=== PATIENT | female | born 1945 | race Caucasian/White ===

== ENCOUNTER 2017-06-04 16:24 | Inpatient (IN) | payer OTHER, MEDICARE ==
[2017-06-02 22:36] VITALS: PULSE 87
[~2017-06-04] VITALS: Ht 162.6 cm; Wt 60.0 kg
[~2017-06-04 16:24] MED LIST: ALBU1AER INH; TRAM50 PO; XANA1TAB6 PO
[2017-06-04 16:27] VITALS: BP 131/89; PULSE 111; RESP 16; TEMP 98; O2SAT 95
[2017-06-04 16:47] VITALS: BP 120/73; PULSE 102; RESP 24; O2SAT 97
[2017-06-04] MEDS ORDERED: PERC10TA27 PO ×2 (16:52)
[2017-06-04] MEDS ORDERED: SODIUM CHLORIDE 0.9% FLUSH 10 ML FLUSH IVF PRN ×2 (17:15)
--- NOTE | 2017-06-04 17:27 | RADRPT ---
EXAM DATE/TIME: 06/04/2017 17:13 [facility] COMPARISON: CHEST SINGLE AP, March 14, 2016, 16:09. INDICATIONS : Short of breath. MEDICAL HISTORY : None. SURGICAL HISTORY : None. ENCOUNTER: Initial ACUITY: 1 day PAIN SCORE: 08/16 LOCATION: Bilateral chest FINDINGS: The right costophrenic angle is not included in the [id number]-[id number] the exam. There is a small triangu lar shape infiltrate in the left lower lung measuring up to 1.5 cm without loss of delineation of the left hemidiaphragm. The remainder of the lungs are clear. The heart is normal size. No evidence o f pneumothorax. CONCLUSION: Small infiltrate at the left lung base. Tenzin Guerrero MD on June 04, 2017 at 17:25 Board Certified Radiologist. This report was verified electronically.
--- NOTE | 2017-06-04 17:27 | RADRPT ---
EXAM DATE/TIME: 06/04/2017 17:13 [facility] COMPARISON: CHEST SINGLE AP, March 14, 2016, 16:09. INDICATIONS : Short of breath. MEDICAL HISTORY : None. SURGICAL HISTORY : None. ENCOUNTER: Initial ACUITY: 1 day PAIN SCORE: 08/16 LOCATION: Bilateral chest FINDINGS: The right costophrenic angle is not included in the [id number] the exam. There is a small triangu lar shape infiltrate in the left lower lung measuring up to 1.5 cm without loss of delineation of the left hemidiaphragm. The remainder of the lungs are clear. The heart is normal size. No evidence o f pneumothorax. CONCLUSION: Small infiltrate at the left lung base. Tenzin Guerrero MD on June 04, 2017 at 17:25 Board Certified Radiologist. This report was verified electronically.
--- NOTE | 2017-06-04 17:27 | RADRPT ---
EXAM DATE/TIME: 06/04/2017 17:13 [facility] COMPARISON: CHEST SINGLE AP, March 14, 2016, 16:09. INDICATIONS : Short of breath. MEDICAL HISTORY : None. SURGICAL HISTORY : None. ENCOUNTER: Initial ACUITY: 1 day PAIN SCORE: 08/16 LOCATION: Bilateral chest FINDINGS: The right costophrenic angle is not included in the [id number] the exam. There is a small triangu lar shape infiltrate in the left lower lung measuring up to 1.5 cm without loss of delineation of the left hemidiaphragm. The remainder of the lungs are clear. The heart is normal size. No evidence o f pneumothorax. CONCLUSION: Small infiltrate at the left lung base. Tenzin Guerrero MD on June 04, 2017 at 17:25 Board Certified Radiologist. This report was verified electronically.
--- NOTE | 2017-06-04 17:59 | PD ---
HPI . Myalgias Chief Complaint: Medical Clearance Time Seen by Provider: 16:51 Travel History International Travel<30 days: No Contact w/Intl Traveler<30days: No Traveled to known affect area: No History of Present Illness HPI This patient presents here with the chief complaint of myalgias and fatigue. She states that her symptoms all started over a month ago when her bones started aching. She states that they've been started burning. She then developed right sided body pain and low back pain. She was seen at [facility] warm and close to the onset of symptoms and was given a prescription for prednisone and Bactrim. She states that she has no idea what the Bactrim was for. She states that she was told that she did not have any evidence of urinary tract infection or pneumonia or any other bacterial infection. Nonetheless, she subsequently followed up with her primary care physician who prescribed Levaquin for 10 days. She does not know why she was given an antibiotic. She states that she did not feel any better with the Levaquin. She states that she was subsequently went back to [facility] and was admitted to the hospital multiple tests done. She states that the etiology of her myalgias and fatigue was not determined and she was eventually discharged home. She states she went home about 4 or 5 days. Since that time, she has been basically bedbound. She reports great difficulty even walking to the bathroom because of weakness, fatigue and myalgias. She thus presents to us today for a third opinion. She reports no exacerbating or relieving factors. Associated symptoms include insomnia, headache and poor appetite. Symptoms are reportedly severe. The patient reports that she is concerned that she has been poisoned. The patient reports no known history of lung disease and states that she smokes 1 cigarette per day. On review of her records, she has been treated here before for COPD exacerbation. She was an admitted smoker at that time. I was about a year ago. [facility] Past Medical History Arthritis: Yes Anxiety: Yes (PANIC ATTACKS) Cancer: Yes (SKIN (NOSE); MELANOMA IN 2007) Cardiovascular Problems: No COPD: Yes Diabetes: No Diminished Hearing: No Endocrine: No Gastrointestinal Disorders: No Glaucoma: No Genitourinary: No Hepatitis: No Hiatal Hernia: No Hypertension: No Implanted Vascular Access Dvce: Yes Psychiatric: Yes (PANIC ATTACKS-NONE SINCE 08/13) Reproductive: No Respiratory: Yes Immunizations Current: No Thyroid Disease: No Influenza Vaccination: Yes PNEUMOCCOCAL Vaccine (Year): 2 ?: Not Menopausal: Yes Past Surgical History Abdominal Surgery: No Appendectomy: Yes Cardiac Surgery: No Ear Surgery: No Eye Surgery: Yes (LENS IMPLANT/LEFT 1988) Genitourinary Surgery: No Gynecologic Surgery: Yes (1988 HYSTERECTOMY) Hysterectomy: Yes Neurologic Surgery: No Oral Surgery: No Pacemaker: No Thoracic Surgery: No Other Surgery: Yes (RIGHT FOOT SURG) Social History Alcohol Use: No Tobacco Use: Yes (1 CIGARETTE/DAY) Substance Use: No Allergies-Medications (Allergen,Severity, Reaction): Coded Allergies: codeine (Unverified Allergy, Severe, HIVES, 06/04/17) Reported Meds & Prescriptions Reported Meds & Active Scripts Active Reported Percocet (Oxycodone-Acetaminophen) 10-325 mg Tab 1 Tab PO Q6H PRN Review of Systems General / Constitutional: No: Fever, Chills Cardiovascular: Positive: Chest Pain or Discomfort Respiratory: Positive: Shortness of Breath Gastrointestinal: Positive: Loss of Appetite Musculoskeletal: Positive: Myalgias Neurologic: Positive: Weakness Physical Exam Narrative Vital Signs Date Time Temp Pulse Resp B/P (MAP) Pulse Ox O2 Delivery O2 Flow Rate FiO2 06/04/17 16:47 102 24 120/73 (89) 97 Room Air 06/04/17 16:27 98.0 111 16 131/89 (103) 95 GENERAL: The patient is awake and alert and does not appear to be in any acute distress. SKIN: warm/dry. HEAD: Normocephalic. Atraumatic. EYES: Pupils equal and round. No scleral icterus. No injection or drainage. ENT: No nasal bleeding or discharge. Mucous membranes pink and moist. NECK: Trachea midline. Full range of motion without pain.. CARDIOVASCULAR: Regular rate and rhythm. Heart sounds are normal. RESPIRATORY: No accessory muscle use. Good air movement. Diffuse, coarse expiratory wheezing. GASTROINTESTINAL: Abdomen soft. Nontender. Bowel sounds present. Nondistended. MUSCULOSKELETAL: No obvious deformities. NEUROLOGICAL: Awake and alert. No obvious cranial nerve deficits. Motor grossly within normal limits. Normal speech. Eowlig-abfj-zdjojd exam is intact. PSYCHIATRIC: Appropriate mood and affect; insight and judgment normal. Data Data Last Documented VS Vital Signs Date Time Temp Pulse Resp B/P (MAP) Pulse Ox O2 Delivery O2 Flow Rate FiO2 10/29/17 18:49 92 16 118/88 (98) 98 Room Air 06/04/17 16:27 98.0 Orders Orders Electrocardiogram (06/04/17 17:08) B-Type Natriuretic Peptide (06/04/17 17:08) Ckmb (Isoenzyme) Profile (06/04/17 17:08) Complete Blood Count With Diff (06/04/17 17:08) Comprehensive Metabolic Panel (06/04/17 17:08) D-Dimer (06/04/17 17:08) Magnesium (Mg) (06/04/17 17:08) Prothrombin Time / Inr (Pt) (06/04/17 17:08) Act Partial Throm Time (Ptt) (06/04/17 17:08) Troponin I (06/04/17 17:08) Chest, Single Ap (06/04/17 17:08) Ecg Monitoring (06/04/17 17:08) Iv Access Insert/Monitor (06/04/17 17:08) Oximetry (06/04/17 17:08) Sodium Chloride 0.9% Flush (Ns Flush) (06/04/17 17:15) Lactic Acid Sepsis Protocol (06/04/17 18:06) Blood Culture (06/04/17 18:06) Piperacil-Tazo 4.5 Gm Premix (Zosyn 4.5 (06/04/17 18:15) Azithromycin Inj (Zithromax Inj) (06/04/17 18:15) Albuterol-Ipratropium Neb (Duoneb Neb) (06/04/17 18:15) Labs Laboratory Tests Test 06/04/17 17:15 06/04/17 18:20 White Blood Count 15.6 TH/MM3 Red Blood Count 4.96 MIL/MM3 Hemoglobin 15.3 GM/DL Hematocrit 44.4 % Mean Corpuscular Volume 89.6 FL Mean Corpuscular Hemoglobin 30.8 PG Mean Corpuscular Hemoglobin Concent 34.4 % Red Cell Distribution Width 15.1 % Platelet Count 290 TH/MM3 Mean Platelet Volume 8.1 FL Neutrophils (%) (Auto) 52.7 % Lymphocytes (%) (Auto) 34.1 % Monocytes (%) (Auto) 11.3 % Eosinophils (%) (Auto) 0.9 % Basophils (%) (Auto) 1.0 % Neutrophils # (Auto) 8.2 TH/MM3 Lymphocytes # (Auto) 5.3 TH/MM3 Monocytes # (Auto) 1.8 TH/MM3 Eosinophils # (Auto) 0.1 TH/MM3 Basophils # (Auto) 0.1 TH/MM3 CBC Comment AUTO DIFF Differential Total Cells Counted 100 Neutrophils % (Manual) 47 % Band Neutrophils % 5 % Lymphocytes % 34 % Monocytes % 14 % Neutrophils # (Manual) 8.1 TH/MM3 Differential Comment FINAL DIFF MANUAL Atypical Lymphocytes % Platelet Estimate NORMAL Platelet Morphology Comment NORMAL Basophilic Stippling FAINT Blood Urea Nitrogen 18 MG/DL Creatinine 0.74 MG/DL Random Glucose 103 MG/DL Total Protein 7.4 GM/DL Albumin 3.2 GM/DL Calcium Level 9.3 MG/DL Magnesium Level 2.6 MG/DL Alkaline Phosphatase 78 U/L Aspartate Amino Transf (AST/SGOT) 31 U/L Alanine Aminotransferase (ALT/SGPT) 111 U/L Total Bilirubin 0.6 MG/DL Sodium Level 136 MEQ/L Potassium Level 4.2 MEQ/L Chloride Level 103 MEQ/L Carbon Dioxide Level 22.9 MEQ/L Anion Gap 10 MEQ/L Estimat Glomerular Filtration Rate 78 ML/MIN Total Creatine Kinase 27 U/L Troponin I LESS THAN 0.02 NG/ML B-Type Natriuretic Peptide 12 PG/ML MDM Medical Decision Making Medical Screen Exam Complete: Yes Emergency Medical Condition: Yes Interpretation(s) EKG shows a normal sinus rhythm with a rate of 93. She has right bundle-branch block. No acute ischemic changes. Differential Diagnosis Differential diagnosis of weakness includes but is not limited to infection, CVA , electrolyte disturbance, renal failure, hypoglycemia, UTI, ACS, acute blood loss Narrative Course This patient presents with weakness, fatigue, myalgias, chest pain and shortness of breath. She has been admitted to [facility] for same in the recent past. We will attempt to obtain his records. Last Impressions Chest X-Ray 06/04/17 7420 Signed Impressions: Service Date/Time: Sunday, June 04, 2017 17:13 - CONCLUSION: Small infiltrate at the left lung base. Tenzin Guerrero MD Blood cultures, a lactic acid level and appropriate antibiotics were subsequently ordered. CBC & BMP Diagram 06/04/17 17:15 Total Protein 7.4, Albumin 3.2 L, Calcium Level 9.3, Magnesium Level 2.6 H, Alkaline Phosphatase 78, Aspartate Amino Transf (AST/SGOT) 31, Alanine Aminotransferase (ALT/SGPT) 111 H, Total Bilirubin 0.6 trop < 0.02 BNP 12 Care is being turned over to Dr. Baker at this time pending records from [facility], d-dimer and lactic acid level. Diagnosis Primary Impression: Myalgia Additional Impressions: Fatigue Qualified Codes: R53.83 - Other fatigue Chest pain Qualified Codes: R07.9 - Chest pain, unspecified Shortness of breath Left lower lobe pneumonia Qualified Codes: J18.1 - Lobar pneumonia, unspecified organism Condition: Stable Korina Warren MD Jun 04, 2017 17:59
[2017-06-04 18:03] LABS: AUTOMATED NEUTROPHIL # 8.2 TH/MM3 (1.8-7.7); BASOPHIL # 0.1 TH/MM3 (0-0.2); EOSINOPHIL # 0.1 TH/MM3 (0-0.4); EOSINOPHIL % 0.9 % (0.0-4.0); HEMATOCRIT 44.4 % (35.0-46.0); HEMOGLOBIN 15.3 GM/DL (11.6-15.3); LYMPH % 34.1 % (9.0-44.0); LYMPHOCYTE # 5.3 TH/MM3 (1.0-4.8); MEAN CELL VOLUME 89.6 FL (80.0-100.0); MEAN CORPUSCULAR HEMOGLOBIN 30.8 PG (27.0-34.0); MEAN CORPUSCULAR HGB CONC 34.4 % (32.0-36.0); MEAN PLATELET VOLUME 8.1 FL (7.0-11.0); MONO % 11.3 % (0.0-8.0); MONOCYTE # 1.8 TH/MM3 (0-0.9); NEUT % 52.7 % (16.0-70.0); PLATELET COUNT 290 TH/MM3 (150-450); RED BLOOD COUNT 4.96 MIL/MM3 (4.00-5.30); RED CELL DISTRIBUTION WIDTH 15.1 % (11.6-17.2); WHITE BLOOD COUNT 15.6 TH/MM3 (4.0-11.0)
[2017-06-04 18:04] LABS: ALBUMIN 3.2 GM/DL (3.4-5.0); AST (GOT) 31 U/L (15-37); BICARBONATE 22.9 MEQ/L (21.0-32.0); BLOOD UREA NITROGEN 18 MG/DL (7-18); CALCIUM 9.3 MG/DL (8.5-10.1); CHLORIDE 103 MEQ/L (98-107); CREATININE 0.74 MG/DL (0.50-1.00); GLOMERULAR FILTRATION RATE 78 ML/MIN (>89); GLUCOSE,RANDOM 103 MG/DL (74-106); MAGNESIUM 2.6 MG/DL (1.5-2.5); SODIUM (NA) 136 MEQ/L (136-145)
[2017-06-04 18:05] LABS: ALT (GPT) 111 U/L (10-53)
[2017-06-04 18:09] LABS: ALKALINE PHOSPHATASE 78 U/L (45-117); TOTAL BILIRUBIN ADULT 0.6 MG/DL (0.2-1.0); TOTAL PROTEIN 7.4 GM/DL (6.4-8.2); TROPONIN I LESS THAN 0.02 NG/ML (0.02-0.05)
[2017-06-04] MEDS ORDERED: PIPERACIL-TAZO 4.5 GM PREMIX 100 ML IV ONE ×2 (18:15)
[2017-06-04] MEDS ORDERED: AZITHROMYCIN INJ 500 MG in SODIUM CHLOR 0.9% 250 ML INJ 250 ML IV ONE ×4 (18:15)
[2017-06-04 18:46] LABS: BANDS 5 % (0-6); LYMPHOCYTES 34 % (9-44); MONOCYTES 14 % (0-8); NEUTROPHIL # MANUAL DIFF 8.1 TH/MM3 (1.8-7.7); POLYS (SEG NEUTROPHILS) 47 % (16-70)
[2017-06-04 18:49] VITALS: BP 118/88; PULSE 92; RESP 16; O2SAT 98
--- NOTE | 2017-06-04 19:09 | PD ---
Physical Exam Narrative General: The patient is a well-developed well-nourished female in no acute distress. Head and Neck exam: Head is normocephalic atraumatic. Eyes: EOMI, pupils are equal round and reactive to light. Nose: Midline septum with pink mucous membranes Mouth: Dentition unremarkable. Moist mucus membranes. Posterior oropharynx is not erythematous. No tonsillar hypertrophy. Uvula midline. Airway patent. Neck: No palpable lymphadenopathy. No nuchal rigidity. No thyromegaly. Cardiovascular: Regular rate and rhythm without murmurs, gallops, or rubs. Lungs: Clear to auscultation bilaterally. No wheezes, rhonchi, or rales. Abdomen: Soft, without tenderness to palpation in all 4 quadrants of the abdomen. No guarding, rebound, or rigidity. Normal bowel sounds are audible. No tenderness on palpation of McBurney's point. Extremities: No clubbing, cyanosis, or edema. 2+ pulses in all 4 extremities. No calf tenderness on palpation. Back: No costovertebral angle tenderness to palpation. Neurologic Exam: Grossly nonfocal. Skin Exam: No rash noted. Intact skin that is warm and dry. Data Data Last Documented VS Vital Signs Date Time Temp Pulse Resp B/P (MAP) Pulse Ox O2 Delivery O2 Flow Rate FiO2 06/04/17 18:49 92 16 118/88 (98) 98 Room Air 06/04/17 16:27 98.0 Orders Orders Electrocardiogram (06/04/17 17:08) B-Type Natriuretic Peptide (06/04/17 17:08) Ckmb (Isoenzyme) Profile (06/04/17 17:08) Complete Blood Count With Diff (06/04/17 17:08) Comprehensive Metabolic Panel (06/04/17 17:08) Magnesium (Mg) (06/04/17 17:08) Prothrombin Time / Inr (Pt) (06/04/17 17:08) Act Partial Throm Time (Ptt) (06/04/17 17:08) Troponin I (06/04/17 17:08) Chest, Single Ap (06/04/17 17:08) Ecg Monitoring (06/04/17 17:08) Iv Access Insert/Monitor (06/04/17 17:08) Oximetry (06/04/17 17:08) Sodium Chloride 0.9% Flush (Ns Flush) (06/04/17 17:15) Lactic Acid Sepsis Protocol (06/04/17 18:06) Blood Culture (06/04/17 18:06) Piperacil-Tazo 4.5 Gm Premix (Zosyn 4.5 (06/04/17 18:15) Azithromycin Inj (Zithromax Inj) (06/04/17 18:15) Albuterol-Ipratropium Neb (Duoneb Neb) (06/04/17 18:15) D-Dimer (06/04/17 19:10) Acetaminophen (Tylenol) (06/04/17 19:30) Sodium Chlorid 0.9% 500 Ml Inj (Ns 500 M (06/04/17 20:00) Sodium Chlor 0.9% 1000 Ml Inj (Ns 1000 M (06/04/17 20:00) Admit Order (Ed Use Only) (06/04/17 21:07) Construction Manager / Telemetry [id number] (06/04/17 21:11) Vital Signs (Adult) Q4H (06/04/17 21:11) Diet Heart Healthy (06/05/17 Breakfast) Activity Bed Rest (06/04/17 21:11) Notify Dr: Other (06/04/17 21:11) Oxycodone-Acetamin 5-325 Mg (Percocet (06/04/17 21:15) Labs Laboratory Tests Test 06/04/17 17:15 06/04/17 18:20 06/04/17 20:05 White Blood Count 15.6 TH/MM3 Red Blood Count 4.96 MIL/MM3 Hemoglobin 15.3 GM/DL Hematocrit 44.4 % Mean Corpuscular Volume 89.6 FL Mean Corpuscular Hemoglobin 30.8 PG Mean Corpuscular Hemoglobin Concent 34.4 % Red Cell Distribution Width 15.1 % Platelet Count 290 TH/MM3 Mean Platelet Volume 8.1 FL Neutrophils (%) (Auto) 52.7 % Lymphocytes (%) (Auto) 34.1 % Monocytes (%) (Auto) 11.3 % Eosinophils (%) (Auto) 0.9 % Basophils (%) (Auto) 1.0 % Neutrophils # (Auto) 8.2 TH/MM3 Lymphocytes # (Auto) 5.3 TH/MM3 Monocytes # (Auto) 1.8 TH/MM3 Eosinophils # (Auto) 0.1 TH/MM3 Basophils # (Auto) 0.1 TH/MM3 CBC Comment AUTO DIFF Differential Total Cells Counted 100 Neutrophils % (Manual) 47 % Band Neutrophils % 5 % Lymphocytes % 34 % Monocytes % 14 % Neutrophils # (Manual) 8.1 TH/MM3 Differential Comment FINAL DIFF MANUAL Atypical Lymphocytes % Platelet Estimate NORMAL Platelet Morphology Comment NORMAL Basophilic Stippling FAINT Prothrombin Time 10.4 SEC Prothromb Time International Ratio 0.9 RATIO Activated Partial Thromboplast Time 25.4 SEC Blood Urea Nitrogen 18 MG/DL Creatinine 0.74 MG/DL Random Glucose 103 MG/DL Total Protein 7.4 GM/DL Albumin 3.2 GM/DL Calcium Level 9.3 MG/DL Magnesium Level 2.6 MG/DL Alkaline Phosphatase 78 U/L Aspartate Amino Transf (AST/SGOT) 31 U/L Alanine Aminotransferase (ALT/SGPT) 111 U/L Total Bilirubin 0.6 MG/DL Sodium Level 136 MEQ/L Potassium Level 4.2 MEQ/L Chloride Level 103 MEQ/L Carbon Dioxide Level 22.9 MEQ/L Anion Gap 10 MEQ/L Estimat Glomerular Filtration Rate 78 ML/MIN Total Creatine Kinase 27 U/L Troponin I LESS THAN 0.02 NG/ML B-Type Natriuretic Peptide 12 PG/ML Lactic Acid Level 0.8 mmol/L D-Dimer Quantitative (PE/DVT) 0.32 MG/L [facility] Medical Record Reviewed: Yes Supervised Visit with COBY: No Interpretation(s) Last Impressions Chest X-Ray 06/04/17 1704 Signed Impressions: Service Date/Time: Sunday, June 04, 2017 17:13 - CONCLUSION: Small infiltrate at the left lung base. Tenzin Guerrero MD Narrative Course During the course of the patients emergency department visit, the patients history, examination, and differential diagnosis were reviewed with the patient. The patient was placed on a registered nurse cardiac with oximetry and frequent blood pressure monitoring. The patient had IV access obtained and blood work sent for analysis. The patient was initially seen by Dr. Warren. Please see her complete history and physical. The patient's case was checked out to me at the conclusion of her shift. The patient reports a one-month history of illness with recent admission to [facility]. The patient reports that she's been on multiple courses of antibiotic and steroids. The patient cannot recall what antibiotic she is on currently. The patient was initially provided Zosyn and 8 azithromycin. The patient was given a DuoNeb. The patients laboratory studies were reviewed and remarkable for a white count of 15.6, hemoglobin 15.3, platelets 290 with 14 monocytes, CMP is remarkable for a GFR 78, magnesium 2.6, ALT 111, initial set of cardiac enzymes are within normal limits, BNP 12, albumin 3.2, lactic acid 0.8, PT PTT within normal limits. D-dimer is 0.3 to decrease the likelihood of pulmonary embolism in this patient with no other significant risk factors. Radiology studies were reviewed and remarkable for a chest x-ray that shows a small infiltrate at the left lung base. The patients results were discussed with the patient, including the plan of care. I explained that further testing and/ or monitoring is indicated based on the patients history, examination, and/ or laboratory findings. Therefore, I recommended admission for additional evaluation. The patient expressed understanding and was agreeable with this plan. The patient was admitted to the hospital in stable condition and sent to a bed under the care of the [facility] service. Sepsis Criteria SIRS Criteria (2 or more): Heart rate over 90, WBC > 48956, < 4000 or > 10% bands Physician Communication Physician Communication The patient's case including history, pertinent physical examination findings, and laboratory studies were discussed with Dr. Saunders. It was agreed that the patient would be admitted to the [facility] service. Diagnosis Primary Impression: Myalgia Additional Impressions: Fatigue Qualified Codes: R53.83 - Other fatigue Shortness of breath Left lower lobe pneumonia Qualified Codes: J18.1 - Lobar pneumonia, unspecified organism Chest pain Qualified Codes: R07.9 - Chest pain, unspecified Admitting Information Admitting Physician Requests: Admit Condition: Stable Mallory Baker MD Jun 04, 2017 19:09
[2017-06-04 19:11] LABS: INTERNATIONAL NORMALIZED RATIO 0.9 RATIO; PROTHROMBIN TIME - PATIENT 10.4 SEC (9.8-11.6)
[2017-06-04] MEDS: RESP: ALBUTEROL 2.5 MG/IPRATROPIUM 0.5 MG NEB (SCH) INH ×4 (19:22→19:23)
[2017-06-04] MEDS ORDERED: ACETAMINOPHEN 325 MG TAB PO ONE ×2 (19:30)
[2017-06-04] MEDS ORDERED: SODIUM CHLOR 0.9% 1000 ML INJ 1,000 ML IV SCH ×2 (20:00)
[2017-06-04] MEDS ORDERED: SODIUM CHLORID 0.9% 500 ML INJ 500 ML IV ONE ×2 (20:00)
[2017-06-04] MEDS ORDERED: NALOXONE HCL 0.4 MG/ML AMP IV PUSH PRN ×2 (21:15)
[2017-06-04] MEDS ORDERED: oxyCODONE/ACETAMINOPHEN 5 MG/325 MG TAB PO ONE ×2 (21:15)
[2017-06-04] MEDS ORDERED: LACTULOSE SYRUP 20 GM/30 ML CUP PO PRN ×2 (21:15)
[2017-06-04] MEDS ORDERED: SODIUM CHLORIDE 0.9% FLUSH 10 ML FLUSH IV FLUSH PRN ×2 (21:15)
[2017-06-04] MEDS ORDERED: SENNOSIDES 8.6 MG TAB PO PRN ×2 (21:15)
[2017-06-04] MEDS ORDERED: MAGNESIUM HYDROXIDE SUSP 30 ML CUP PO PRN ×2 (21:15)
[2017-06-04] MEDS ORDERED: BISACODYL 10 MG SUPP RECTAL PRN ×2 (21:15)
[2017-06-04 21:23] VITALS: O2SAT 97
[2017-06-04] MEDS: SODIUM CHLOR 0.9% 1000 ML INJ 1,000 ML IV SCH ×2 (21:23)
[2017-06-04] MEDS: RESP: ALBUTEROL 2.5 MG/IPRATROPIUM 0.5 MG NEB (SCH) NEB ×2 (21:24)
--- NOTE | 2017-06-04 21:28 | HHI.HP ---
HPI Service [facility] Primary Care Physician Padmaja Garcia MD Admission Diagnosis Pneumonia Diagnoses: Chief Complaint: scotty velasquez Travel History International Travel<30 Days: No Contact w/Intl Traveler <30 Da: No Traveled to Known Affected Are: No History of Present Illness Written by CARLOS Ying acting as scribe for Dr. Christie] on 06/04/17 at 21:25. 71 y/o female with a history of osteoporosis and tobacco use presented to the ED with complaints of shortness of breath, cough, bone pain and fatigue. Patient states she has been having these symptoms constant for the last month. She has been treated with Levaquin 10 days ago by her PCP, and 7 days ago she was seen at her PCP office where she felt light headed and had a syncopal episode. She was admitted to [facility] but nothing was discovered and she states she was still sick when discharged. She is complaining of right lower dull pain to her lateral chest with radiation to her back, with associated fever (unknown temp at home) chills, and non productive cough. She states she has had a loss of appetite with right upper quadrant tenderness and a 7-8 LB weight loss in the last month. Review of Systems Except as stated in HPI: all other systems reviewed are Neg Past Family Social History Past Medical History Osteoporosis Past Surgical History Eye Surgery Appendectomy right ankle repair Reported Medications Reported Meds & Active Scripts Active Reported Percocet (Oxycodone-Acetaminophen) 10-325 mg Tab 1 Tab PO Q6H PRN Allergies: Coded Allergies: codeine (Unverified Allergy, Severe, HIVES, 06/04/17) Active Ordered Medications Current Medications Medications (Trade) Dose Ordered Sig/Christopher Route Start Time Stop Time Status Last Admin Sodium Chloride 1,000 ml @ 75 mls/hr [id number] IV 06/04/17 21:14 06/05/17 08:00 06/04/17 21:23 (NS Flush) 2 ml UNSCH PRN IV FLUSH 06/04/17 21:15 (NS Flush) 2 ml BID IV FLUSH 06/05/17 09:00 (Zofran Inj) 4 mg Q6H PRN IVP 06/04/17 21:15 (Heparin Inj) 5,000 units Q12H SQ 06/04/17 21:15 (Narcan Inj) 0.4 mg UNSCH PRN IV PUSH 06/04/17 21:15 (Milk Of Magnesia Liq) 30 ml Q12H PRN PO 06/04/17 21:15 (Senokot) 17.2 mg Q12H PRN PO 06/04/17 21:15 (Dulcolax Supp) 10 mg DAILY PRN RECTAL 06/04/17 21:15 (Lactulose Liq) 30 ml DAILY PRN PO 06/04/17 21:15 Piperacillin Sod/ Tazobactam Sod 50 ml @ 100 mls/hr Q6H IV 06/05/17 02:00 Vancomycin HCl 1000 mg/Sodium Chloride 250 ml @ 250 mls/hr Q12H IV 06/04/17 22:00 (Duoneb Neb) 1 ampule Q6HR NEB NEB 06/04/17 22:00 Family History Denies any family history Social History Tobacco use: 1/2 PPD from age 34 to 40s, now a few cigarettes a day Alcohol use: Denies Illicit drug use: Denies Physical Exam Vital Signs Vital Signs Date Time Temp Pulse Resp B/P (MAP) Pulse Ox O2 Delivery O2 Flow Rate FiO2 06/04/17 21:23 97 06/04/17 18:49 92 16 118/88 (98) 98 Room Air 06/04/17 16:47 102 24 120/73 (89) 97 Room Air 06/04/17 16:27 98.0 111 16 131/89 (103) 95 Physical Exam GENERAL: This is a well-nourished, well-developed patient, in no apparent distress. SKIN: No rashes, ecchymoses or lesions. Cool and dry. HEAD: Atraumatic. Normocephalic. No temporal or scalp tenderness. EYES: Pupils equal round and reactive. Extraocular motions intact. No scleral icterus. No injection or drainage. ENT: Nose without bleeding, purulent drainage or septal hematoma. Airway patent. NECK: Trachea midline. No JVD or lymphadenopathy. Supple, nontender, no meningeal signs. CARDIOVASCULAR: Regular rate and rhythm without murmurs, gallops, or rubs. RESPIRATORY: Bilateral wheezes, no rales, or rhonchi. GASTROINTESTINAL: Abdomen soft, RUQ tenderness, nondistended. MUSCULOSKELETAL: Extremities without clubbing, cyanosis, or edema. No joint tenderness, effusion, or edema noted. No calf tenderness. NEUROLOGICAL: Awake and alert. Motor and sensory grossly within normal limits. Normal speech. Laboratory Laboratory Tests Test 06/04/17 17:15 06/04/17 18:20 06/04/17 20:05 White Blood Count 15.6 Red Blood Count 4.96 Hemoglobin 15.3 Hematocrit 44.4 Mean Corpuscular Volume 89.6 Mean Corpuscular Hemoglobin 30.8 Mean Corpuscular Hemoglobin Concent 34.4 Red Cell Distribution Width 15.1 Platelet Count 290 Mean Platelet Volume 8.1 Neutrophils (%) (Auto) 52.7 Lymphocytes (%) (Auto) 34.1 Monocytes (%) (Auto) 11.3 Eosinophils (%) (Auto) 0.9 Basophils (%) (Auto) 1.0 Neutrophils # (Auto) 8.2 Lymphocytes # (Auto) 5.3 Monocytes # (Auto) 1.8 Eosinophils # (Auto) 0.1 Basophils # (Auto) 0.1 CBC Comment AUTO DIFF Differential Total Cells Counted 100 Neutrophils % (Manual) 47 Band Neutrophils % 5 Lymphocytes % 34 Monocytes % 14 Neutrophils # (Manual) 8.1 Differential Comment FINAL DIFF MANUAL Atypical Lymphocytes Platelet Estimate NORMAL Platelet Morphology Comment NORMAL Basophilic Stippling FAINT Prothrombin Time 10.4 Prothromb Time International Ratio 0.9 Activated Partial Thromboplast Time 25.4 Blood Urea Nitrogen 18 Creatinine 0.74 Random Glucose 103 Total Protein 7.4 Albumin 3.2 Calcium Level 9.3 Magnesium Level 2.6 Alkaline Phosphatase 78 Aspartate Amino Transf (AST/SGOT) 31 Alanine Aminotransferase (ALT/SGPT) 111 Total Bilirubin 0.6 Sodium Level 136 Potassium Level 4.2 Chloride Level 103 Carbon Dioxide Level 22.9 Anion Gap 10 Estimat Glomerular Filtration Rate 78 Total Creatine Kinase 27 Troponin I LESS THAN 0.02 B-Type Natriuretic Peptide 12 Lactic Acid Level 0.8 D-Dimer Quantitative (PE/DVT) 0.32 Date/Time Source Procedure Growth Status 06/04/17 18:20 Blood Peripheral Aerobic Blood Culture Pending Received 06/04/17 18:20 Blood Peripheral Anaerobic Blood Culture Pending Received Result Diagram: 06/04/175 06/04/171714 Imaging Last Impressions Chest X-Ray 06/04/17 1708 Signed Impressions: Service Date/Time: Sunday, June 04, 2017 17:13 - CONCLUSION: Small infiltrate at the left lung base. MD Gabbie Lezama VTE Risk Assessment Caprini VTE Risk Assessment: Mod/High Risk (score >= 2) Caprini Risk Assessment Model Point Value = 1 Point Value = 2 Point Value = 3 Point Value = 5 Age 41-60 Minor surgery BMI > 25 kg/m2 Swollen legs Varicose veins or History of unexplained or recurrent spontaneous Oral contraceptives or hormone replacement Sepsis (< 1 month) Serious lung disease, including pneumonia (< 1 month) Abnormal pulmonary function Acute myocardial infarction Congestive heart failure (< 1 month) History of inflammatory bowel disease Medical patient at bed rest Age 61-74 Arthroscopic surgery Major open surgery (> 45 min) Laparoscopic surgery (> 45 min) Malignancy Confined to bed (> 72 hours) Immobilizing plaster cast Central venous access Age >= 75 History of VTE Family history of VTE Factor V Leiden Prothrombin [id number] Lupus anticoagulant Anticardiolipin antibodies Elevated serum homocysteine Heparin-induced thrombocytopenia Other congenital or acquired thrombophilia Stroke (< 1 month) Elective arthroplasty Hip, pelvis, or leg fracture Acute spinal cord injury (< 1 month) Prophylaxis Regimen Total Risk Factor Score Risk Level Prophylaxis Regimen 0-1 Low Early ambulation 2 Moderate Order ONE of the following: *Sequential Compression Device (SCD) *Heparin 5000 units SQ BID 3-4 Higher Order ONE of the following medications: *Heparin 5000 units SQ TID *Enoxaparin/Lovenox 40 mg SQ daily (WT < 150 kg, CrCl > 30 mL/min) *Enoxaparin/Lovenox 30 mg SQ daily (WT < 150 kg, CrCl > 10-29 mL/min) *Enoxaparin/Lovenox 30 mg SQ BID (WT < 150 kg, CrCl > 30 mL/min) AND/OR *Sequential Compression Device (SCD) 5 or more Highest Order ONE of the following medications: *Heparin 5000 units SQ TID (Preferred with Epidurals) *Enoxaparin/Lovenox 40 mg SQ daily (WT < 150 kg, CrCl > 30 mL/min) *Enoxaparin/Lovenox 30 mg SQ daily (WT < 150 kg, CrCl > 10-29 mL/min) *Enoxaparin/Lovenox 30 mg SQ BID (WT < 150 kg, CrCl > 30 mL/min) AND *Sequential Compression Device (SCD) Assessment and Plan Problem List: (1) Left lower lobe pneumonia ICD Code: J18.1 - Lobar pneumonia, unspecified organism Status: Acute (2) Transaminitis ICD Code: R74.0 - Nonspecific elevation of levels of transaminase and lactic acid dehydrogenase [LDH] Assessment and Plan 71 y/o female with a history of osteoporosis and tobacco use presented to the ED with complaints of shortness of breath, cough, bone pain and fatigue. Patient states she has been having these symptoms constant for the last month. Sepsis, source Pneumonia, left lower lobe, failed outpatient Levaquin WBC 15.6, HR 111 Chest x ray reviewed and shows a small infiltrate at the left lung base -IV antibiotics Zosyn and Vancomycin -CT thorax/ Chest ordered -Consult pulmonology for recommendations -Duoneb scheduled and PRN Transaminitis, ALT 111, Patient with RUQ tenderness -Liver US ordered -Hepatitis profile ordered Tobacco use, chronic -Encouraged to quit DVT prophylaxis: Heparin Discussed Condition With Patient and ED physician Physician Certification 2 Midnight Certification Type: Admission for Inpatient Services Order for Inpatient Services The services are ordered in accordance with Medicare regulations or non- Medicare payer requirements, as applicable. In the case of services not specified as inpatient-only, they are appropriately provided as inpatient services in accordance with the 2-midnight benchmark. Estimated LOS (days): 3 days is the estimated time the patient will need to remain in the hospital, assuming treatment plan goals are met and no additional complications. Post-Hospital Plan: Not yet determined Notes: This note was transcribed by bryan Chawla. I, Dr. Felipe Saunders personally performed the history, physical exam, and medical decision making; and confirmed the accuracy of the information in the transcribed note. Authenticated by Dr. Felipe Saunders on 06/05/17 at 01:15. Problem Qualifiers (1) Left lower lobe pneumonia: Qualified Codes: J18.1 - Lobar pneumonia, unspecified organism Kaylah Chawla Jun 04, 2017 21:28 Felipe Saunders MD Jun 05, 2017 01:15
[2017-06-04] MEDS: HEPARIN SODIUM - SQ 10,000 UNITS/ML VIAL SQ SCH ×2 (22:01)
--- NOTE | 2017-06-04 22:03 | RADRPT ---
EXAM DATE/TIME: 06/04/2017 21:44 [facility] COMPARISON: CHEST SINGLE AP, June 04, 2017, 17:13. INDICATIONS : Shortness of breath possible pneumonia. RADIATION DOSE: 3.72 CTDIvol (mGy) MEDICAL HISTORY : Chronic obstructive pulmonary disease. Melanoma. SURGICAL HISTORY : Appendectomy. Hysterectomy. ENCOUNTER: Initial ACUITY: 1 day PAIN SCALE: 9/10 LOCATION: chest TECHNIQUE: Volumetric scanning of the chest was performed. Using automated exposure control and adjustment of t he mA and/or kV according to patient size, radiation dose was kept as low as reasonably achievable to obtain optimal diagnostic quality images. DICOM format image data is available electronically for r eview and comparison. Follow-up recommendations for detected pulmonary nodules are based at a minimum on nodule size and pa tient risk factors according to Fleischner Society Guidelines. FINDINGS: LUNGS: There is a small triangular-shaped opacity in the anterior lateral left lower lung adjacent to the ep icardial fat. This is seen on both the axial and coronal reconstruction images. The appearance is c haracteristic of either a focal area of scarring or subsegmental infiltrate. This correlates with th e opacity seen on chest x-ray. The remainder of the lungs are clear. PLEURAE: There is no pleural thickening or pleural effusion. MEDIASTINUM: The heart and great vessels demonstrate no acute abnormality. There is no mediastinal or hilar lymph adenopathy. AXILLAE: Within normal limits. No lymphadenopathy. MUSCULOSKELETAL: Within normal limits for patient age. MISCELLANEOUS: The visualized upper abdominal organs demonstrate no acute abnormality. CONCLUSION: Small opacity anterolateral left lower lung; infiltrate versus scarring.. Tenzin Guerrero MD on June 04, 2017 at 21:54 Board Certified Radiologist. This report was verified electronically.
[2017-06-04] MEDS: VANCOMYCIN INJ 1,000 MG in SODIUM CHLOR 0.9% 250 ML INJ 250 ML IV SCH ×4 (22:18)
[2017-06-04 23:40] VITALS: PULSE 87
[2017-06-04 23:42] VITALS: BP 98/60; PULSE 82; RESP 17; TEMP 96.4; O2SAT 96
--- NOTE | 2017-06-04 23:49 | RADRPT ---
EXAM DATE/TIME: 06/04/2017 22:21 [facility] COMPARISON: No previous studies available for comparison. INDICATIONS : Increased labs. MEDICAL HISTORY : Arthritis. COPD. Melenoma. SURGICAL HISTORY : Appendectomy. Hysterectomy. Lens implant left eye. ENCOUNTER: Initial ACUITY: 1 day PAIN SCORE: 6/10 LOCATION: Bilateral upper quadrant MEASUREMENTS: LIVER: 15.4 cm length COMMON DUCT: 2 mm RIGHT KIDNEY: 10.9 x 4.3 x 4.2 cm SPLEEN: 8.8 cm length FINDINGS: LIVER: Normal echotexture without focal lesion or ductal dilatation. COMMON DUCT: No intraluminal mass or stone visualized. GALLBLADDER: Contains no stones, demonstrates no wall thickening or pericholecystic fluid. PANCREAS: The visualized portions are within normal limits. RIGHT KIDNEY: No hydronephrosis, stone or mass. SPLEEN: No focal lesion. CONCLUSION: Normal examination. Wade Samaniego MD on June 04, 2017 at 23:46 Board Certified Radiologist. This report was verified electronically.
[2017-06-05] MEDS: PIPERACIL-TAZO 3.375 GM PREMIX 50 ML IV SCH ×8 (02:10→20:26)
[2017-06-05] MEDS: oxyCODONE/ACETAMINOPHEN 5 MG/325 MG TAB PO PRN ×10 (03:04→20:25)
[2017-06-05] MEDS: RESP: ALBUTEROL 2.5 MG/IPRATROPIUM 0.5 MG NEB (SCH) NEB ×8 (03:49→21:38)
[2017-06-05 04:51] VITALS: BP 107/67; PULSE 72; RESP 16; TEMP 97.9; O2SAT 97
[2017-06-05 06:54] LABS: AUTOMATED NEUTROPHIL # 5.9 TH/MM3 (1.8-7.7); BASOPHIL % 0.3 % (0.0-2.0); EOSINOPHIL # 0.2 TH/MM3 (0-0.4); EOSINOPHIL % 1.9 % (0.0-4.0); HEMATOCRIT 39.7 % (35.0-46.0); HEMOGLOBIN 13.3 GM/DL (11.6-15.3); LYMPH % 36.7 % (9.0-44.0); LYMPHOCYTE # 4.2 TH/MM3 (1.0-4.8); MEAN CORPUSCULAR HEMOGLOBIN 30.2 PG (27.0-34.0); MEAN CORPUSCULAR HGB CONC 33.5 % (32.0-36.0); MEAN PLATELET VOLUME 7.4 FL (7.0-11.0); MONO % 9.6 % (0.0-8.0); MONOCYTE # 1.1 TH/MM3 (0-0.9); NEUT % 51.5 % (16.0-70.0); PLATELET COUNT 259 TH/MM3 (150-450); RED CELL DISTRIBUTION WIDTH 15.3 % (11.6-17.2); WHITE BLOOD COUNT 11.5 TH/MM3 (4.0-11.0)
[2017-06-05 07:17] LABS: ALBUMIN 2.9 GM/DL (3.4-5.0); ALT (GPT) 89 U/L (10-53); AST (GOT) 27 U/L (15-37); BICARBONATE 24.4 MEQ/L (21.0-32.0); BLOOD UREA NITROGEN 14 MG/DL (7-18); CALCIUM 8.6 MG/DL (8.5-10.1); CHLORIDE 108 MEQ/L (98-107); GLOMERULAR FILTRATION RATE 99 ML/MIN (>89); GLUCOSE,RANDOM 95 MG/DL (74-106); SODIUM (NA) 140 MEQ/L (136-145)
[2017-06-05 07:20] LABS: ALKALINE PHOSPHATASE 65 U/L (45-117); TOTAL BILIRUBIN ADULT 0.7 MG/DL (0.2-1.0); TOTAL PROTEIN 6.5 GM/DL (6.4-8.2)
[2017-06-05 08:00] VITALS: BP 111/67; PULSE 96; RESP 18; TEMP 96.2; O2SAT 97
[2017-06-05] MEDS: VANCOMYCIN INJ 1,000 MG in SODIUM CHLOR 0.9% 250 ML INJ 250 ML IV SCH ×8 (09:44→22:57)
[2017-06-05] MEDS: HEPARIN SODIUM - SQ 10,000 UNITS/ML VIAL SQ SCH ×4 (09:45→20:29)
[2017-06-05] MEDS: SODIUM CHLORIDE 0.9% FLUSH 10 ML FLUSH IV FLUSH SCH ×4 (09:46→20:29)
[2017-06-05 11:49] VITALS: BP 130/69; PULSE 101; RESP 19; TEMP 98.6; O2SAT 95
[2017-06-05 12:00] VITALS: BP 130/69; PULSE 101; RESP 19; TEMP 98.6; O2SAT 95
[2017-06-05 12:08] LABS: HEPATITIS A AB IGM NEGATIVE (NEGATIVE); HEPATITIS B SURFACE ANTIGEN NEGATIVE (NEGATIVE); HEPATITIS C AB IgG REACTIVE (NEGATIVE)
--- NOTE | 2017-06-05 12:20 | EKG ---
Date Performed: 06/04/2017 Time Performed: 17:28:22 PTAGE: 71 years EKG: Sinus rhythm INDETERMINATE AXIS INCOMPLETE RIGHT BUNDLE BRANCH BLOCK ABNORMAL ECG PREVIOUS TRACING : 09/21/2012 18.01 Compared to prior tracing no significant change DOCTOR: Aidan Shipley Interpretating Date/Time 06/05/2017 12:15:57
[2017-06-05] MEDS: SODIUM CHLOR 0.9% 1000 ML INJ 1,000 ML IV SCH ×2 (15:57)
[2017-06-05 16:00] VITALS: BP 128/77; PULSE 98; RESP 19; TEMP 99.7; O2SAT 98
--- NOTE | 2017-06-05 16:51 | HHI.PR ---
Subjective Remarks Patient reported positive cough and phlegm, Afebrile overnight Objective Vitals Vital Signs Date Time Temp Pulse Resp B/P (MAP) Pulse Ox O2 Delivery O2 Flow Rate FiO2 06/05/17 16:00 99.7 98 19 128/77 (94) 98 06/05/17 12:00 98.6 101 19 130/69 (89) 95 06/05/17 11:49 98.6 101 19 130/69 (89) 95 06/05/17 08:00 96.2 96 18 111/67 (82) 97 06/05/17 04:51 97.9 72 16 107/67 (80) 97 06/05/17 04:04 18 06/04/17 23:42 96.4 82 17 98/60 (73) 96 06/04/17 23:40 87 06/04/17 22:20 18 06/04/17 21:23 97 06/04/17 18:49 92 16 118/88 (98) 98 Room Air I/O 06/04/17 06/04/17 06/04/17 06/05/17 06/05/17 06/05/17 07:00 15:00 23:00 07:00 15:00 23:00 Intake Total 880 ml 1420 ml Balance 880 ml 1420 ml Intake Oral 580 ml 120 ml IV Total 300 ml 1300 ml # Voids 3 Result Diagram: 06/05/1762106/05/17621 Objective Remarks GENERAL: This is a well-nourished, well-developed patient, in no apparent distress. SKIN: No rashes, warm and dry HEAD: Atraumatic. Normocephalic. EYES: Pupils equal round and reactive. . No scleral icterus. ENT: Nose without bleeding, or drainage, Airway patent. NECK: Trachea midline. Supple CARDIOVASCULAR: Regular rate and rhythm without murmurs, gallops, or rubs. RESPIRATORY: Bilateral crackles bibasilar with significant wheezing bilaterally GASTROINTESTINAL: Abdomen soft, non-tender, nondistended. Positive bowel sounds MUSCULOSKELETAL: Extremities without clubbing, cyanosis, or edema. Pedal pulses appreciated NEUROLOGICAL: Awake and alert. Moves all extremity. Normal speech.no focal neurological deficit A/P Problem List: (1) Left lower lobe pneumonia ICD Code: J18.1 - Lobar pneumonia, unspecified organism Status: Acute (2) Transaminitis ICD Code: R74.0 - Nonspecific elevation of levels of transaminase and lactic acid dehydrogenase [LDH] Assessment and Plan 71 y/o female with a history of osteoporosis and tobacco use presented to the ED with complaints of shortness of breath, cough, bone pain and fatigue. Patient states she has been having these symptoms constant for the last month. 06/05: WBC dropped to 11.5, ultrasound of the liver within normal limit, decrease ALT, follow LFT in a.m. Sepsis, source Pneumonia, left lower lobe, failed outpatient Levaquin WBC 15.6, HR 111 Chest x ray reviewed and shows a small infiltrate at the left lung base -IV antibiotics Zosyn and Vancomycin -CT thorax/ Chest ordered -Appreciate pulmonary consult -Duoneb scheduled and PRN Transaminitis, ALT 111, Patient with RUQ tenderness -Liver US unremarkable -Hepatitis profile pending Tobacco use, chronic -Encouraged to quit DVT prophylaxis: Heparin Problem Qualifiers (1) Left lower lobe pneumonia: Qualified Codes: J18.1 - Lobar pneumonia, unspecified organism Ivory Finley MD Jun 05, 2017 16:51
[2017-06-05 20:00] VITALS: BP 136/74; PULSE 104; PULSE 105; RESP 18; TEMP 97.8; O2SAT 96
[2017-06-06] VITALS (8 sets, daily range): BP systolic 101–146; BP diastolic 57–79; PULSE 90–102; RESP 16–20; TEMP 97.6–98.4; O2SAT 92–98
[2017-06-06] MEDS: PIPERACIL-TAZO 3.375 GM PREMIX 50 ML IV SCH ×8 (01:29→20:00)
[2017-06-06] MEDS: oxyCODONE/ACETAMINOPHEN 5 MG/325 MG TAB PO PRN ×12 (01:29→22:45)
[2017-06-06] MEDS: RESP: ALBUTEROL 2.5 MG/IPRATROPIUM 0.5 MG NEB (SCH) NEB ×8 (03:32→20:47)
[2017-06-06] MEDS: SODIUM CHLORIDE 0.9% FLUSH 10 ML FLUSH IV FLUSH SCH ×4 (08:14→20:07)
[2017-06-06] MEDS: HEPARIN SODIUM - SQ 10,000 UNITS/ML VIAL SQ SCH ×4 (08:14→20:04)
--- NOTE | 2017-06-06 08:15 | MB ---
cc: JAZMINE WOODARD DATE OF CONSULTATION 06/05/[address] Felipe Saunders REASON FOR CONSULTATION Evaluation for pneumonia. HISTORY OF PRESENT ILLNESS Ms. Bah is a 71-year-old female with a history of nicotine use. She has cough with a small amount of sputum production and has no fever or chills. No night. Complains of fatigue. She was recently discharged from [facility] two days ago and she was discharged on antibiotics. She says that she did not get better and was getting worse as such she decided to come to [facility]. She had a workup done. She had a CT scan of the chest done which shows small anterolateral lower lobe breast infiltrate versus scarring. Her CBC showed a WBC count of 11.5, hemoglobin 13.3, hematocrit 39.7, MCV 90, platelet count 259. Sodium 140, potassium 4.05, chloride 108, CO2 24, BUN 14, creatinine 0.60. Her blood cultures so far are negative. PAST MEDICAL HISTORY Significant for a history of: 1. COPD 2. Eye surgery 3. Appendectomy 4. Osteoporosis MEDICATIONS She is currently takin. Oxycodone for pain. 5. Zosyn IV 6. Vancomycin IV 7. Albuterol nebulizer treatment. ALLERGIES She is allergic to CODEINE. SOCIAL HISTORY She has a history of smoking. No alcohol abuse. FAMILY HISTORY Noncontributory REVIEW OF SYSTEMS She has no weight loss, no hemoptysis. No DVT or pulmonary embolism. PHYSICAL EXAM This is a moderate well-nourished female not in acute distress. VITAL SIGNS: Blood pressure 128/77, heart rate 98, respirations 19, temperature 99.7, saturation 98% on room air. HEENT: Examination unremarkable. NECK: Supple. JVP not raised. CHEST: Equal bilaterally. No rhonchi. CARDIOVASCULAR: S1 and S2 normal. ABDOMEN: Benign. EXTREMITIES: No edema. IMPRESSION 1. COPD 2. Left lower lobe infiltrate likely resolving pneumonia. 3. Anxiety disorder 4. Nicotine use PLAN We will continue with antibiotics, check her cultures. She is stable on room air. Give her aerosol treatment. Advised strongly to quit smoking. Further treatment will depend on the course in the hospital. Thank you, Dr. Felipe Saunders, for this consultation. MD LEVAR Abreu/ANJEL /9:22 PM /8:05 AM
[2017-06-06] MEDS: ONDANSETRON HCL 4 MG/2 ML VIAL IVP PRN ×2 (10:17)
[2017-06-06] MEDS: VANCOMYCIN INJ 1,000 MG in SODIUM CHLOR 0.9% 250 ML INJ 250 ML IV SCH ×8 (10:21→22:39)
[2017-06-06] MEDS: REMOVE OLD PATCH T-DERMAL SCH ×2 (15:12)
[2017-06-06] MEDS: NICOTINE 14 MG/24 HR PATCH TOPICAL SCH ×2 (15:18)
--- NOTE | 2017-06-06 20:04 | HHI.PR ---
Subjective Remarks 62 YOWF with COPD PN, Anxiety Had Nausea, doea't sleep well No fever Objective Vital Signs Vital Signs Date Time Temp Pulse Resp B/P (MAP) Pulse Ox O2 Delivery O2 Flow Rate FiO2 06/06/17 16:00 98.4 102 20 146/75 (98) 96 06/06/17 08:00 97.6 95 20 123/72 (89) 95 06/06/17 04:21 98.1 102 18 103/57 (72) 95 06/06/17 00:00 98.2 96 18 141/79 (99) 92 I/O 06/05/17 06/05/17 06/05/17 06/06/17 06/06/17 06/06/17 07:00 15:00 23:00 07:00 15:00 23:00 Intake Total 880 ml 1420 ml 2010 ml 300 ml 370 ml 1000 ml Output Total 1000 ml 1200 ml Balance 880 ml 1420 ml 1010 ml 300 ml 370 ml -200 ml Intake Oral 580 ml 120 ml 960 ml 120 ml 1000 ml IV Total 300 ml 1300 ml 1050 ml 300 ml 250 ml Output Urine Total 1000 ml 1200 ml # Voids 3 2 # Bowel Movements 0 1 Result Diagram: 06/05/1762106/05/17621 Objective Remarks GENERAL: MBMN WF,NAD SKIN: Warm and dry. HEAD: Normocephalic. EYES: No scleral icterus. No injection or drainage. NECK: Supple, trachea midline. No JVD or lymphadenopathy. CARDIOVASCULAR: Regular rate and rhythm without murmurs, gallops, or rubs. RESPIRATORY: Breath sounds equal bilaterally. No accessory muscle use. GASTROINTESTINAL: Abdomen soft, non-tender, nondistended. MUSCULOSKELETAL: No cyanosis, or edema. BACK: Nontender without obvious deformity. No CVA tenderness. A/P Assessment and Plan LLL infilt COPD Anxiety Insomnia Nicotine use PLAN Cont Abx Check cultures Aerosol nebs Smoking cessation Jonah Wolff MD Jun 06, 2017 20:04
--- NOTE | 2017-06-06 22:46 | HHI.PR ---
Subjective Remarks "I'm doing the best I can " Patient still have severe wheezing Objective Vitals Vital Signs Date Time Temp Pulse Resp B/P (MAP) Pulse Ox O2 Delivery O2 Flow Rate FiO2 06/06/17 20:49 97 06/06/17 20:08 97.6 92 16 101/57 (72) 98 06/06/17 16:00 98.4 102 20 146/75 (98) 96 06/06/17 08:00 97.6 95 20 123/72 (89) 95 06/06/17 04:21 98.1 102 18 103/57 (72) 95 06/06/17 00:00 98.2 96 18 141/79 (99) 92 I/O 06/05/17 06/05/17 06/05/17 06/06/17 06/06/17 06/06/17 07:00 15:00 23:00 07:00 15:00 23:00 Intake Total 880 ml 1420 ml 2010 ml 300 ml 370 ml 1000 ml Output Total 1000 ml 1200 ml Balance 880 ml 1420 ml 1010 ml 300 ml 370 ml -200 ml Intake Oral 580 ml 120 ml 960 ml 120 ml 1000 ml IV Total 300 ml 1300 ml 1050 ml 300 ml 250 ml Output Urine Total 1000 ml 1200 ml # Voids 3 2 # Bowel Movements 0 1 Result Diagram: 06/05/1762106/05/17621 Objective Remarks GENERAL: This is a well-nourished, well-developed patient, in no apparent distress. SKIN: No rashes, warm and dry HEAD: Atraumatic. Normocephalic. EYES: Pupils equal round and reactive. . No scleral icterus. ENT: Nose without bleeding, or drainage, Airway patent. NECK: Trachea midline. Supple CARDIOVASCULAR: Regular rate and rhythm without murmurs, gallops, or rubs. RESPIRATORY: Bilateral crackles bibasilar with significant wheezing bilaterally GASTROINTESTINAL: Abdomen soft, non-tender, nondistended. Positive bowel sounds MUSCULOSKELETAL: Extremities without clubbing, cyanosis, or edema. Pedal pulses appreciated NEUROLOGICAL: Awake and alert. Moves all extremity. Normal speech.no focal neurological deficit A/P Problem List: (1) Left lower lobe pneumonia ICD Code: J18.1 - Lobar pneumonia, unspecified organism Status: Acute (2) Transaminitis ICD Code: R74.0 - Nonspecific elevation of levels of transaminase and lactic acid dehydrogenase [LDH] Assessment and Plan 71 y/o female with a history of osteoporosis and tobacco use presented to the ED with complaints of shortness of breath, cough, bone pain and fatigue. Patient states she has been having these symptoms constant for the last month. 06/05: WBC dropped to 11.5, ultrasound of the liver within normal limit, decrease ALT, follow LFT in a.m. 06/06 WBC dropped to 11.5, continue iv antibiotic, add Solu-Medrol 40 mg every 12 hours, continue current management monitor clinical improvement Sepsis, source Pneumonia, left lower lobe, failed outpatient Levaquin WBC 15.6, HR 111 Chest x ray reviewed and shows a small infiltrate at the left lung base -IV antibiotics Zosyn and Vancomycin -CT thorax/ Chest ordered -Appreciate pulmonary consult -Duoneb scheduled and PRN Transaminitis, ALT 111, Patient with RUQ tenderness -Liver US unremarkable -Hepatitis profile pending Tobacco use, chronic -Encouraged to quit DVT prophylaxis: Heparin Problem Qualifiers (1) Left lower lobe pneumonia: Qualified Codes: J18.1 - Lobar pneumonia, unspecified organism Ivory Finley MD Jun 06, 2017 22:46
[2017-06-06] MEDS: methylPREDNISolone SOD SUCC 40 MG/1 ML VIAL IV PUSH SCH ×2 (23:19)
[2017-06-07] MEDS: PIPERACIL-TAZO 3.375 GM PREMIX 50 ML IV SCH ×8 (02:39→20:18)
[2017-06-07] MEDS: RESP: ALBUTEROL 2.5 MG/IPRATROPIUM 0.5 MG NEB (SCH) NEB ×8 (03:45→20:50)
[2017-06-07] MEDS: oxyCODONE/ACETAMINOPHEN 5 MG/325 MG TAB PO PRN ×10 (03:48→23:50)
[2017-06-07 04:32] VITALS: BP 110/62; PULSE 99; RESP 16; TEMP 97.8; O2SAT 94
[2017-06-07 08:00] VITALS: BP 111/68; PULSE 94; RESP 19; TEMP 96.9; O2SAT 95
[2017-06-07] MEDS: HEPARIN SODIUM - SQ 10,000 UNITS/ML VIAL SQ SCH ×4 (08:35→20:20)
[2017-06-07] MEDS: methylPREDNISolone SOD SUCC 40 MG/1 ML VIAL IV PUSH SCH ×4 (08:36→20:19)
[2017-06-07] MEDS: NICOTINE 14 MG/24 HR PATCH TOPICAL SCH ×2 (08:37)
[2017-06-07] MEDS: SODIUM CHLORIDE 0.9% FLUSH 10 ML FLUSH IV FLUSH SCH ×4 (08:46→20:19)
[2017-06-07] MEDS: ONDANSETRON HCL 4 MG/2 ML VIAL IVP PRN ×2 (08:48)
[2017-06-07] MEDS: REMOVE OLD PATCH T-DERMAL SCH ×2 (09:00)
[2017-06-07] MEDS: VANCOMYCIN INJ 1,000 MG in SODIUM CHLOR 0.9% 250 ML INJ 250 ML IV SCH ×8 (11:34→23:51)
[2017-06-07 12:00] VITALS: BP_SYST 59; PULSE 102; RESP 19; TEMP 97.6; O2SAT 95
[2017-06-07 16:00] VITALS: BP 125/68; PULSE 105; RESP 20; TEMP 98.2; O2SAT 95
--- NOTE | 2017-06-07 17:55 | HHI.PR ---
Subjective Remarks Patient states breathing is much improved as per daughter patient could not sleep last night patient is also anxious Objective Vitals Vital Signs Date Time Temp Pulse Resp B/P (MAP) Pulse Ox O2 Delivery O2 Flow Rate FiO2 06/07/17 16:00 98.2 105 20 125/68 (87) 95 06/07/17 12:00 97.6 102 19 59/ 95 06/07/17 08:00 96.9 94 19 111/68 (82) 95 06/07/17 04:32 97.8 99 16 110/62 (78) 94 06/06/17 23:58 97.8 90 16 116/75 (89) 96 06/06/17 20:49 97 06/06/17 20:08 97.6 92 16 101/57 (72) 98 06/06/17 20:00 101 I/O 06/06/17 06/06/17 06/06/17 06/07/17 06/07/17 06/07/17 07:00 15:00 23:00 07:00 15:00 23:00 Intake Total 300 ml 370 ml 1050 ml 1080 ml 240 ml Output Total 1200 ml Balance 300 ml 370 ml -150 ml 1080 ml 240 ml Intake Oral 120 ml 1000 ml 780 ml 240 ml IV Total 300 ml 250 ml 50 ml 300 ml Output Urine Total 1200 ml # Voids 2 6 # Bowel Movements 1 Result Diagram: 06/05/1762106/05/17621 Imaging Last Impressions Chest X-Ray 06/04/17 1708 Signed Impressions: Service Date/Time: Sunday, June 04, 2017 17:13 - CONCLUSION: Small infiltrate at the left lung base. Tenzin Guerrero MD Liver Ultrasound 06/04/17 0000 Signed Impressions: Service Date/Time: Sunday, June 04, 2017 22:21 - CONCLUSION: Normal examination. Wade Samaniego MD Chest CT 06/04/17 0000 Signed Impressions: Service Date/Time: Sunday, June 04, 2017 21:44 - CONCLUSION: Small opacity anterolateral left lower lung; infiltrate versus scarring.. Tenzin Guerrero MD Objective Remarks AAOx3 nad Diffuse BL expiratory wheezing Medications and IVs Current Medications Medications (Trade) Dose Ordered Sig/Christopher Route Start Time Stop Time Status Last Admin (NS Flush) 2 ml UNSCH PRN IV FLUSH 06/04/17 21:15 (NS Flush) 2 ml BID IV FLUSH 06/05/17 09:00 06/07/17 20:19 (Zofran Inj) 4 mg Q6H PRN IVP 06/04/17 21:15 06/07/17 08:48 (Heparin Inj) 5,000 units Q12H SQ 06/04/17 21:15 06/07/17 20:20 (Narcan Inj) 0.4 mg UNSCH PRN IV PUSH 06/04/17 21:15 (Milk Of Magnesia Liq) 30 ml Q12H PRN PO 06/04/17 21:15 (Senokot) 17.2 mg Q12H PRN PO 06/04/17 21:15 (Dulcolax Supp) 10 mg DAILY PRN RECTAL 06/04/17 21:15 (Lactulose Liq) 30 ml DAILY PRN PO 06/04/17 21:15 Piperacillin Sod/ Tazobactam Sod 50 ml @ 100 mls/hr Q6H IV 06/05/17 02:00 06/07/17 20:18 Vancomycin HCl 1000 mg/Sodium Chloride 250 ml @ 250 mls/hr Q12H IV 06/04/17 22:00 06/07/17 11:34 (Duoneb Neb) 1 ampule Q6HR NEB NEB 06/04/17 22:00 06/07/17 20:50 (Percocet 5-325 Mg) 1 tab Q4H PRN PO 06/05/17 03:00 06/07/17 18:03 (Habitrol 14 Mg Patch.24 Hr) 1 patch DAILY TOPICAL 06/06/17 15:12 06/07/17 08:37 Miscellaneous Information 1 DAILY T-DERMAL 06/06/17 15:12 06/07/17 09:00 (SoluMEDROL INJ) 40 mg Q12HR IV PUSH 06/06/17 23:00 06/07/17 20:19 A/P Problem List: (1) Left lower lobe pneumonia ICD Code: J18.1 - Lobar pneumonia, unspecified organism Status: Acute (2) Transaminitis ICD Code: R74.0 - Nonspecific elevation of levels of transaminase and lactic acid dehydrogenase [LDH] Assessment and Plan 71 y/o female with a history of osteoporosis and tobacco use presented to the ED with complaints of shortness of breath, cough, bone pain and fatigue. Patient states she has been having these symptoms constant for the last month. 06/05: WBC dropped to 11.5, ultrasound of the liver within normal limit, decrease ALT, follow LFT in a.m. 06/06 WBC dropped to 11.5, continue iv antibiotic, add Solu-Medrol 40 mg every 12 hours, continue current management monitor clinical improvement Sepsis, source Pneumonia/copd exacerbation, left lower lobe, failed outpatient Levaquin WBC 15.6, HR 111 Chest x ray reviewed and shows a small infiltrate at the left lung base -IV antibiotics Zosyn and Vancomycin -CT thorax/ Chest ordered -Appreciate pulmonary consult -Duoneb scheduled and PRN 06/07 Continue IV Solumedrol, duonebs and pulmonary recommendations. Transaminitis, ALT 111, Patient with RUQ tenderness -Liver US unremarkable -Hepatitis C positive Tobacco use, chronic -Encouraged to quit DVT prophylaxis: Heparin Problem Qualifiers (1) Left lower lobe pneumonia: Qualified Codes: J18.1 - Lobar pneumonia, unspecified organism Dorian Hook MD Jun 07, 2017 17:54
--- NOTE | 2017-06-07 20:19 | HHI.PR ---
Subjective Remarks 62 YOWF with COPD PN, Anxiety Had Nausea, doea't sleep well No fever Anxious Ambulates Objective Vital Signs Vital Signs Date Time Temp Pulse Resp B/P (MAP) Pulse Ox O2 Delivery O2 Flow Rate FiO2 06/07/17 16:00 98.2 105 20 125/68 (87) 95 06/07/17 12:00 97.6 102 19 59/ 95 06/07/17 08:00 96.9 94 19 111/68 (82) 95 06/07/17 04:32 97.8 99 16 110/62 (78) 94 06/06/17 23:58 97.8 90 16 116/75 (89) 96 06/06/17 20:49 97 I/O 06/06/17 06/06/17 06/06/17 06/07/17 06/07/17 06/07/17 07:00 15:00 23:00 07:00 15:00 23:00 Intake Total 300 ml 370 ml 1050 ml 1080 ml 240 ml 1000 ml Output Total 1200 ml 800 ml Balance 300 ml 370 ml -150 ml 1080 ml 240 ml 200 ml Intake Oral 120 ml 1000 ml 780 ml 240 ml 1000 ml IV Total 300 ml 250 ml 50 ml 300 ml Output Urine Total 1200 ml 800 ml # Voids 2 6 # Bowel Movements 1 1 Result Diagram: 06/05/1762106/05/17621 Objective Remarks GENERAL: MBMN WF,NAD SKIN: Warm and dry. HEAD: Normocephalic. EYES: No scleral icterus. No injection or drainage. NECK: Supple, trachea midline. No JVD or lymphadenopathy. CARDIOVASCULAR: Regular rate and rhythm without murmurs, gallops, or rubs. RESPIRATORY: Breath sounds equal bilaterally. No accessory muscle use. GASTROINTESTINAL: Abdomen soft, non-tender, nondistended. MUSCULOSKELETAL: No cyanosis, or edema. BACK: Nontender without obvious deformity. No CVA tenderness. A/P Assessment and Plan LLL infilt COPD Anxiety Insomnia Nicotine use PLAN Cont Abx Check cultures Aerosol nebs Smoking cessation OOB and ambulate Jonah Wolff MD Jun 07, 2017 20:19
[2017-06-07 20:28] VITALS: BP 127/74; PULSE 101; RESP 17; TEMP 96.5; O2SAT 94
[2017-06-07 20:49] VITALS: PULSE 102
[2017-06-08] VITALS (9 sets, daily range): BP systolic 101–139; BP diastolic 55–81; PULSE 95–109; RESP 15–18; TEMP 96.2–98.9; O2SAT 94–98
[2017-06-08] MEDS: ONDANSETRON HCL 4 MG/2 ML VIAL IVP PRN ×4 (00:44→12:38)
[2017-06-08] MEDS: PIPERACIL-TAZO 3.375 GM PREMIX 50 ML IV SCH ×6 (02:48→12:45)
[2017-06-08] MEDS: RESP: ALBUTEROL 2.5 MG/IPRATROPIUM 0.5 MG NEB (SCH) NEB ×8 (03:19→20:01)
[2017-06-08] MEDS: oxyCODONE/ACETAMINOPHEN 5 MG/325 MG TAB PO PRN ×10 (04:49→22:56)
[2017-06-08] MEDS: NICOTINE 14 MG/24 HR PATCH TOPICAL SCH ×2 (08:40)
[2017-06-08] MEDS: REMOVE OLD PATCH T-DERMAL SCH ×2 (08:41)
[2017-06-08] MEDS: methylPREDNISolone SOD SUCC 40 MG/1 ML VIAL IV PUSH SCH ×2 (08:41)
[2017-06-08] MEDS: SODIUM CHLORIDE 0.9% FLUSH 10 ML FLUSH IV FLUSH SCH ×4 (08:41→21:39)
[2017-06-08] MEDS: VANCOMYCIN INJ 1,000 MG in SODIUM CHLOR 0.9% 250 ML INJ 250 ML IV SCH ×4 (08:42)
[2017-06-08] MEDS: HEPARIN SODIUM - SQ 10,000 UNITS/ML VIAL SQ SCH ×4 (08:42→21:46)
[2017-06-08 09:40] LABS: AUTOMATED NEUTROPHIL # 15.7 TH/MM3 (1.8-7.7); BASOPHIL # 0.1 TH/MM3 (0-0.2); BASOPHIL % 0.5 % (0.0-2.0); HEMATOCRIT 35.8 % (35.0-46.0); HEMOGLOBIN 11.8 GM/DL (11.6-15.3); LYMPH % 10.4 % (9.0-44.0); MEAN CELL VOLUME 91.8 FL (80.0-100.0); MEAN CORPUSCULAR HEMOGLOBIN 30.2 PG (27.0-34.0); MEAN CORPUSCULAR HGB CONC 32.9 % (32.0-36.0); MONO % 5.5 % (0.0-8.0); NEUT % 83.6 % (16.0-70.0); PLATELET COUNT 262 TH/MM3 (150-450); RED CELL DISTRIBUTION WIDTH 15.1 % (11.6-17.2); WHITE BLOOD COUNT 18.8 TH/MM3 (4.0-11.0)
[2017-06-08] MEDS ORDERED: ZOLPIDEM TARTRATE 5 MG TAB PO PRN ×2 (10:00)
[2017-06-08 11:06] LABS: ALBUMIN 2.9 GM/DL (3.4-5.0); ALT (GPT) 68 U/L (10-53); AST (GOT) 22 U/L (15-37); BICARBONATE 22.8 MEQ/L (21.0-32.0); BLOOD UREA NITROGEN 21 MG/DL (7-18); CALCIUM 9.3 MG/DL (8.5-10.1); CHLORIDE 107 MEQ/L (98-107); CREATININE 0.59 MG/DL (0.50-1.00); GLOMERULAR FILTRATION RATE 101 ML/MIN (>89); GLUCOSE,RANDOM 105 MG/DL (74-106); MAGNESIUM 2.6 MG/DL (1.5-2.5); PHOSPHORUS 3.2 MG/DL (2.5-4.9); SODIUM (NA) 141 MEQ/L (136-145)
[2017-06-08 11:08] LABS: ALKALINE PHOSPHATASE 71 U/L (45-117); TOTAL BILIRUBIN ADULT 0.1 MG/DL (0.2-1.0)
[2017-06-08] MEDS: ALPRAZolam 0.5 MG TAB PO PRN ×4 (12:49→22:56)
--- NOTE | 2017-06-08 18:30 | HHI.PR ---
Subjective Remarks late entry - patient seen at 9:30 am patient states breathing is much improved denies fevers or chills states she did not sleep much and that she is very anxious Objective Vitals Vital Signs Date Time Temp Pulse Resp B/P (MAP) Pulse Ox O2 Delivery O2 Flow Rate FiO2 06/08/17 16:00 96.9 95 16 126/74 (91) 95 06/08/17 11:43 97.2 100 18 139/76 (97) 94 06/08/17 11:40 95 21 06/08/17 08:00 96.2 97 15 101/81 (88) 96 06/08/17 05:07 96.3 109 17 134/74 (94) 98 06/08/17 00:09 97.6 98 18 138/76 (96) 96 06/07/17 20:49 102 06/07/17 20:28 96.5 101 17 127/74 (91) 94 I/O 06/07/17 06/07/17 06/07/17 06/08/17 06/08/17 06/08/17 07:00 15:00 23:00 07:00 15:00 23:00 Intake Total 1080 ml 240 ml 1000 ml 760 ml 350 ml Output Total 800 ml Balance 1080 ml 240 ml 200 ml 760 ml 350 ml Intake Oral 780 ml 240 ml 1000 ml 760 ml IV Total 300 ml 350 ml Output Urine Total 800 ml # Voids 6 6 # Bowel Movements 1 0 Result Diagram: 06/08/17 0807 06/08/17 0807 Imaging Last Impressions Chest X-Ray 06/04/17 1708 Signed Impressions: Service Date/Time: Sunday, June 04, 2017 17:13 - CONCLUSION: Small infiltrate at the left lung base. Tenzin Guerrero MD Liver Ultrasound 06/04/17 0000 Signed Impressions: Service Date/Time: Sunday, June 04, 2017 22:21 - CONCLUSION: Normal examination. Wade Samaniego MD Chest CT 06/04/17 0000 Signed Impressions: Service Date/Time: Sunday, June 04, 2017 21:44 - CONCLUSION: Small opacity anterolateral left lower lung; infiltrate versus scarring.. Tenzin Guerrero MD Objective Remarks AAOx3 nad Diffuse BL expiratory wheezing Procedures none Medications and IVs Current Medications Medications (Trade) Dose Ordered Sig/Christopher Route Start Time Stop Time Status Last Admin (NS Flush) 2 ml UNSCH PRN IV FLUSH 06/04/17 21:15 (NS Flush) 2 ml BID IV FLUSH 06/05/17 09:00 06/08/17 08:41 (Zofran Inj) 4 mg Q6H PRN IVP 06/04/17 21:15 06/08/17 12:38 (Heparin Inj) 5,000 units Q12H SQ 06/04/17 21:15 06/08/17 08:42 (Narcan Inj) 0.4 mg UNSCH PRN IV PUSH 06/04/17 21:15 (Milk Of Magnesia Liq) 30 ml Q12H PRN PO 06/04/17 21:15 (Senokot) 17.2 mg Q12H PRN PO 06/04/17 21:15 (Dulcolax Supp) 10 mg DAILY PRN RECTAL 06/04/17 21:15 (Lactulose Liq) 30 ml DAILY PRN PO 06/04/17 21:15 Piperacillin Sod/ Tazobactam Sod 50 ml @ 100 mls/hr Q6H IV 06/05/17 02:00 06/08/17 12:45 Vancomycin HCl 1000 mg/Sodium Chloride 250 ml @ 250 mls/hr Q12H IV 06/04/17 22:00 06/08/17 08:42 (Duoneb Neb) 1 ampule Q6HR NEB NEB 06/04/17 22:00 06/08/17 11:38 (Percocet 5-325 Mg) 1 tab Q4H PRN PO 06/05/17 03:00 06/08/17 12:39 (Habitrol 14 Mg Patch.24 Hr) 1 patch DAILY TOPICAL 06/06/17 15:12 06/08/17 08:40 Miscellaneous Information 1 DAILY T-DERMAL 06/06/17 15:12 06/08/17 08:41 (SoluMEDROL INJ) 40 mg Q12HR IV PUSH 06/06/17 23:00 06/08/17 08:41 (Xanax) 0.5 mg Q6H PRN PO 06/08/17 10:00 06/08/17 12:49 (Ambien) 5 mg HS PRN PO 06/08/17 10:00 Urinary Catheter: No Vascular Central Line Catheter: No A/P Problem List: (1) Left lower lobe pneumonia ICD Code: J18.1 - Lobar pneumonia, unspecified organism Status: Acute (2) Transaminitis ICD Code: R74.0 - Nonspecific elevation of levels of transaminase and lactic acid dehydrogenase [LDH] Status: Acute (3) Anxiety ICD Code: F41.9 - Anxiety disorder, unspecified Status: Acute (4) Insomnia ICD Code: G47.00 - Insomnia, unspecified Status: Acute (5) Hepatitis C antibody positive in blood ICD Code: R76.8 - Other specified abnormal immunological findings in serum Status: Acute (6) COPD with acute exacerbation ICD Code: J44.1 - Chronic obstructive pulmonary disease with (acute) exacerbation Assessment and Plan 71 y/o female with a history of osteoporosis and tobacco use presented to the ED with complaints of shortness of breath, cough, bone pain and fatigue. Patient states she has been having these symptoms constant for the last month. Sepsis, source Pneumonia/copd exacerbation, left lower lobe, failed outpatient Levaquin WBC 15.6, HR 111 Chest x ray reviewed and shows a small infiltrate at the left lung base -IV antibiotics Zosyn and Vancomycin -CT thorax/ Chest ordered - showed small opacity on anterolateral left lower lung: infiltrate vs scarring. -Appreciate pulmonary consult -Duoneb scheduled and PRN 06/07 Continue IV Solumedrol, duonebs and pulmonary recommendations. 06/08 DC Solumedrol and IV antibiotics. Cultures negative 4. Discussed the case with Dr. Wolff states the patient is cleared to go home in a.m. Transaminitis, ALT 111, Patient with RUQ tenderness -Liver US unremarkable -Hepatitis C positive --> follow-up as an outpatient. ALT trending down. Tobacco use, chronic -Encouraged to quit DVT prophylaxis: Heparin Discharge Planning Also will discharge in a.m. Problem Qualifiers (1) Left lower lobe pneumonia: Qualified Codes: J18.1 - Lobar pneumonia, unspecified organism Dorian Hook MD Jun 08, 2017 18:30
--- NOTE | 2017-06-08 19:54 | HHI.PR ---
Subjective Remarks 62 YOWF with COPD PN, Anxiety Had Nausea, doea't sleep well No fever Anxious Ambulates " I have HepC" Objective Vital Signs Vital Signs Date Time Temp Pulse Resp B/P (MAP) Pulse Ox O2 Delivery O2 Flow Rate FiO2 06/08/17 16:00 96.9 95 16 126/74 (91) 95 06/08/17 11:43 97.2 100 18 139/76 (97) 94 06/08/17 11:40 95 21 06/08/17 08:00 96.2 97 15 101/81 (88) 96 06/08/17 05:07 96.3 109 17 134/74 (94) 98 06/08/17 00:09 97.6 98 18 138/76 (96) 96 06/07/17 20:49 102 06/07/17 20:28 96.5 101 17 127/74 (91) 94 I/O 06/07/17 06/07/17 06/07/17 06/08/17 06/08/17 06/08/17 07:00 15:00 23:00 07:00 15:00 23:00 Intake Total 1080 ml 240 ml 1000 ml 760 ml 350 ml 480 ml Output Total 800 ml Balance 1080 ml 240 ml 200 ml 760 ml 350 ml 480 ml Intake Oral 780 ml 240 ml 1000 ml 760 ml 480 ml IV Total 300 ml 350 ml Output Urine Total 800 ml # Voids 6 6 4 # Bowel Movements 1 0 0 Result Diagram: 06/08/17 0807 06/08/17 0807 Objective Remarks GENERAL: MBMN WF,NAD SKIN: Warm and dry. HEAD: Normocephalic. EYES: No scleral icterus. No injection or drainage. NECK: Supple, trachea midline. No JVD or lymphadenopathy. CARDIOVASCULAR: Regular rate and rhythm without murmurs, gallops, or rubs. RESPIRATORY: Breath sounds equal bilaterally. No accessory muscle use. GASTROINTESTINAL: Abdomen soft, non-tender, nondistended. MUSCULOSKELETAL: No cyanosis, or edema. BACK: Nontender without obvious deformity. No CVA tenderness. A/P Assessment and Plan LLL infilt COPD Anxiety Insomnia Nicotine use PLAN Change to po Abx DC Solumedrol PO pred DC plans for home Check cultures Aerosol nebs Smoking cessation OOB and ambulate Jonah Wolff MD Jun 08, 2017 19:54
[2017-06-08] MEDS: predniSONE 20 MG TAB PO SCH ×2 (21:46)
[2017-06-09] MEDS: oxyCODONE/ACETAMINOPHEN 5 MG/325 MG TAB PO PRN ×8 (03:59→22:30)
[2017-06-09 04:08] VITALS: BP 138/78; PULSE 92; RESP 17; TEMP 96.6; O2SAT 97
[2017-06-09] MEDS: ALPRAZolam 0.5 MG TAB PO PRN ×2 (04:48)
[2017-06-09 08:00] VITALS: BP 136/69; PULSE 78; RESP 18; TEMP 96.6; O2SAT 95
[2017-06-09] MEDS: REMOVE OLD PATCH T-DERMAL SCH ×2 (09:00)
[2017-06-09] MEDS: NICOTINE 14 MG/24 HR PATCH TOPICAL SCH ×2 (09:07)
[2017-06-09] MEDS: predniSONE 20 MG TAB PO SCH ×4 (09:07→21:16)
[2017-06-09] MEDS: SODIUM CHLORIDE 0.9% FLUSH 10 ML FLUSH IV FLUSH SCH ×4 (09:07→21:16)
[2017-06-09] MEDS: LEVOFLOXACIN 750 MG TAB PO SCH ×2 (09:07)
[2017-06-09] MEDS: HEPARIN SODIUM - SQ 10,000 UNITS/ML VIAL SQ SCH ×4 (09:15→21:15)
--- NOTE | 2017-06-09 11:28 | HHI.PR ---
Subjective Remarks 62 YOWF with COPD PN, Anxiety Had Nausea, doea't sleep wel No fever Anxious, did't sleep well Ambulates Objective Vital Signs Vital Signs Date Time Temp Pulse Resp B/P (MAP) Pulse Ox O2 Delivery O2 Flow Rate FiO2 06/09/17 08:00 96.6 78 18 136/69 (91) 95 06/09/17 04:08 96.6 92 17 138/78 (98) 97 06/08/17 23:48 97.1 98 16 107/55 (72) 94 06/08/17 20:26 98.9 100 18 125/60 (81) 94 06/08/17 20:02 96 06/08/17 16:00 96.9 95 16 126/74 (91) 95 06/08/17 11:43 97.2 100 18 139/76 (97) 94 06/08/17 11:40 95 21 I/O 06/08/17 06/08/17 06/08/17 06/09/17 06/09/17 06/09/17 07:00 15:00 23:00 07:00 15:00 23:00 Intake Total 760 ml 350 ml 480 ml 780 ml Balance 760 ml 350 ml 480 ml 780 ml Intake Oral 760 ml 480 ml 780 ml IV Total 350 ml # Voids 6 4 5 # Bowel Movements 0 0 Result Diagram: 06/08/1780606/08/17 0807 Objective Remarks GENERAL: MBMN WF,NAD SKIN: Warm and dry. HEAD: Normocephalic. EYES: No scleral icterus. No injection or drainage. NECK: Supple, trachea midline. No JVD or lymphadenopathy. CARDIOVASCULAR: Regular rate and rhythm without murmurs, gallops, or rubs. RESPIRATORY: Breath sounds equal bilaterally. No accessory muscle use. GASTROINTESTINAL: Abdomen soft, non-tender, nondistended. MUSCULOSKELETAL: No cyanosis, or edema. BACK: Nontender without obvious deformity. No CVA tenderness. A/P Assessment and Plan LLL infilt COPD Anxiety Insomnia Nicotine use PLAN Change to po Abx PO pred Check cultures Aerosol nebs Smoking cessation OOB and ambulate DC plans underway Will FU in office Jonah Wolff MD Jun 09, 2017 11:28
[2017-06-09 12:00] VITALS: BP 143/90; PULSE 95; RESP 18; TEMP 97.8; O2SAT 94
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
[2017-06-09] MEDS ORDERED: PILL SPLITTER OTHER PRN ×2 (14:15)
[2017-06-09] MEDS: QUEtiapine FUMARATE 25 MG TAB PO SCH ×2 (14:30)
[2017-06-09 16:00] VITALS: BP 136/75; PULSE 101; RESP 19; TEMP 97; O2SAT 94
--- NOTE | 2017-06-09 18:03 | HHI.PR ---
Subjective Remarks The patient sleeping at the moment, patient has been complaining of inability to sleep, so I will not wake her up. Per RN, the patient has been having disorganized thought and flight of ideas. Otherwise the patient is afebrile with slight tachycardia and otherwise stable vital signs. Objective Vitals Vital Signs Date Time Temp Pulse Resp B/P (MAP) Pulse Ox O2 Delivery O2 Flow Rate FiO2 06/09/17 16:00 97.0 101 19 136/75 (95) 94 06/09/17 12:00 97.8 95 18 143/90 (107) 94 06/09/17 08:00 96.6 78 18 136/69 (91) 95 06/09/17 04:08 96.6 92 17 138/78 (98) 97 06/08/17 23:48 97.1 98 16 107/55 (72) 94 06/08/17 20:26 98.9 100 18 125/60 (81) 94 06/08/17 20:02 96 I/O 06/08/17 06/08/17 06/08/17 06/09/17 06/09/17 06/09/17 07:00 15:00 23:00 07:00 15:00 23:00 Intake Total 760 ml 350 ml 480 ml 780 ml 975 ml Balance 760 ml 350 ml 480 ml 780 ml 975 ml Intake Oral 760 ml 480 ml 780 ml 975 ml IV Total 350 ml # Voids 6 4 5 9 # Bowel Movements 0 0 0 Result Diagram: 06/08/17 0807 06/08/17 0807 Imaging Last Impressions Chest X-Ray 06/04/17 1708 Signed Impressions: Service Date/Time: Sunday, June 04, 2017 17:13 - CONCLUSION: Small infiltrate at the left lung base. Tenzin Guerrero MD Liver Ultrasound 06/04/17 0000 Signed Impressions: Service Date/Time: Sunday, June 04, 2017 22:21 - CONCLUSION: Normal examination. Wade Samaniego MD Chest CT 06/04/17 0000 Signed Impressions: Service Date/Time: Sunday, June 04, 2017 21:44 - CONCLUSION: Small opacity anterolateral left lower lung; infiltrate versus scarring.. Tenzin Guerrero MD Objective Remarks AAOx3 nad Mild diffuse bilateral expiratory wheezing much improved from previous days. Procedures none Medications and IVs Current Medications Medications (Trade) Dose Ordered Sig/Chirstopher Route Start Time Stop Time Status Last Admin (NS Flush) 2 ml UNSCH PRN IV FLUSH 06/04/17 21:15 (NS Flush) 2 ml BID IV FLUSH 06/05/17 09:00 06/09/17 09:07 (Zofran Inj) 4 mg Q6H PRN IVP 06/04/17 21:15 06/08/17 12:38 (Heparin Inj) 5,000 units Q12H SQ 06/04/17 21:15 06/09/17 09:15 (Narcan Inj) 0.4 mg UNSCH PRN IV PUSH 06/04/17 21:15 (Milk Of Magnesia Liq) 30 ml Q12H PRN PO 06/04/17 21:15 (Senokot) 17.2 mg Q12H PRN PO 06/04/17 21:15 (Dulcolax Supp) 10 mg DAILY PRN RECTAL 06/04/17 21:15 (Lactulose Liq) 30 ml DAILY PRN PO 06/04/17 21:15 (Percocet 5-325 Mg) 1 tab Q4H PRN PO 06/05/17 03:00 06/09/17 12:35 (Habitrol 14 Mg Patch.24 Hr) 1 patch DAILY TOPICAL 06/06/17 15:12 06/09/17 09:07 Miscellaneous Information 1 DAILY T-DERMAL 06/06/17 15:12 06/09/17 09:00 (Xanax) 0.5 mg Q6H PRN PO 06/08/17 10:00 06/09/17 04:48 (Ambien) 5 mg HS PRN PO 06/08/17 10:00 06/08/17 22:56 (Deltasone) 20 mg BID PO 06/08/17 21:00 06/09/17 09:07 (Levaquin) 750 mg DAILY PO 06/09/17 09:00 06/09/17 09:07 (SEROquel) 12.5 mg DAILY PO 06/09/17 14:00 06/09/17 14:30 (SEROquel) 50 mg HS PO 06/09/17 21:00 (Pill Splitter) 1 ea UNSCH PRN OTHER 06/09/17 14:15 A/P Problem List: (1) Left lower lobe pneumonia ICD Code: J18.1 - Lobar pneumonia, unspecified organism Status: Acute (2) Transaminitis ICD Code: R74.0 - Nonspecific elevation of levels of transaminase and lactic acid dehydrogenase [LDH] Status: Acute (3) Anxiety ICD Code: F41.9 - Anxiety disorder, unspecified Status: Acute (4) Insomnia ICD Code: G47.00 - Insomnia, unspecified Status: Acute (5) Hepatitis C antibody positive in blood ICD Code: R76.8 - Other specified abnormal immunological findings in serum Status: Acute (6) COPD with acute exacerbation ICD Code: J44.1 - Chronic obstructive pulmonary disease with (acute) exacerbation Assessment and Plan 71 y/o female with a history of osteoporosis and tobacco use presented to the ED with complaints of shortness of breath, cough, bone pain and fatigue. Patient states she has been having these symptoms constant for the last month. Sepsis, source Pneumonia/copd exacerbation, left lower lobe, failed outpatient Levaquin WBC 15.6, HR 111 Chest x ray reviewed and shows a small infiltrate at the left lung base -IV antibiotics Zosyn and Vancomycin -CT thorax/ Chest ordered - showed small opacity on anterolateral left lower lung: infiltrate vs scarring. -Appreciate pulmonary consult -Duoneb scheduled and PRN 06/07 Continue IV Solumedrol, duonebs and pulmonary recommendations. 06/08 DC Solumedrol and IV antibiotics. Cultures negative 4. Discussed the case with Dr. Wolff states the patient is cleared to go home in a.m. 06/09 continue to taper prednisone. Transaminitis, ALT 111, Patient with RUQ tenderness -Liver US unremarkable -Hepatitis C positive --> follow-up as an outpatient. ALT trending down. Tobacco use, chronic -Encouraged to quit Psychosis Patient with disorganized thought, flight of ideas. Psychiatry consulted and recommendations appreciated. Continue Xanax 0.5 mg by mouth 3 times a day. Seroquel started at 12.5 mg in a.m. and 50 minutes at bedtime to help with psychosis and with sleep at night. Seroquel needs to be titrated up as needed carefully since it can give liver enzymes elevation. As per psychiatry patient may be a candidate for involuntary psychiatric admission if psychosis persist beyond medical clearance. DVT prophylaxis: Heparin Discharge Planning Discharge pending improvement of psychosis. Problem Qualifiers (1) Left lower lobe pneumonia: Qualified Codes: J18.1 - Lobar pneumonia, unspecified organism Dorian Hook MD Jun 09, 2017 18:02
[2017-06-09 20:00] VITALS: BP 160/80; PULSE 68; PULSE 74; RESP 17; TEMP 96; O2SAT 97
[2017-06-09] MEDS ORDERED: QUEtiapine FUMARATE 25 MG TAB PO SCH ×2 (21:00)
[2017-06-10] VITALS: BP 138/72; PULSE 70; RESP 17; TEMP 96.2; O2SAT 97
[2017-06-10] MEDS: oxyCODONE/ACETAMINOPHEN 5 MG/325 MG TAB PO PRN ×8 (03:07→20:42)
[2017-06-10 04:00] VITALS: BP 130/70; PULSE 74; RESP 17; TEMP 97; O2SAT 97
[2017-06-10 08:00] VITALS: BP 154/99; PULSE 88; RESP 19; TEMP 97.5; O2SAT 95
[2017-06-10 09:00] VITALS: PULSE 96
[2017-06-10] MEDS: NICOTINE 14 MG/24 HR PATCH TOPICAL SCH ×2 (09:00)
[2017-06-10] MEDS: QUEtiapine FUMARATE 25 MG TAB PO SCH ×2 (09:00)
[2017-06-10] MEDS: REMOVE OLD PATCH T-DERMAL SCH ×2 (09:00)
[2017-06-10] MEDS: predniSONE 20 MG TAB PO SCH ×2 (09:12)
[2017-06-10] MEDS: LEVOFLOXACIN 750 MG TAB PO SCH ×2 (09:12)
[2017-06-10] MEDS: SODIUM CHLORIDE 0.9% FLUSH 10 ML FLUSH IV FLUSH SCH ×4 (09:12→20:43)
[2017-06-10] MEDS: HEPARIN SODIUM - SQ 10,000 UNITS/ML VIAL SQ SCH ×4 (09:15→20:41)
[2017-06-10 12:00] VITALS: BP 136/70; PULSE 103; RESP 20; TEMP 96.9; O2SAT 96
--- NOTE | 2017-06-10 15:15 | HHI.PR ---
Subjective Remarks Patient seen later at 6:40 PM. The patient is very upset and trying to find out who prescribed Seroquel. States that she was very sleepy and even urinated on her clothes. She states that she was not able to wake up the entire day. Patient seems to be awake and alert and does not seem to be having flight of ideas Denies chest pain, shortness of breath Denies fevers or chills Objective Vitals Vital Signs Date Time Temp Pulse Resp B/P (MAP) Pulse Ox O2 Delivery O2 Flow Rate FiO2 06/10/17 12:00 96.9 103 20 136/70 (92) 96 06/10/17 09:00 96 06/10/17 08:00 97.5 88 19 154/99 (117) 95 06/10/17 07:16 20 06/10/17 04:00 97.0 74 17 130/70 (90) 97 06/10/17 00:00 96.2 70 17 138/72 (94) 97 06/09/17 20:00 68 06/09/17 20:00 96.0 74 17 160/80 (106) 97 06/09/17 16:00 97.0 101 19 136/75 (95) 94 I/O 06/09/17 06/09/17 06/09/17 06/10/17 06/10/17 06/10/17 07:00 15:00 23:00 07:00 15:00 23:00 Intake Total 780 ml 975 ml 240 ml 240 ml Balance 780 ml 975 ml 240 ml 240 ml Intake Oral 780 ml 975 ml 240 ml 240 ml # Voids 5 9 3 # Bowel Movements 0 Result Diagram: 06/08/17 0807 06/08/17 0807 Imaging Last Impressions Chest X-Ray 06/04/17 1708 Signed Impressions: Service Date/Time: Sunday, June 04, 2017 17:13 - CONCLUSION: Small infiltrate at the left lung base. Tenzin Guerrero MD Liver Ultrasound 06/04/17 0000 Signed Impressions: Service Date/Time: Sunday, June 04, 2017 22:21 - CONCLUSION: Normal examination. Wade Samaniego MD Chest CT 06/04/17 0000 Signed Impressions: Service Date/Time: Sunday, June 04, 2017 21:44 - CONCLUSION: Small opacity anterolateral left lower lung; infiltrate versus scarring.. Tenzin Guerrero MD Objective Remarks AAOx3 nad Mild diffuse bilateral expiratory wheezing much improved from previous days. Procedures none Medications and IVs Current Medications Medications (Trade) Dose Ordered Sig/Christopher Route Start Time Stop Time Status Last Admin (NS Flush) 2 ml UNSCH PRN IV FLUSH 06/04/17 21:15 (NS Flush) 2 ml BID IV FLUSH 06/05/17 09:00 06/10/17 09:12 (Zofran Inj) 4 mg Q6H PRN IVP 06/04/17 21:15 06/08/17 12:38 (Heparin Inj) 5,000 units Q12H SQ 06/04/17 21:15 06/10/17 09:15 (Narcan Inj) 0.4 mg UNSCH PRN IV PUSH 06/04/17 21:15 (Milk Of Magnesia Liq) 30 ml Q12H PRN PO 06/04/17 21:15 (Senokot) 17.2 mg Q12H PRN PO 06/04/17 21:15 (Dulcolax Supp) 10 mg DAILY PRN RECTAL 06/04/17 21:15 (Lactulose Liq) 30 ml DAILY PRN PO 06/04/17 21:15 (Percocet 5-325 Mg) 1 tab Q4H PRN PO 06/05/17 03:00 06/10/17 15:28 (Habitrol 14 Mg Patch.24 Hr) 1 patch DAILY TOPICAL 06/06/17 15:12 06/09/17 09:07 Miscellaneous Information 1 DAILY T-DERMAL 06/06/17 15:12 06/09/17 09:00 (Xanax) 0.5 mg Q6H PRN PO 06/08/17 10:00 06/09/17 04:48 (Ambien) 5 mg HS PRN PO 06/08/17 10:00 06/08/17 22:56 (Deltasone) 20 mg BID PO 06/08/17 21:00 06/10/17 09:12 (Levaquin) 750 mg DAILY PO 06/09/17 09:00 06/10/17 09:12 (SEROquel) 12.5 mg DAILY PO 06/09/17 14:00 06/09/17 14:30 (SEROquel) 50 mg HS PO 06/09/17 21:00 06/09/17 21:15 (Pill Splitter) 1 ea UNSCH PRN OTHER 06/09/17 14:15 A/P Problem List: (1) Left lower lobe pneumonia ICD Code: J18.1 - Lobar pneumonia, unspecified organism Status: Acute (2) Transaminitis ICD Code: R74.0 - Nonspecific elevation of levels of transaminase and lactic acid dehydrogenase [LDH] Status: Acute (3) Anxiety ICD Code: F41.9 - Anxiety disorder, unspecified Status: Acute (4) Insomnia ICD Code: G47.00 - Insomnia, unspecified Status: Acute (5) Hepatitis C antibody positive in blood ICD Code: R76.8 - Other specified abnormal immunological findings in serum Status: Acute (6) COPD with acute exacerbation ICD Code: J44.1 - Chronic obstructive pulmonary disease with (acute) exacerbation Assessment and Plan 71 y/o female with a history of osteoporosis and tobacco use presented to the ED with complaints of shortness of breath, cough, bone pain and fatigue. Patient states she has been having these symptoms constant for the last month. Sepsis, source Pneumonia/copd exacerbation, left lower lobe, failed outpatient Levaquin WBC 15.6, HR 111 Chest x ray reviewed and shows a small infiltrate at the left lung base -IV antibiotics Zosyn and Vancomycin -CT thorax/ Chest ordered - showed small opacity on anterolateral left lower lung: infiltrate vs scarring. -Appreciate pulmonary consult -Duoneb scheduled and PRN 06/07 Continue IV Solumedrol, duonebs and pulmonary recommendations. 06/08 DC Solumedrol and IV antibiotics. Cultures negative 4. Discussed the case with Dr. Wolff states the patient is cleared to go home in a.m. 06/10 continue to taper prednisone- we'll decrease to 20 mg by mouth daily. Transaminitis, ALT 111, Patient with RUQ tenderness -Liver US unremarkable -Hepatitis C positive --> follow-up as an outpatient. ALT trending down. Tobacco use, chronic -Encouraged to quit Psychosis Patient with disorganized thought, flight of ideas. Psychiatry consulted and recommendations appreciated. Continue Xanax 0.5 mg by mouth 3 times a day. Seroquel started at 12.5 mg in a.m. and 50 minutes at bedtime to help with psychosis and with sleep at night. Seroquel needs to be titrated up as needed carefully since it can give liver enzymes elevation. As per psychiatry patient may be a candidate for involuntary psychiatric admission if psychosis persist beyond medical clearance. 06/10 on my assessment today, the patient is fully awake, alert and oriented 3, able to sustain normal conversation, flight of ideas or hallucinations or delusions are not exhibited. The patient states that she does not want to be on Seroquel as it makes her too sleepy. I will discontinue Seroquel but instead will place her on temazepam for insomnia and night. We'll continue Xanax as needed. DVT prophylaxis: Heparin Discharge Planning Possible discharge in a.m. if patient remains stable without psychosis. Problem Qualifiers (1) Left lower lobe pneumonia: Qualified Codes: J18.1 - Lobar pneumonia, unspecified organism Dorian Hook MD Jun 10, 2017 15:15
[2017-06-10 20:00] VITALS: BP 144/78; PULSE 91; PULSE 96; RESP 17; TEMP 97.6; O2SAT 95
[2017-06-10] MEDS: ALPRAZolam 0.5 MG TAB PO PRN ×2 (20:42)
[2017-06-11] VITALS: BP 143/85; PULSE 80; RESP 17; TEMP 96; O2SAT 98
[2017-06-11] MEDS: oxyCODONE/ACETAMINOPHEN 5 MG/325 MG TAB PO PRN ×6 (01:24→11:18)
[2017-06-11 04:00] VITALS: BP 147/80; PULSE 81; RESP 17; TEMP 96; O2SAT 97
[2017-06-11 07:56] VITALS: BP 136/82; PULSE 75; RESP 18; TEMP 97.7; O2SAT 96
[2017-06-11 08:00] VITALS: PULSE 104
[2017-06-11] MEDS: LEVOFLOXACIN 750 MG TAB PO SCH ×2 (08:10)
[2017-06-11] MEDS: REMOVE OLD PATCH T-DERMAL SCH ×2 (08:11)
[2017-06-11] MEDS: NICOTINE 14 MG/24 HR PATCH TOPICAL SCH ×2 (08:12)
[2017-06-11] MEDS: SODIUM CHLORIDE 0.9% FLUSH 10 ML FLUSH IV FLUSH SCH ×2 (08:12)
[2017-06-11] MEDS ORDERED: predniSONE 20 MG TAB PO SCH ×2 (09:00)
[2017-06-11] MEDS: HEPARIN SODIUM - SQ 10,000 UNITS/ML VIAL SQ SCH ×2 (09:02)
[2017-06-11] MEDS ORDERED: FAMO1TAB37 PO ×2 (11:43)
[2017-06-11] MEDS ORDERED: ALPR.5 PO ×2 (11:43)
[2017-06-11] MEDS ORDERED: PRED10 PO ×2 (11:43)
--- NOTE | 2017-06-11 11:45 | HHI.DCPOC ---
Discharge Care Plan Diagnosis: (1) COPD exacerbation (2) Unspecified psychosis (3) Hepatitis C antibody positive in blood (4) COPD with acute exacerbation (5) Transaminitis (6) Anxiety (7) Insomnia (8) Left lower lobe pneumonia Goals to Promote Your Health * To prevent worsening of your condition and complications * To maintain your health at the optimal level Directions to Meet Your Goals Take your medications as prescribed Follow your dietary instruction Follow activity as directed Keep your appointments as scheduled Take your immunizations and boosters as scheduled If your symptoms worsen call your PCP, if no PCP go to Urgent Care Center or Emergency Room Smoking is Dangerous to Your Health. Avoid second hand smoke Call the 24-hour hour crisis hotline for domestic abuse at Dorian Hook MD Jun 11, 2017 11:45
--- NOTE | 2017-06-11 11:45 | HHI.DCPOC ---
Discharge Care Plan Diagnosis: (1) COPD exacerbation (2) Unspecified psychosis (3) Hepatitis C antibody positive in blood (4) COPD with acute exacerbation (5) Transaminitis (6) Anxiety (7) Insomnia (8) Left lower lobe pneumonia Goals to Promote Your Health * To prevent worsening of your condition and complications * To maintain your health at the optimal level Directions to Meet Your Goals Take your medications as prescribed Follow your dietary instruction Follow activity as directed Keep your appointments as scheduled Take your immunizations and boosters as scheduled If your symptoms worsen call your PCP, if no PCP go to Urgent Care Center or Emergency Room Smoking is Dangerous to Your Health. Avoid second hand smoke Call the 24-hour hour crisis hotline for domestic abuse at Dorian Hook MD Jun 11, 2017 11:45
--- NOTE | 2017-06-11 11:45 | HHI.DCPOC ---
Discharge Care Plan Diagnosis: (1) COPD exacerbation (2) Unspecified psychosis (3) Hepatitis C antibody positive in blood (4) COPD with acute exacerbation (5) Transaminitis (6) Anxiety (7) Insomnia (8) Left lower lobe pneumonia Goals to Promote Your Health * To prevent worsening of your condition and complications * To maintain your health at the optimal level Directions to Meet Your Goals Take your medications as prescribed Follow your dietary instruction Follow activity as directed Keep your appointments as scheduled Take your immunizations and boosters as scheduled If your symptoms worsen call your PCP, if no PCP go to Urgent Care Center or Emergency Room Smoking is Dangerous to Your Health. Avoid second hand smoke Call the 24-hour hour crisis hotline for domestic abuse at Dorian Hook MD Jun 11, 2017 11:45
--- NOTE | 2017-06-11 11:51 | HHI.DS ---
Discharge Summary Admission Date Jun 04, 2017 at 21:12 Discharge Date: Jun 11, 2017 Admitting Diagnosis Pneumonia (1) Sepsis ICD Code: A41.9 - Sepsis, unspecified organism Diagnosis: Principal Status: Resolved (2) Left lower lobe pneumonia ICD Code: J18.1 - Lobar pneumonia, unspecified organism Diagnosis: Principal Status: Acute (3) Transaminitis ICD Code: R74.0 - Nonspecific elevation of levels of transaminase and lactic acid dehydrogenase [LDH] Diagnosis: Principal Status: Acute (4) Anxiety ICD Code: F41.9 - Anxiety disorder, unspecified Diagnosis: Principal Status: Acute (5) Insomnia ICD Code: G47.00 - Insomnia, unspecified Diagnosis: Principal Status: Acute (6) Hepatitis C antibody positive in blood ICD Code: R76.8 - Other specified abnormal immunological findings in serum Diagnosis: Principal Status: Acute (7) COPD with acute exacerbation ICD Code: J44.1 - Chronic obstructive pulmonary disease with (acute) exacerbation Diagnosis: Principal Status: Resolved (8) Unspecified psychosis ICD Code: F29 - Unspecified psychosis not due to a substance or known physiological condition Diagnosis: Principal Status: Resolved Procedures none Brief History - From Admission Written by CARLOS Ying acting as scribe for Dr. Christie] on 06/04/17 at 21:25. 71 y/o female with a history of osteoporosis and tobacco use presented to the ED with complaints of shortness of breath, cough, bone pain and fatigue. Patient states she has been having these symptoms constant for the last month. She has been treated with Levaquin 10 days ago by her PCP, and 7 days ago she was seen at her PCP office where she felt light headed and had a syncopal episode. She was admitted to [facility] but nothing was discovered and she states she was still sick when discharged. She is complaining of right lower dull pain to her lateral chest with radiation to her back, with associated fever (unknown temp at home) chills, and non productive cough. She states she has had a loss of appetite with right upper quadrant tenderness and a 7-8 LB weight loss in the last month. CBC/BMP: 06/08/17 0807 06/08/17 0807 Imaging Last Impressions Chest X-Ray 06/04/17 1708 Signed Impressions: Service Date/Time: Sunday, June 04, 2017 17:13 - CONCLUSION: Small infiltrate at the left lung base. Tenzin Guerrero MD Liver Ultrasound 06/04/17 0000 Signed Impressions: Service Date/Time: Sunday, June 04, 2017 22:21 - CONCLUSION: Normal examination. Wade Samaniego MD Chest CT 06/04/17 0000 Signed Impressions: Service Date/Time: Sunday, June 04, 2017 21:44 - CONCLUSION: Small opacity anterolateral left lower lung; infiltrate versus scarring.. Tenzin Guerrero MD PE at Discharge AAOx3 nad Mild diffuse bilateral expiratory wheezing much improved from previous days. Pt update on day of discharge The patient denies any chest pain or shortness of breath. Patient states that she still feels a little anxious, however was able to sleep. The patient denies any fevers or chills and states she is anxious to go home. As per RN report the patient hasn't had any flight of ideas or delusions today. Patient cleared to be discharged. Hospital Course The patient was found to have sepsis secondary to COPD exacerbation and pneumonia in the left lower lobe which failed outpatient Levaquin therapy. Sepsis was present on admission with a WBC of 15.6 and heart rate of 111. Chest x-ray showed small infiltrate at the left lung base. The patient initially treated with IV vancomycin and IV Zosyn. CT of the chest ordered which showed a small opacity on anterolateral left lower lung. Pulmonary consulted. Patient also treated with duo nebs scheduled and as needed, supplemental oxygen as well as IV steroids in the form of Solu-Medrol which was tapered down to prednisone. The patient was also advised smoking cessation. Patient was also noted to have some transaminitis with an elevated AST of 111 and right upper quadrant tenderness. Liver ultrasound was unremarkable, however hepatitis profile was positive for an antibody to hepatitis C. The transaminases trended down during hospital stay and the patient was advised to follow-up as an outpatient with gastroenterology for further workup and potential treatment. And the patient hospital stay the patient was noted to have some disorganized thoughts and flight of ideas. Psychiatry was consulted. Recommended continuation of previous started Xanax 0.5 mg by mouth 3 times a day and start the patient on Seroquel 50 mg at bedtime and 12.5 during daytime to help with psychosis. The patient also was complaining of some insomnia for approximately 5 days of very short moments of sleep. On 06/10 after the patient slept for almost entire day she was fully awake alert oriented 3 and able to sustain a normal conversation. There was no evidence of any further flight of ideas or delusions. Patient stated she did not wish to keep taking Seroquel. Patient will be discharged on Xanax as needed for anxiety. Pt Condition on Discharge: Stable Discharge Disposition: Discharge Home Discharge Time: <= 30 minutes Discharge Instructions DIET: Follow Instructions for: As Tolerated, No Restrictions Activities you can perform: Regular-No Restrictions Activities to Avoid: Prolonged Standing, Strenuous Activity Follow up Referrals: Gastroenterology - 2 Weeks with Estephania De Souza MD PCP Follow-up - 1 Week Pulmonology - 2 Weeks New Medications: Famotidine (Pepcid) 20 Mg Tab 10 MG PO BID for GI protection, #60 TAB 0 Refills Prednisone (Prednisone) 10 Mg Tab 10 MG PO DAILY for Shortness of Breath, #5 TAB 0 Refills Alprazolam (Xanax) 0.5 Mg Tab 0.5 MG PO Q6H PRN for MODERATE TO SEVERE ANXIETY, #30 TAB Continued Medications: Oxycodone-Acetaminophen (Percocet) 10-325 mg Tab 1 TAB PO Q6H PRN for PAIN, TAB 0 Refills Dorian Hook MD Jun 11, 2017 11:51
[2017-06-11 12:00] VITALS: BP 141/75; PULSE 102; RESP 16; TEMP 97.4; O2SAT 95
[2017-06-11 12:18] VITALS: RESP 18
== END 2017-06-11 14:01 | disposition home or self-care (01) | DRG 871 ==
LOC: NEPE 16:24 → NEDA 21:12 → N07B 22:06
PROVIDERS: ADMIT Hospitalist; ATTEND Hospitalist
DX: A41.9 Sepsis, unspecified organism (principal); J18.1 Lobar pneumonia, unspecified organism; J44.0 Chronic obstructive pulmonary disease with (acute) lower respiratory infection; J44.1 Chronic obstructive pulmonary disease with (acute) exacerbation; F17.210 Nicotine dependence, cigarettes, uncomplicated; I45.10 Unspecified right bundle-branch block; M79.1 Myalgia; G47.00 Insomnia, unspecified; Z85.820 Personal history of malignant melanoma of skin; M81.0 Age-related osteoporosis without current pathological fracture; R74.0 Nonspecific elevation of levels of transaminase and lactic acid dehydrogenase [LDH]; B19.20 Unspecified viral hepatitis C without hepatic coma; F29 Unspecified psychosis not due to a substance or known physiological condition
CPT/HCPCS: 71010; 71250; 76705; 76937; 80053; 80074; 82550; 83605; 83735; 83880; 84100; 84484; 85007; 85025; 85027; 85379; 85610; 85730; 87040; 93005; 94640; 94664; 96361; 96365; 96366; 96368; J0456; J1644; J2405; J2543; J2920; J3370; J7030; J7040; J7050; J7512

== ENCOUNTER 2017-08-20 15:43 | Emergency (ER) | payer OTHER, MEDICAID ==
[~2017-08-20] VITALS: Ht 162.6 cm; Wt 60.0 kg
[~2017-08-20 15:43] MED LIST changes: -ALBU1AER INH; +ALPR.5 PO; +FAMO1TAB37 PO; +PERC10TA27 PO; +PRED10 PO; -TRAM50 PO; -XANA1TAB6 PO
[2017-08-20 15:45] VITALS: BP 153/86; PULSE 115; RESP 22; TEMP 98; O2SAT 95
--- NOTE | 2017-08-20 16:30 | PD ---
Physical Exam Time Seen by Provider: 16:27 Narrative 71yo F c/o chest tightness, SOB, wheezing, cough since Jul 23. Subjective fevers. Has taken 2 z-paks and levofloxacin with no improvement. Has been using inhaler with no relief; has not been using very often. Denies hx asthma, COPD. Patient seen in triage. VS reviewed. Awaiting bed placement. See next providers note for final patient disposition. Data Data Last Documented VS Vital Signs Date Time Temp Pulse Resp B/P (MAP) Pulse Ox O2 Delivery O2 Flow Rate FiO2 08/20/17 15:45 98.0 115 22 153/86 (108) 95 MDM Supervised Visit with COBY: Carlee Louis Aug 20, 2017 16:30
--- NOTE | 2017-08-20 17:16 | RADRPT ---
EXAM DATE/TIME: 08/20/2017 16:57 [facility] COMPARISON: CHEST SINGLE AP, June 04, 2017, 17:13. INDICATIONS : Cough and shortness of breath. MEDICAL HISTORY : Chronic obstructive pulmonary disease. Arthritis. Melanoma. SURGICAL HISTORY : Appendectomy. Hysterectomy. ENCOUNTER: Initial ACUITY: 1 month PAIN SCORE: 5/10 LOCATION: Bilateral chest FINDINGS: A single view of the chest demonstrates the lungs to be symmetrically aerated without evidence of mas s, infiltrate or effusion. The cardiomediastinal contours are unremarkable. Osseous structures are intact. CONCLUSION: No acute disease. There is no evidence of pneumonia. Laureano Nahtan MD on August 20, 2017 at 17:13 Board Certified Radiologist. This report was verified electronically.
[2017-08-20] MEDS ORDERED: PERC10TA27 PO (17:22)
[2017-08-20] MEDS ORDERED: PRED20 PO (17:40)
[2017-08-20] MEDS ORDERED: ALBU6.7H INH (17:40)
[2017-08-20] MEDS ORDERED: OSEL75 PO (17:40)
--- NOTE | 2017-08-20 17:41 | PD ---
HPI Chief Complaint: Cold / Flu Symptoms Time Seen by Provider: 17:34 Travel History International Travel<30 days: No Contact w/Intl Traveler<30days: No Traveled to known affect area: No History of Present Illness HPI 71-year-old female complains of chest tightness along with some wheezing and a cough for about a month. He also describes shortness of breath. No fever is reported. The patient has tried Z-Tc twice patient's tried Levaquin. Patient smokes and the at home nebulizer treatments have been of no significant benefit. No hemoptysis. Severity moderate. PFSH Past Medical History Arthritis: Yes (osteoporosis) Anxiety: Yes Depression: No Cancer: Yes (MELENOMA) Cardiovascular Problems: No COPD: Yes Diabetes: No Diminished Hearing: No Endocrine: No Gastrointestinal Disorders: No Glaucoma: No Genitourinary: No Hepatitis: No Hiatal Hernia: No Hypertension: No Immune Disorder: No Implanted Vascular Access Dvce: Yes Musculoskeletal: Yes Neurologic: No Psychiatric: Yes Reproductive: No Respiratory: Yes Immunizations Current: No Thyroid Disease: No Influenza Vaccination: Yes PNEUMOCCOCAL Vaccine (Year): 2 ?: Not Menopausal: Yes Past Surgical History Abdominal Surgery: Yes (APPENDECTOMY) Appendectomy: Yes Cardiac Surgery: No Ear Surgery: No Endocrine Surgery: No Eye Surgery: Yes (LENS IMPLANT) Genitourinary Surgery: No Gynecologic Surgery: Yes (HYSTERECTOMY) Hysterectomy: Yes Neurologic Surgery: No Oral Surgery: No Pacemaker: No Thoracic Surgery: No Other Surgery: Yes (RIGHT FOOT SURG) Social History Alcohol Use: No Tobacco Use: Yes (1 CIGARETTE/DAY) Substance Use: No Allergies-Medications (Allergen,Severity, Reaction): Coded Allergies: codeine (Unverified Allergy, Severe, HIVES, 08/20/17) Reported Meds & Prescriptions Reported Meds & Active Scripts Active Pepcid (Famotidine) 20 Mg Tab 10 Mg PO BID Xanax (Alprazolam) 0.5 Mg Tab 0.5 Mg PO Q6H PRN Reported Percocet (Oxycodone-Acetaminophen) 10-325 mg Tab 1 Tab PO Q6H PRN Review of Systems Except as stated in HPI: all other systems reviewed are Neg General / Constitutional: Positive: Fever Physical Exam Narrative GENERAL: 61-year-old female pleasant well-nourished well-developed SKIN: Warm and dry. HEAD: Atraumatic. Normocephalic. EYES: Pupils equal and round. No scleral icterus. No injection or drainage. ENT: No nasal bleeding or discharge. Mucous membranes pink and moist. NECK: Trachea midline. No JVD. CARDIOVASCULAR: Minimal tachycardia. Regular rhythm. RESPIRATORY: Coarse wheezing bilaterally. Minimal tachypnea. GASTROINTESTINAL: Abdomen soft, non-tender, nondistended. Hepatic and splenic margins not palpable. MUSCULOSKELETAL: Extremities without clubbing, cyanosis, or edema. No obvious deformities. NEUROLOGICAL: Awake and alert. No obvious cranial nerve deficits. Motor grossly within normal limits. Five out of 5 muscle strength in the arms and legs. Normal speech. PSYCHIATRIC: Appropriate mood and affect; insight and judgment normal. Data Data Last Documented VS Vital Signs Date Time Temp Pulse Resp B/P (MAP) Pulse Ox O2 Delivery O2 Flow Rate FiO2 08/20/17 15:45 98.0 115 22 153/86 (108) 95 Vital signs reviewed Orders Orders Chest, Single Ap (08/20/17 16:31) Influenzae A/B Antigen (08/20/17 16:31) MDM Medical Decision Making Medical Screen Exam Complete: Yes Emergency Medical Condition: Yes Medical Record Reviewed: Yes Differential Diagnosis Chest pain differential influenza, pneumonia, COPD Narrative Course Patient has lung disease and COPD. She'll go home with Tamiflu and steroids. Diagnosis Primary Impression: COPD exacerbation Additional Impression: Influenza Referrals: Primary Care Physician call for appointment Med/Other Pt SpecificInfo: Prescription(s) given Scripts Albuterol 6.7 GM Inh (Proventil Hfa 6.7 GM Inh) 90 Mcg/Act Aer 2 PUFF INH Q6H Y for SHORTNESS OF BREATH, #1 INHALER 0 Refills Prov: Saurabh Live MD 08/20/17 Prednisone (Prednisone) 20 Mg Tab 40 MG PO DAILY for 4 Days, #8 TAB 0 Refills Take 40 mg (2 tablets) daily for 5 days Prov: Saurabh Live MD 08/20/17 Oseltamivir (Tamiflu) 75 Mg Cap 75 MG PO BID for Mgmt Viral Infection for 7 Days, #14 CAP 0 Refills Prov: Saurabh Live MD 08/20/17 Disposition: 01 DISCHARGE HOME Condition: Stable Saurabh Live MD Aug 20, 2017 17:41
[2017-08-20] MEDS ORDERED: OSELTAMIVIR PHOSPHATE 75 MG CAP PO ONE (17:45)
[2017-08-20] MEDS ORDERED: RESP: ALBUTEROL 2.5 MG/IPRATROPIUM 0.5 MG NEB (SCH) INH ONE (17:45)
[2017-08-20] MEDS ORDERED: predniSONE 20 MG TAB PO ONE (17:45)
[2017-08-20] MEDS ORDERED: SODIUM CHLORIDE 0.9% FLUSH 10 ML FLUSH IVF PRN (17:45)
== END 2017-08-20 19:13 | disposition home or self-care (01) ==
LOC: NEPC 15:43
DX: J44.1 Chronic obstructive pulmonary disease with (acute) exacerbation (principal); J09.X2 Influenza due to identified novel influenza A virus with other respiratory manifestations; M81.0 Age-related osteoporosis without current pathological fracture; F41.9 Anxiety disorder, unspecified; F17.210 Nicotine dependence, cigarettes, uncomplicated; Z79.899 Other long term (current) drug therapy; Z88.5 Allergy status to narcotic agent
CPT/HCPCS: 71045; 87804; 94664; 99284; J7512

== ENCOUNTER 2017-10-30 03:09 | Observation (INO) | payer OTHER, MEDICAID ==
[~2017-10-30] VITALS: Ht 163.8 cm; Wt 60.0 kg
[~2017-10-30 03:09] MED LIST changes: +ALBU6.7H INH; +OSEL75 PO; -PRED10 PO; +PRED20 PO
[2017-10-30 03:17] VITALS: BP 124/81; PULSE 86; RESP 16; TEMP 98; O2SAT 98
[2017-10-30 03:19] VITALS: BP_SYST 116; BP_SYST 124; BP_DIAS 66; BP_DIAS 81; RESP 16; O2SAT 96
[2017-10-30 03:30] LABS: HEMATOCRIT 39.6 % (35.0-46.0); MEAN CELL VOLUME 90.7 FL (80.0-100.0); MEAN CORPUSCULAR HEMOGLOBIN 29.9 PG (27.0-34.0); MEAN PLATELET VOLUME 7.6 FL (7.0-11.0); PLATELET COUNT 318 TH/MM3 (150-450); RED BLOOD COUNT 4.36 MIL/MM3 (4.00-5.30); RED CELL DISTRIBUTION WIDTH 15.1 % (11.6-17.2); WHITE BLOOD COUNT 15.4 TH/MM3 (4.0-11.0)
[2017-10-30] MEDS ORDERED: SODIUM CHLORIDE 0.9% FLUSH 10 ML FLUSH IVF PRN (03:30)
[2017-10-30] MEDS ORDERED: ASPIRIN 81 MG CHEW TAB PO ONE (03:30)
[2017-10-30 03:43] LABS: PROTHROMBIN TIME - PATIENT 10.1 SEC (9.8-11.6)
[2017-10-30] MEDS: RESP: ALBUTEROL 2.5 MG/3 ML NEB (SCH) INH (03:44)
[2017-10-30] MEDS ORDERED: RESP: ALBUTEROL 2.5 MG/IPRATROPIUM 0.5 MG NEB (SCH) INH ONE (03:45)
[2017-10-30] MEDS ORDERED: methylPREDNISolone SOD SUCC 125 MG/2 ML VIAL IV PUSH ONE (03:45)
--- NOTE | 2017-10-30 03:51 | RADRPT ---
EXAM DATE/TIME: 10/30/2017 04:37 [facility] COMPARISON: CHEST PA & LAT, October 02, 2015, 16:17. INDICATIONS : Short of breath. MEDICAL HISTORY : Chronic obstructive pulmonary disease. Arthritis. Melanoma. SURGICAL HISTORY : Appendectomy. Hysterectomy. ENCOUNTER: Initial ACUITY: 1 day PAIN SCORE: 0/10 LOCATION: Bilateral chest FINDINGS: PA and lateral views of the chest demonstrate hyperinflation which can be seen with COPD. No infiltr ates are seen. Heart is normal in size. The mediastinal contours are unremarkable. Osseous structur es are intact. CONCLUSION: Hyperinflation which can be seen with COPD. No evidence for an infiltrate. . Tremayne Wolff MD on October 30, 2017 at 3:47 Board Certified Radiologist. This report was verified electronically.
[2017-10-30 04:04] LABS: BICARBONATE 32.3 MEQ/L (21.0-32.0); BLOOD UREA NITROGEN 17 MG/DL (7-18); CALCIUM 8.3 MG/DL (8.5-10.1); CHLORIDE 107 MEQ/L (98-107); GLOMERULAR FILTRATION RATE 99 ML/MIN (>89); GLUCOSE,RANDOM 98 MG/DL (74-106); MAGNESIUM 2.3 MG/DL (1.5-2.5); SODIUM (NA) 143 MEQ/L (136-145); TROPONIN I LESS THAN 0.02 NG/ML (0.02-0.05)
[2017-10-30 04:16] VITALS: O2SAT 98
[2017-10-30 04:20] LABS: BANDS 2 % (0-6); LYMPHOCYTES 51 % (9-44); MONOCYTES 4 % (0-8); NEUTROPHIL # MANUAL DIFF 6.3 TH/MM3 (1.8-7.7); POLYS (SEG NEUTROPHILS) 39 % (16-70)
[2017-10-30] MEDS ORDERED: ONDANSETRON HCL 4 MG/2 ML VIAL IV PUSH ONE (04:30)
[2017-10-30] MEDS ORDERED: KETOROLAC TROMETHAMINE 30 MG/ML (IVP) VIAL IV PUSH ONE (04:30)
--- NOTE | 2017-10-30 05:16 | PD ---
HPI Chief Complaint: Chest Pain Time Seen by Provider: 03:16 Travel History International Travel<30 days: No Contact w/Intl Traveler<30days: No Traveled to known affect area: No History of Present Illness HPI 71-year-old female with a history of bronchitis/COPD, who presents here today with complaint of shortness of breath and cough. Patient also reported bilateral chest pain. States that 4 days ago it started as right posterior chest pain. She states is now radiated to her under her left breast. She denies any chills but does report fevers subjectively. She also reports green phlegm. Patient states severe shortness of breath and pleuritic pain. She reports the pain as a 9 out of 10 on the pain scale. PFSH Past Medical History Arthritis: Yes (osteoporosis) Anxiety: Yes Depression: No Cancer: Yes (MELENOMA) Cardiovascular Problems: No COPD: Yes Diabetes: No Diminished Hearing: No Endocrine: No Gastrointestinal Disorders: No Glaucoma: No Genitourinary: No Hepatitis: No Hiatal Hernia: No Hypertension: No Immune Disorder: No Implanted Vascular Access Dvce: Yes Musculoskeletal: Yes Neurologic: No Psychiatric: Yes Reproductive: No Respiratory: Yes Immunizations Current: No Thyroid Disease: No Tetanus Vaccination: < 5 Years Influenza Vaccination: Yes PNEUMOCCOCAL Vaccine (Year): 2 Menopausal: Yes Past Surgical History Abdominal Surgery: Yes (APPENDECTOMY) Appendectomy: Yes Cardiac Surgery: No Ear Surgery: No Endocrine Surgery: No Eye Surgery: Yes (LENS IMPLANT) Genitourinary Surgery: No Gynecologic Surgery: Yes (HYSTERECTOMY) Hysterectomy: Yes Neurologic Surgery: No Oral Surgery: No Pacemaker: No Thoracic Surgery: No Other Surgery: Yes (RIGHT FOOT SURG) Social History Alcohol Use: No Tobacco Use: Yes (1 CIGARETTE/DAY) Substance Use: No Allergies-Medications (Allergen,Severity, Reaction): Coded Allergies: codeine (Unverified Allergy, Severe, HIVES, 10/30/17) Reported Meds & Prescriptions Reported Meds & Active Scripts Active Proventil Hfa 6.7 GM Inh (Albuterol Sulfate) 90 Mcg/Act Aer 2 Puff INH Q6H PRN Prednisone 20 Mg Tab 40 Mg PO DAILY 4 Days Take 40 mg (2 tablets) daily for 5 days Tamiflu (Oseltamivir Phosphate) 75 Mg Cap 75 Mg PO BID 7 Days Pepcid (Famotidine) 20 Mg Tab 10 Mg PO BID Xanax (Alprazolam) 0.5 Mg Tab 0.5 Mg PO Q6H PRN Reported Percocet (Oxycodone-Acetaminophen) 10-325 mg Tab 1 Tab PO Q6H PRN Review of Systems Except as stated in HPI: all other systems reviewed are Neg General / Constitutional: Positive: Fever, No: Chills HENT: Positive: Neck Pain, No: Headaches, Lightheadedness (Subjective) Cardiovascular: Positive: Chest Pain or Discomfort, Tachycardia, No: Palpitations Respiratory: Positive: Cough, Shortness of Breath (Productive green phlegm), Wheezing Gastrointestinal: No: Nausea, Vomiting, Abdominal Pain Genitourinary: No: Frequency, Dysuria Musculoskeletal: Positive: Pain (Right back pain with cough and deep inspiration), No: Weakness, Edema Skin: No Rash, No Lesions Neurologic: No: Weakness, Dizziness, Headache Physical Exam Narrative GENERAL: Well-developed well-nourished female in mild respiratory discomfort SKIN: Focused skin assessment warm/dry. HEAD: Atraumatic. Normocephalic. EYES: Pupils equal and round. No scleral icterus. No injection or drainage. ENT: No nasal bleeding or discharge. Mucous membranes pink and moist. NECK: Trachea midline. No JVD. CARDIOVASCULAR: Regular rate and rhythm. No murmur appreciated. RESPIRATORY: Diffuse expiratory wheezes with rhonchi at the bilateral bases. GASTROINTESTINAL: Abdomen soft, non-tender, nondistended. Hepatic and splenic margins not palpable. MUSCULOSKELETAL: No obvious deformities. No clubbing. No cyanosis. No edema. NEUROLOGICAL: Awake and alert. No obvious cranial nerve deficits. Motor grossly within normal limits. Normal speech. Data Data Last Documented VS Vital Signs Date Time Temp Pulse Resp B/P (MAP) Pulse Ox O2 Delivery O2 Flow Rate FiO2 10/30/17 04:16 98 Nasal Cannula 2.00 10/30/17 03:19 124/81 (95) 116/66 (83) 10/30/17 03:19 16 10/30/17 03:17 98.0 86 Orders Orders Electrocardiogram (10/30/17 03:16) Basic Metabolic Panel (Bmp) (10/30/17 03:16) Ckmb (Isoenzyme) Profile (10/30/17 03:16) Complete Blood Count With Diff (10/30/17 03:16) Magnesium (Mg) (10/30/17 03:16) Prothrombin Time / Inr (Pt) (10/30/17 03:16) Act Partial Throm Time (Ptt) (10/30/17 03:16) Troponin I (10/30/17 03:16) Ecg Monitoring (10/30/17 03:16) Bilateral Bp Monitoring (10/30/17 03:16) Iv Access Insert/Monitor (10/30/17 03:16) Oximetry (10/30/17 03:16) Oxygen Administration (10/30/17 03:16) Aspirin Chew (Aspirin Chew) (10/30/17 03:30) Sodium Chloride 0.9% Flush (Ns Flush) (10/30/17 03:30) Chest, Pa & Lat (10/30/17 03:16) Albuterol-Ipratropium Neb (Duoneb Neb) (10/30/17 03:45) Albuterol Neb (Albuterol Neb) (10/30/17 03:45) Arterial Blood Gas (Abg) (10/30/17 03:36) Methylprednisolone So Succ Inj (Solumedr (10/30/17 03:45) Ketorolac Inj (Toradol Inj) (10/30/17 04:30) Ondansetron Inj (Zofran Inj) (10/30/17 04:30) Methylprednisolone So Succ Inj (Solumedr (10/30/17 12:00) Albuterol-Ipratropium Neb (Duoneb Neb) (10/30/17 08:00) Levofloxacin 750 Mg Premix Inj (Levaquin (10/30/17 08:00) Budeson-Formot 160-4.5 Mcg Inh (Symbicor (10/30/17 09:00) Guaifenesin Er (Mucinex Er) (10/30/17 09:00) Place In Observation (10/30/17 ) Vital Signs (Adult) Q4H (10/30/17 06:44) Activity Oob Ad Louise (10/30/17 06:44) Diet Regular Basic (10/30/17 Breakfast) Sodium Chloride 0.9% Flush (Ns Flush) (10/30/17 06:45) Sodium Chloride 0.9% Flush (Ns Flush) (10/30/17 09:00) Ondansetron Inj (Zofran Inj) (10/30/17 06:45) Comprehensive Metabolic Panel (10/31/17 06:00) Complete Blood Count With Diff (10/31/17 06:00) Scd Bilateral/Knee High JOEY.BID (10/30/17 06:44) Meet Bilateral/Knee High JOEY.QSHIFT (10/30/17 07:00) Docusate Sodium-Senna (Shena-Colace) (10/30/17 09:00) Magnesium Hydroxide Liq (Milk Of Magnesi (10/30/17 06:45) Sennosides (Senokot) (10/30/17 06:45) Bisacodyl Supp (Dulcolax Supp) (10/30/17 09:00) Lactulose Liq (Lactulose Liq) (10/30/17 06:45) Admit Order (Ed Use Only) (10/30/17 06:56) Labs Laboratory Tests Test 10/30/17 03:20 10/30/17 03:53 White Blood Count 15.4 TH/MM3 Red Blood Count 4.36 MIL/MM3 Hemoglobin 13.0 GM/DL Hematocrit 39.6 % Mean Corpuscular Volume 90.7 FL Mean Corpuscular Hemoglobin 29.9 PG Mean Corpuscular Hemoglobin Concent 33.0 % Red Cell Distribution Width 15.1 % Platelet Count 318 TH/MM3 Mean Platelet Volume 7.6 FL CBC Comment AUTO DIFF Differential Total Cells Counted 100 Neutrophils % (Manual) 39 % Band Neutrophils % 2 % Lymphocytes % 51 % Monocytes % 4 % Eosinophils % 4 % Neutrophils # (Manual) 6.3 TH/MM3 Differential Comment FINAL DIFF MANUAL Platelet Estimate NORMAL Platelet Morphology Comment NORMAL Red Cell Morphology Comment NORMAL Prothrombin Time 10.1 SEC Prothromb Time International Ratio 1.0 RATIO Activated Partial Thromboplast Time 21.3 SEC Blood Urea Nitrogen 17 MG/DL Creatinine 0.60 MG/DL Random Glucose 98 MG/DL Calcium Level 8.3 MG/DL Magnesium Level 2.3 MG/DL Sodium Level 143 MEQ/L Potassium Level 3.9 MEQ/L Chloride Level 107 MEQ/L Carbon Dioxide Level 32.3 MEQ/L Anion Gap 4 MEQ/L Estimat Glomerular Filtration Rate 99 ML/MIN Total Creatine Kinase 78 U/L Troponin I LESS THAN 0.02 NG/ML Blood Gas Puncture Site RT BRACHIAL Blood Gas Patient Temperature 98.6 Blood Gas HCO3 29 mmol/L Blood Gas Base Excess 4.7 mmol/L Blood Gas Oxygen Saturation 88 % Arterial Blood pH 7.41 Arterial Blood Partial Pressure CO2 46 mmHg Arterial Blood Partial Pressure O2 73 mmHg Arterial Blood Oxygen Content 15.9 Vol % Arterial Blood Carboxyhemoglobin 7.0 % Arterial Blood Methemoglobin 0.9 % Blood Gas Hemoglobin 12.8 G/DL Blood Gas Inspired Oxygen 21 % MDM Medical Decision Making Medical Screen Exam Complete: Yes Emergency Medical Condition: Yes Differential Diagnosis Pneumonia versus bronchitis versus pulmonary embolism versus COPD Narrative Course 71-year-old female presents today with complaints of cough, shortness of breath , chest pain, subjective fever. Patient reports yellow phlegm. Patient has a history of COPD. Patient has been given Solu-Medrol and nebulizer treatments. The patient on reexamination is still having significant wheezing. Given this and her colored phlegm, she will be admitted to the hospital for further COPD treatment. Case was discussed with Dr. Higuera. She is agreement with the above plan. Diagnosis Primary Impression: COPD with acute exacerbation Additional Impression: Tobacco abuse Admitting Information Admitting Physician Requests: Observation Cooper Plye MD Oct 30, 2017 05:16
[2017-10-30] MEDS ORDERED: ONDANSETRON HCL 4 MG/2 ML VIAL IVP PRN (06:45)
[2017-10-30] MEDS ORDERED: MAGNESIUM HYDROXIDE SUSP 30 ML CUP PO PRN (06:45)
[2017-10-30] MEDS ORDERED: LACTULOSE SYRUP 20 GM/30 ML CUP PO PRN (06:45)
[2017-10-30] MEDS ORDERED: SENNOSIDES 8.6 MG TAB PO PRN (06:45)
[2017-10-30] MEDS ORDERED: SODIUM CHLORIDE 0.9% FLUSH 10 ML FLUSH IV FLUSH PRN (06:45)
[2017-10-30] MEDS ORDERED: RESP: ALBUTEROL 2.5 MG/IPRATROPIUM 0.5 MG NEB (PRN) NEB (08:00)
[2017-10-30] MEDS: guaiFENesin E.R. 600 MG TAB PO SCH ×2 (08:56→23:19)
[2017-10-30] MEDS: DOCUSATE SODIUM 50 MG/SENNA 8.6 MG TAB PO SCH ×2 (08:56→23:19)
[2017-10-30] MEDS: LEVOFLOXACIN 750 MG PREMIX INJ 150 ML IV SCH (08:56)
[2017-10-30] MEDS ORDERED: BISACODYL 10 MG SUPP RECTAL PRN (09:00)
[2017-10-30] MEDS ORDERED: IOHEXOL 350 MG/ML 10 ML VIAL (for RAD DIAG) IVCONTRAST ONE (10:10)
--- NOTE | 2017-10-30 10:29 | RADRPT ---
EXAM DATE/TIME: 10/30/2017 10:08 [facility] COMPARISON: CT THORAX W/O CONTRAST, June 04, 2017, 21:44. CHEST PA & LAT, October 30, 2017, 4:37. INDICATIONS : Shortness of breath and chest pain. IV CONTRAST: 69 cc Omnipaque 350 (iohexol) IV RADIATION DOSE: 11.34 CTDIvol (mGy) MEDICAL HISTORY : Chronic obstructive pulmonary disease. Melanoma SURGICAL HISTORY : Hysterectomy. Appendectomy. ENCOUNTER: Initial ACUITY: 1 day PAIN SCALE: 5/10 LOCATION: chest TECHNIQUE: Volumetric scanning of the chest was performed using a pulmonary embolism protocol MIP images were re constructed. Using automated exposure control and adjustment of the mA and/or kV according to patien t size, radiation dose was kept as low as reasonably achievable to obtain optimal diagnostic quality images. DICOM format image data is available electronically for review and comparison. Follow-up recommendations for detected pulmonary nodules are based at a minimum on nodule size and pa tient risk factors according to Fleischner Society Guidelines. FINDINGS: PULMONARY ARTERIES: No filling defects are seen in the pulmonary arteries through the segmental level. LUNGS: There is no pneumothorax . There is new mild consolidation versus atelectasis in the right posterior inferior lower lobe. No concerning pulmonary nodule is visualized. PLEURAE: There is no pleural thickening or pleural effusion. MEDIASTINUM: There is good visualization of the great vessels of the middle mediastinum. No evidence of mediastin al or hilar adenopathy/mass. MUSCULOSKELETAL: Within normal limits for patient age. MISCELLANEOUS: The visualized upper abdominal organs demonstrate no acute abnormality. CONCLUSION: 1. No evidence of pulmonary emboli. 2. Mild consolidation versus atelectasis in the posterior right lower lobe. Laureano Nathan MD on October 30, 2017 at 10:20 Board Certified Radiologist. This report was verified electronically.
[2017-10-30 11:29] VITALS: BP 126/71; PULSE 90; RESP 16; TEMP 97.5; O2SAT 95
[2017-10-30] MEDS ORDERED: ACETAMINOPHEN 325 MG TAB PO PRN (12:00)
[2017-10-30] MEDS ORDERED: ASPI-516 CHEW (12:01)
[2017-10-30] MEDS: methylPREDNISolone SOD SUCC 40 MG/1 ML VIAL IV PUSH SCH ×3 (12:54→23:19)
[2017-10-30] MEDS: oxyCODONE/ACETAMINOPHEN 10 MG/325 MG TAB PO PRN ×3 (12:54→23:47)
[2017-10-30] MEDS: BUDESONIDE-FORMOTEROL 160/4.5 MCG INHALER INH SCH ×2 (12:55→23:21)
[2017-10-30] MEDS: SODIUM CHLORIDE 0.9% FLUSH 10 ML FLUSH IV FLUSH SCH ×2 (12:55→21:00)
--- NOTE | 2017-10-30 15:23 | HHI.HP ---
[facility] Primary [facility] Physician Padmaja Garcia MD Admission Diagnosis Acute exacerbation of chronic bronchitis Diagnoses: Chief Complaint: back/chest pain, cough Travel History International Travel<30 Days: No Contact w/Intl Traveler <30 Da: No Traveled to Known Affected Are: No Sepsis Criteria SIRS Criteria (2 or more): Heart rate over 90, WBC > 51247, < 4000 or > 10% bands Sepsis Criteria (SIRS+source): Infect source susp/known Criteria Outcome: Meets sepsis criteria History of Present Illness Written by Leti Bui, acting as scribe for Dr. Saunders on 10/30/17 at 15: 19. 71-year-old female with history of COPD, osteoporosis, melanoma s/p resection, presents with a 4 day history of back pain, chest pain, shortness of breath, and cough. The patient reports on 10/26 she started to develop dry hacking nonproductive cough and subsequent mid thoracic back pain that then radiated around the ribs to the left anterolateral chest under the left breast. She states the pain became so bad that she couldn't hardly move. The pain is described as severe constant sharp pains, much worse with cough and deep inspiration. She gets some relief by lying on the right side. Yesterday her cough became productive with green sputum. She reports subjective fevers and chills. She reports sore throat and hoarse voice secondary to the cough. Denies any leg swelling. She reports nausea and "regurgitation" of food when she starts coughing while eating. Her last EGD was approximately 35 years ago and was told she had an ulcer. She reports significant recent weight loss which she attributes to being under a lot of stress recently due to the loss of her best friend in August and her sister in September. Her PCP is Dr. Garcia. Denies having a livestock speculator. The patient has no other medical complaints to report at this time. Review of Systems Except as stated in HPI: all other systems reviewed are Neg Past Family Social History Past Medical History COPD osteoporosis melanoma s/p resection Past Surgical History Hysterectomy Appendectomy Right ankle repair Melanoma resection from nose Ocular lens replacement Reported Medications Prednisone 20 Mg Tab 40 Mg PO DAILY 4 Days Take 40 mg (2 tablets) daily for 5 days Pepcid (Famotidine) 20 Mg Tab 10 Mg PO BID Aspirin 81 Mg Chew 81 Mg CHEW DAILY Percocet (Oxycodone-Acetaminophen) 10-325 mg Tab 1 Tab PO Q6H PRN Allergies: Coded Allergies: codeine (Unverified Allergy, Severe, HIVES, 10/30/17) Active Ordered Medications Current Medications Medications (Trade) Dose Ordered Sig/Christopher Route Start Time Stop Time Status Last Admin (NS Flush) 2 ml UNSCH PRN IVF 10/30/17 03:30 (SoluMEDROL INJ) 40 mg Q6HR IV PUSH 10/30/17 12:00 10/30/17 12:54 (Duoneb Neb) 1 ampule Q4HR NEB PRN NEB 10/30/17 08:00 Levofloxacin/ Dextrose 150 ml @ 100 mls/hr Q24H IV 10/30/17 08:00 10/30/17 08:56 (Symbicort 160-4.5 Mcg Inh) 2 puff Q12HR INH 10/30/17 09:00 10/30/17 12:55 (Mucinex Er) 600 mg BID PO 10/30/17 09:00 10/30/17 08:56 (NS Flush) 2 ml UNSCH PRN IV FLUSH 10/30/17 06:45 (NS Flush) 2 ml BID IV FLUSH 10/30/17 09:00 10/30/17 12:55 (Zofran Inj) 4 mg Q6H PRN IVP 10/30/17 06:45 (Shena-Colace) 1 tab BID PO 10/30/17 09:00 10/30/17 08:56 (Milk Of Magnesia Liq) 30 ml Q12H PRN PO 10/30/17 06:45 (Senokot) 17.2 mg Q12H PRN PO 10/30/17 06:45 (Dulcolax Supp) 10 mg DAILY PRN RECTAL 10/30/17 09:00 (Lactulose Liq) 30 ml DAILY PRN PO 10/30/17 06:45 (Percocet 10-325 Mg) 1 tab Q6H PRN PO 10/30/17 12:00 10/30/17 12:54 (Tylenol) 650 mg Q6H PRN PO 10/30/17 12:00 Family History Father in his sleep around age 70 with massive [place] Mother with dementia, PICKs disease, age 86 Social History Smokes tobacco however quit over the past week since she's been sick Denies alcohol or illicit drug use Physical Exam Vital Signs Vital Signs Date Time Temp Pulse Resp B/P (MAP) Pulse Ox O2 Delivery O2 Flow Rate FiO2 10/30/17 11:29 97.5 90 16 126/71 (89) 95 10/30/17 09:14 10/30/17 04:16 98 Nasal Cannula 2.00 10/30/17 03:19 96 Room Air 10/30/17 03:19 124/81 (95) 116/66 (83) 10/30/17 03:19 16 96 Room Air 10/30/17 03:17 98.0 86 16 124/81 (95) 98 Physical Exam GENERAL: Well-nourished, well-developed pleasant female patient in [facility]. SKIN: Warm and dry. No rash. Right lopez with abrasion, covered with bandage. HEAD: Normocephalic. Atraumatic. EYES: Pupils equal and round. No scleral icterus. No injection or drainage. ENT: No nasal bleeding or discharge. Mucous membranes pink and moist. NECK: Supple. Trachea midline. CARDIOVASCULAR: Regular rate and rhythm. S1, S2 noted. No murmur appreciated. RESPIRATORY: No accessory muscle use. Slight wheezes bilaterally with dry crackles bilateral bases. Breath sounds equal bilaterally. GASTROINTESTINAL: Abdomen soft, non-tender, nondistended. Normoactive bowel sounds x4. MUSCULOSKELETAL: No obvious deformities. Extremities without clubbing, cyanosis , or edema. NEUROLOGICAL: Awake and alert. No obvious cranial nerve deficits. Motor grossly within normal limits. Normal speech. Soft hoarse voice. PSYCHIATRIC: Appropriate mood and affect; insight and judgment normal. Laboratory Laboratory Tests Test 10/30/17 03:20 10/30/17 03:53 White Blood Count 15.4 Red Blood Count 4.36 Hemoglobin 13.0 Hematocrit 39.6 Mean Corpuscular Volume 90.7 Mean Corpuscular Hemoglobin 29.9 Mean Corpuscular Hemoglobin Concent 33.0 Red Cell Distribution Width 15.1 Platelet Count 318 Mean Platelet Volume 7.6 CBC Comment AUTO DIFF Differential Total Cells Counted 100 Neutrophils % (Manual) 39 Band Neutrophils % 2 Lymphocytes % 51 Monocytes % 4 Eosinophils % 4 Neutrophils # (Manual) 6.3 Differential Comment FINAL DIFF MANUAL Platelet Estimate NORMAL Platelet Morphology Comment NORMAL Red Cell Morphology Comment NORMAL Prothrombin Time 10.1 Prothromb Time International Ratio 1.0 Activated Partial Thromboplast Time 21.3 Blood Urea Nitrogen 17 Creatinine 0.60 Random Glucose 98 Calcium Level 8.3 Magnesium Level 2.3 Sodium Level 143 Potassium Level 3.9 Chloride Level 107 Carbon Dioxide Level 32.3 Anion Gap 4 Estimat Glomerular Filtration Rate 99 Total Creatine Kinase 78 Troponin I LESS THAN 0.02 Blood Gas Puncture Site RT BRACHIAL Blood Gas Patient Temperature 98.6 Blood Gas HCO3 29 Blood Gas Base Excess 4.7 Blood Gas Oxygen Saturation 88 Arterial Blood pH 7.41 Arterial Blood Partial Pressure CO2 46 Arterial Blood Partial Pressure O2 73 Arterial Blood Oxygen Content 15.9 Arterial Blood Carboxyhemoglobin 7.0 Arterial Blood Methemoglobin 0.9 Blood Gas Hemoglobin 12.8 Blood Gas Inspired Oxygen 21 Result Diagram: 10/30/170 10/30/17 032 Imaging Last Impressions Chest X-Ray 10/30/17315 Signed Impressions: Service Date/Time: Monday, October 30, 2017 04:37 - CONCLUSION: Hyperinflation which can be seen with COPD. No evidence for an infiltrate. . Tremayne Wolff MD Caprini VTE Risk Assessment Caprini VTE Risk Assessment: Mod/High Risk (score >= 2) Caprini Risk Assessment Model Point Value = 1 Point Value = 2 Point Value = 3 Point Value = 5 Age 41-60 Minor surgery BMI > 25 kg/m2 Swollen legs Varicose veins or History of unexplained or recurrent spontaneous Oral contraceptives or hormone replacement Sepsis (< 1 month) Serious lung disease, including pneumonia (< 1 month) Abnormal pulmonary function Acute myocardial infarction Congestive heart failure (< 1 month) History of inflammatory bowel disease Medical patient at bed rest Age 61-74 Arthroscopic surgery Major open surgery (> 45 min) Laparoscopic surgery (> 45 min) Malignancy Confined to bed (> 72 hours) Immobilizing plaster cast Central venous access Age >= 75 History of VTE Family history of VTE Factor V Leiden Prothrombin [id number] Lupus anticoagulant Anticardiolipin antibodies Elevated serum homocysteine Heparin-induced thrombocytopenia Other congenital or acquired thrombophilia Stroke (< 1 month) Elective arthroplasty Hip, pelvis, or leg fracture Acute spinal cord injury (< 1 month) Prophylaxis Regimen Total Risk Factor Score Risk Level Prophylaxis Regimen 0-1 Low Early ambulation 2 Moderate Order ONE of the following: *Sequential Compression Device (SCD) *Heparin 5000 units SQ BID 3-4 Higher Order ONE of the following medications: *Heparin 5000 units SQ TID *Enoxaparin/Lovenox 40 mg SQ daily (WT < 150 kg, CrCl > 30 mL/min) *Enoxaparin/Lovenox 30 mg SQ daily (WT < 150 kg, CrCl > 10-29 mL/min) *Enoxaparin/Lovenox 30 mg SQ BID (WT < 150 kg, CrCl > 30 mL/min) AND/OR *Sequential Compression Device (SCD) 5 or more Highest Order ONE of the following medications: *Heparin 5000 units SQ TID (Preferred with Epidurals) *Enoxaparin/Lovenox 40 mg SQ daily (WT < 150 kg, CrCl > 30 mL/min) *Enoxaparin/Lovenox 30 mg SQ daily (WT < 150 kg, CrCl > 10-29 mL/min) *Enoxaparin/Lovenox 30 mg SQ BID (WT < 150 kg, CrCl > 30 mL/min) AND *Sequential Compression Device (SCD) Assessment and Plan Problem List: (1) Pneumonia ICD Code: J18.9 - Pneumonia, unspecified organism (2) COPD with acute exacerbation ICD Code: J44.1 - Chronic obstructive pulmonary disease with (acute) exacerbation Status: Resolved (3) Sepsis ICD Code: A41.9 - Sepsis, unspecified organism Status: Resolved Assessment and Plan 71-year-old female with history of COPD, osteoporosis, melanoma s/p resection, presents with a 4 day history of back pain, chest pain, shortness of breath, and cough. Acute Respiratory Failure with Hypoxia: ABG upon arrival with O2 sat 88%. Likely multifactorial with pneumonia and COPD exacerbation -see individual treatment of pneumonia and COPD below -continue O2 as needed -monitor for improvement Sepsis with Community Acquired Pneumonia: meets sepsis criteria with + leukocytosis WBC 15.4K, tachycardia HR 106, and source-pneumonia. -CXR images reviewed and unremarkable, chronic hyperinflation; however CT-PA shows RLL consolidation, no PE. -Continue on antibiotics with IV Levaquin, add IV Flagyl for anaerobic coverage -Supportive treatment with nebulizers -Mucinex bid -Incentive spirometry, Acapella Acute COPD Exacerbation: likely exacerbated by infection as above -Continue duonebs tid and q4h prn -Continue Symbicort bid -Continue steroids with IV Solumedrol 40mg q6h -monitor for improvement Chest/Thoracic Pain: pleuritic/musculoskeletal pains secondary to pneumonia and excessive/forceful coughing. -pain ongoing x4days, troponin negative, doubt ACS -No PE on CT-PA -treat infection as above -percocet prn pain -tessalon prn cough Tobacco Use: chronic, reportedly quit 1 week ago since being sick -counseled on continued cessation DVT Prophylaxis: lovenox Discussed Condition With Patient, RN Attending Statement This note was transcribed by bryan Bui. I, Dr. Felipe Saunders personally performed the history, physical exam, and medical decision making; and confirmed the accuracy of the information in the transcribed note. Authenticated by Dr. Felipe Saunders on 10/30/17 at 19:22. Leti Bui PA-C Oct 30, 2017 15:23 Felipe Saunders MD Oct 30, 2017 19:22
[2017-10-30 16:14] VITALS: BP 123/59; PULSE 106; RESP 16; TEMP 98; O2SAT 96
[2017-10-30] MEDS ORDERED: BENZONATATE 100 MG CAP PO PRN (17:45)
[2017-10-30] MEDS: metroNIDAZOLE 500 MG INJ 100 ML IV SCH ×2 (17:59→23:21)
[2017-10-30] MEDS ORDERED: ADVA250A INH (18:44)
[2017-10-30] MEDS: RESP: ALBUTEROL 2.5 MG/IPRATROPIUM 0.5 MG NEB (SCH) NEB (20:10)
[2017-10-30] MEDS ORDERED: ENOXAPARIN SODIUM 40 MG/0.4 ML SYRINGE SQ SCH (21:00)
[2017-10-31 00:13] VITALS: O2SAT 96
--- NOTE | 2017-10-31 00:16 | EKG ---
Date Performed: 10/30/2017 Time Performed: 03:24:41 PTAGE: 71 years EKG: Sinus rhythm INCOMPLETE RIGHT BUNDLE BRANCH BLOCK BORDERLINE ECG NO PREVIOUS TRACING DOCTOR: Smitha Morse Interpretating Date/Time 10/31/2017 00:08:28
[2017-10-31 03:52] VITALS: BP 112/69; PULSE 84; RESP 16; TEMP 98.5; O2SAT 94
[2017-10-31 06:20] LABS: AUTOMATED NEUTROPHIL # 12.1 TH/MM3 (1.8-7.7); BASOPHIL # 0.1 TH/MM3 (0-0.2); BASOPHIL % 0.5 % (0.0-2.0); HEMATOCRIT 36.8 % (35.0-46.0); HEMOGLOBIN 12.3 GM/DL (11.6-15.3); LYMPH % 15.5 % (9.0-44.0); LYMPHOCYTE # 2.4 TH/MM3 (1.0-4.8); MEAN CELL VOLUME 89.9 FL (80.0-100.0); MEAN CORPUSCULAR HEMOGLOBIN 30.1 PG (27.0-34.0); MEAN CORPUSCULAR HGB CONC 33.5 % (32.0-36.0); MEAN PLATELET VOLUME 8.1 FL (7.0-11.0); MONO % 6.4 % (0.0-8.0); NEUT % 77.6 % (16.0-70.0); PLATELET COUNT 289 TH/MM3 (150-450); RED BLOOD COUNT 4.09 MIL/MM3 (4.00-5.30); RED CELL DISTRIBUTION WIDTH 15.2 % (11.6-17.2); WHITE BLOOD COUNT 15.6 TH/MM3 (4.0-11.0)
[2017-10-31] MEDS: methylPREDNISolone SOD SUCC 40 MG/1 ML VIAL IV PUSH SCH (06:31)
[2017-10-31] MEDS: oxyCODONE/ACETAMINOPHEN 10 MG/325 MG TAB PO PRN (06:42)
[2017-10-31 06:48] LABS: ALBUMIN 2.8 GM/DL (3.4-5.0); AST (GOT) 18 U/L (15-37); BICARBONATE 27.3 MEQ/L (21.0-32.0); BLOOD UREA NITROGEN 18 MG/DL (7-18); CALCIUM 8.6 MG/DL (8.5-10.1); CHLORIDE 105 MEQ/L (98-107); CREATININE 0.57 MG/DL (0.50-1.00); GLOMERULAR FILTRATION RATE 105 ML/MIN (>89); GLUCOSE,RANDOM 132 MG/DL (74-106); SODIUM (NA) 139 MEQ/L (136-145)
[2017-10-31 06:51] LABS: ALKALINE PHOSPHATASE 73 U/L (45-117); ALT (GPT) 35 U/L (10-53); TOTAL BILIRUBIN ADULT 0.2 MG/DL (0.2-1.0); TOTAL PROTEIN 6.1 GM/DL (6.4-8.2)
[2017-10-31] MEDS: RESP: ALBUTEROL 2.5 MG/IPRATROPIUM 0.5 MG NEB (SCH) NEB (07:15)
[2017-10-31 07:19] VITALS: BP 123/69; PULSE 77; RESP 18; TEMP 98.6; O2SAT 99
[2017-10-31] MEDS: LEVOFLOXACIN 750 MG PREMIX INJ 150 ML IV SCH (08:03)
[2017-10-31] MEDS: DOCUSATE SODIUM 50 MG/SENNA 8.6 MG TAB PO SCH (09:00)
[2017-10-31] MEDS: BUDESONIDE-FORMOTEROL 160/4.5 MCG INHALER INH SCH (09:24)
[2017-10-31] MEDS: SODIUM CHLORIDE 0.9% FLUSH 10 ML FLUSH IV FLUSH SCH (09:25)
[2017-10-31] MEDS: guaiFENesin E.R. 600 MG TAB PO SCH (09:25)
[2017-10-31] MEDS: metroNIDAZOLE 500 MG INJ 100 ML IV SCH (09:30)
[2017-10-31] MEDS ORDERED: predniSONE 50 MG TAB PO SCH (10:15)
[2017-10-31] MEDS ORDERED: MAGNESIUM HYDROXIDE SUSP 30 ML CUP PO ONE (10:15)
[2017-10-31] MEDS ORDERED: DOCUSATE SODIUM 50 MG/SENNA 8.6 MG TAB PO ONE (10:15)
--- NOTE | 2017-10-31 10:15 | HHI.PR ---
Subjective Remarks Patient reports a pleuritic pain continues. Says that breathing is comfortable now. Says she feels like she would be able to go home. Has any nausea or vomiting Objective Vital Signs Date Time Temp Pulse Resp B/P (MAP) Pulse Ox O2 Delivery O2 Flow Rate FiO2 10/31/17 07:19 98.6 77 18 123/69 (87) 99 10/31/17 03:52 98.5 84 16 112/69 (83) 94 10/31/17 00:39 18 10/31/17 00:13 96 10/30/17 16:14 98.0 106 16 123/59 (80) 96 10/30/17 11:29 97.5 90 16 126/71 (89) 95 I/O 10/30/17 10/30/17 10/30/17 10/31/17 10/31/17 10/31/17 07:00 15:00 23:00 07:00 15:00 23:00 Intake Total 200 ml Balance 200 ml Intake Oral 200 ml # Voids 1 Result Diagram: 10/31/17 0510/31/17 05 Objective Remarks GENERAL: Patient sitting up in bed. Appears comfortable. Alert and oriented 3. SKIN: Warm and dry. HEAD: Normocephalic. EYES: No scleral icterus. No injection or drainage. NECK: Supple, trachea midline. No JVD. CARDIOVASCULAR: Regular rate and rhythm without murmurs, gallops, or rubs. RESPIRATORY: Breath sounds equal bilaterally. No accessory muscle use. Wheezing as yesterday. No rhonchi. GASTROINTESTINAL: Abdomen soft, non-tender, nondistended. MUSCULOSKELETAL: No cyanosis, or edema. BACK: Nontender without obvious deformity. No CVA tenderness. A/P Assessment and Plan 71-year-old female with history of COPD, osteoporosis, melanoma s/p resection, presents with a 4 day history of back pain, chest pain, shortness of breath, and cough. //Acute Respiratory Failure with Hypoxia: ABG upon arrival with O2 sat 88%. Likely multifactorial with pneumonia and COPD exacerbation -see individual treatment of pneumonia and COPD below -continue O2 as needed -monitor for improvement = Much improved. Transition to by mouth prednisone. //Sepsis with Community Acquired Pneumonia: meets sepsis criteria with + leukocytosis WBC 15.4K, tachycardia HR 106, and source-pneumonia. -CXR images reviewed and unremarkable, chronic hyperinflation; however CT-PA shows RLL consolidation, no PE. -Continue on antibiotics with IV Levaquin, add IV Flagyl for anaerobic coverage -Supportive treatment with nebulizers -Mucinex bid -Incentive spirometry, Acapella //Acute COPD Exacerbation: likely exacerbated by infection as above -Continue duonebs tid and q4h prn -Continue Symbicort bid -Continue steroids with IV Solumedrol 40mg q6h -monitor for improvement = Improved. Transition to prednisone. //Chest/Thoracic Pain: pleuritic/musculoskeletal pains secondary to pneumonia and excessive/forceful coughing. -pain ongoing x4days, troponin negative, doubt ACS -No PE on CT-PA -treat infection as above -percocet prn pain -tessalon prn cough = Likely secondary to forceful coughing. No positive abnormalities visualized on CT chest. //Tobacco Use: chronic, reportedly quit 1 week ago since being sick -counseled on continued cessation DVT Prophylaxis: lovenox Discharge Planning Discharge home with prednisone taper, nebulizations. Follow-up pulmonary primary care as outpatient. Felipe Saunders MD Oct 31, 2017 10:15
[2017-10-31] MEDS ORDERED: AUGM875T3 PO (10:19)
[2017-10-31] MEDS ORDERED: LEVA750T9 PO (10:19)
[2017-10-31] MEDS ORDERED: BENZ100 PO (10:19)
[2017-10-31] MEDS ORDERED: guaiFENesin ER PO (10:19)
[2017-10-31] MEDS ORDERED: Albuterol-Ipratropium Neb NEB ×2 (10:19)
[2017-10-31] MEDS ORDERED: PRED10 PO (10:19)
[2017-10-31 11:11] VITALS: BP 129/74; PULSE 96; RESP 16; TEMP 98.8; O2SAT 95
[2017-10-31] MEDS ORDERED: DOCUSATE SODIUM 50 MG/SENNA 8.6 MG TAB PO SCH (21:00)
== END 2017-10-31 14:24 | disposition home or self-care (01) ==
LOC: NEPE 03:09 → NEDA 06:58 → NEPFCDU 09:08
PROVIDERS: ADMIT Internal Medicine; ATTEND Internal Medicine
DX: J44.0 Chronic obstructive pulmonary disease with (acute) lower respiratory infection (principal); J18.9 Pneumonia, unspecified organism; J44.1 Chronic obstructive pulmonary disease with (acute) exacerbation; J96.01 Acute respiratory failure with hypoxia; A41.9 Sepsis, unspecified organism; I45.10 Unspecified right bundle-branch block; M81.0 Age-related osteoporosis without current pathological fracture; F17.210 Nicotine dependence, cigarettes, uncomplicated; Z85.820 Personal history of malignant melanoma of skin; Z79.82 Long term (current) use of aspirin
CPT/HCPCS: 36600; 71046; 71275; 80048; 80053; 82550; 82805; 83735; 84484; 85007; 85025; 85027; 85610; 85730; 93005; 94150; 94640; 94664; 94667; 96365; 96366; 96372; 96375; 96376; 99285; G0378; J1650; J1885; J1956; J2405; J2920; J2930; J7512; J7613; Q9967

== ENCOUNTER 2018-05-25 16:19 | Observation (INO) ==
--- NOTE | 2018-05-25 17:09 | ED ---
HPI General Chief Complaint: Respiratory Symptoms Stated Complaint: sent Time Seen by Provider: 05/25/18 16:48 Source: patient Mode of arrival: ambulatory Limitations: no limitations History of Present Illness HPI Narrative: 72-year-old female presents to the emergency department at the primary care physician for shortness of breath and productive cough that is been persistent for 10 days. Patient states that she completed a Z-Tc about 2 days ago but the shortness of breath and productive cough have not decreased. She denies fevers but states she has had chills. Denies chest pain, abdominal pain, leg pain. Patient says she has had diarrhea and blood-streaked green sputum that started today. Patient denies history of COPD. Denies history of heart disease. She does not use inhalers on a regular basis. She states that it "feels like pneumonia". Patient states she stopped smoking 3 days ago. MD complaint: Reports wheezes and difficulty breathing Onset (ago): day(s) Pain Consistency: constant Fever: No Severity: moderate Context: Reports recent illness, antibiotic use and history of similar presentations Associated symptoms: Reports cough and sputum production; Denies chest pain and abdominal pain Relieving factors: nothing Exacerbating factors: exertion Related Data Home Medications Medication Instructions Recorded Confirmed oxycodone-acetaminophen [Percocet] 1 tab PO Q4H PRN 05/25/18 05/25/18 Allergies Allergy/AdvReac Type Severity Reaction Status Date / Time codeine Allergy Severe HIVES Verified 05/25/18 16:43 Pediatric Review of Systems All systems: reviewed and negative except as stated PMFSH Medical History Medical History History of hysterectomy (Acute) Osteoporosis (Acute) Pneumonia (Acute) Surgical History Surgical History History of eye surgery (Acute) Social History Social History Substance History: No History of Abuse Second Hand Smoke Exposure: Yes Smoking Status: Current every day smoker Tobacco Type: Cigarettes How Often Do You Have a Drink Containing Alcohol: Never Recent Travel in [place] within the Last 8 Weeks: No Recent Out of Country Travel within the Last 8 Weeks: No Immunization History Tetanus Immunization: <5 Years Pediatric Exam GENERAL: Well-developed, well-nourished in mild respiratory distress upon evaluation SKIN: Focused skin assessment warm/dry. HEAD: Atraumatic. Normocephalic. EYES: Pupils equal and round. No scleral icterus. No injection or drainage. ENT: No nasal bleeding or discharge. Mucous membranes pink and moist. NECK: Trachea midline. No JVD. No lymphadenopathy CARDIOVASCULAR: Regular rate and rhythm. No murmur appreciated. RESPIRATORY: No accessory muscle use. Wheezing with coarse rhonchi present, particularly with X dilation GASTROINTESTINAL: Abdomen soft, non-tender, nondistended. Hepatic and splenic margins not palpable. MUSCULOSKELETAL: No obvious deformities. No clubbing. No cyanosis. No edema. NEUROLOGICAL: Awake and alert. No obvious cranial nerve deficits. Motor grossly within normal limits. Normal speech. PSYCHIATRIC: Appropriate mood and affect; insight and judgment normal. Course Initial Documented Vital Signs Temperature 98.4 F 05/25/18 16:40 Pulse Rate 101 H 05/25/18 16:40 Respiratory Rate 20 05/25/18 16:40 Blood Pressure 171/94 H 05/25/18 16:40 Pulse Oximetry 97 05/25/18 16:40 Last Documented Vital Signs Temperature 98.4 F 05/25/18 16:40 Pulse Rate 109 H 05/25/18 20:41 Respiratory Rate 16 05/25/18 20:41 Blood Pressure 128/73 05/25/18 20:41 Pulse Oximetry 97 05/25/18 20:41 Medical Decision Making MDM Narrative Medical decision making narrative: And a productive cough that has been present for approximately 10 days. Patient states that she saw her primary care physician who prescribed a Z-Tc. Her last dose was 2 days ago. Patient continues to have shortness of breath and green colored sputum. She states she also has associated diarrhea. Initial vital signs demonstrate sinus tachycardia, [id number] on room air. Labs are stable. Lactic 1.2. No leukocytosis. Chest x-ray clear. I suspect that patient's labs may be within normal range because of her recent antibiotic use. Duo nebs x2 administered with minimal relief in shortness of breath. Percocet administered for her chronic back pain and developing headache. Levaquin 750 mg ordered p.o. Decadron 8 mg administered IV. Patient to be admitted with developing PNA with hypoxia, failed outpatient antibiotics. Medical Screen Exam Complete: Yes Emergency Medical Condition: Yes Differential Diagnosis Differential Diagnosis: Pneumonia, acute bronchitis, COPD exacerbation Lab Data Result diagrams: 05/25/18 17:00 05/25/18 17:00 Lab Results 05/25/18 05/25/18 05/25/18 Range/Units 17:00 17:00 17:00 WBC 10.8 (4.0-11.0) th/mm3 RBC 4.63 (4.00-5.30) mil/mm3 Hgb 14.4 (11.6-15.3) gm/dL Hct 42.1 (35.0-46.0) % MCV 91.0 (80.0-100.0) fL MCH 31.0 (27.0-34.0) pg MCHC 34.1 (32.0-36.0) % RDW 14.6 (11.6-17.2) % Plt Count 291 (150-450) th/mm3 MPV 7.6 (7.0-11.0) fL Neut % (Auto) 51.7 (16.0-70.0) % Lymph % (Auto) 37.1 (9.0-44.0) % Castro % (Auto) 8.5 H (0.0-8.0) % Eos % (Auto) 2.0 (0.0-4.0) % Baso % (Auto) 0.7 (0.0-2.0) % Neut # (Auto) 5.6 (1.8-7.7) th/mm3 Lymph # (Auto) 4.0 (1.0-4.8) th/mm3 Castro # (Auto) 0.9 (0.0-0.9) th/mm3 Eos # (Auto) 0.2 (0.0-0.4) th/mm3 Baso # (Auto) 0.1 (0.0-0.2) th/mm3 WBC Differential . Differential Comment Auto diff final PT 10.5 (9.8-11.6) sec INR 1.0 Ratio APTT 22.6 L (24.3-30.1) sec Sodium 142 (136-145) meq/L Potassium 3.7 (3.5-5.1) meq/L Chloride 111 H (98-107) meq/L Carbon Dioxide 24.9 (21.0-32.0) meq/L Anion Gap 6 (5-15) meq/L BUN 22 H (7-18) mg/dL Creatinine 0.70 (0.50-1.00) mg/dL Estimated GFR 83 L (>89) mL/min Random Glucose 95 (74-106) mg/dL Lactic Acid (0.4-2.0) mmol/L Calcium 9.3 (8.5-10.1) mg/dL Magnesium 2.3 (1.5-2.5) mg/dL Total Bilirubin 0.3 (0.2-1.0) mg/dL AST 29 (15-37) U/L ALT 48 (10-53) U/L Alkaline Phosphatase 84 (45-117) U/L C-Reactive Protein (0.00-0.30) mg/dL B-Natriuretic Peptide (0-100) pg/mL Total Protein 7.8 (6.4-8.2) g/dL Albumin 3.6 (3.4-5.0) g/dL 05/25/18 05/25/18 05/25/18 Range/Units 17:00 17:05 18:47 WBC (4.0-11.0) th/mm3 RBC (4.00-5.30) mil/mm3 Hgb (11.6-15.3) gm/dL Hct (35.0-46.0) % MCV (80.0-100.0) fL MCH (27.0-34.0) pg MCHC (32.0-36.0) % RDW (11.6-17.2) % Plt Count (150-450) th/mm3 MPV (7.0-11.0) fL Neut % (Auto) (16.0-70.0) % Lymph % (Auto) (9.0-44.0) % Castro % (Auto) (0.0-8.0) % Eos % (Auto) (0.0-4.0) % Baso % (Auto) (0.0-2.0) % Neut # (Auto) (1.8-7.7) th/mm3 Lymph # (Auto) (1.0-4.8) th/mm3 Castro # (Auto) (0.0-0.9) th/mm3 Eos # (Auto) (0.0-0.4) th/mm3 Baso # (Auto) (0.0-0.2) th/mm3 WBC Differential Differential Comment PT (9.8-11.6) sec INR Ratio APTT (24.3-30.1) sec Sodium (136-145) meq/L Potassium (3.5-5.1) meq/L Chloride (98-107) meq/L Carbon Dioxide (21.0-32.0) meq/L Anion Gap (5-15) meq/L BUN (7-18) mg/dL Creatinine (0.50-1.00) mg/dL Estimated GFR (>89) mL/min Random Glucose (74-106) mg/dL Lactic Acid 1.2 (0.4-2.0) mmol/L Calcium (8.5-10.1) mg/dL Magnesium (1.5-2.5) mg/dL Total Bilirubin (0.2-1.0) mg/dL AST (15-37) U/L ALT (10-53) U/L Alkaline Phosphatase (45-117) U/L C-Reactive Protein Less than 0.29 (0.00-0.30) mg/dL B-Natriuretic Peptide 13 (0-100) pg/mL Total Protein (6.4-8.2) g/dL Albumin (3.4-5.0) g/dL Imaging Data Radiologist's impression: Chest CT 05/25/18 00:00 CONCLUSION: 1. Peribronchial thickening with mild distal airway disease. No consolidation, effusion or adenopathy. 2. Mild coronary calcifications. No acute findings in the upper abdomen. Chest X-Ray 05/25/18 16:57 CONCLUSION: Negative examination. Discharge Plan Discharge Disposition Patient Disposition: 30 Still Patient Discharge Condition Condition: Stable Discharge Details Diagnosis: Pneumonia, Hypoxia, Failure of outpatient treatment Physicians Team ED Provider: Wilder Badillo ED Midlevel Provider: Letty Walker Primary Care Provider: Padmaja Garcia Attending Provider: Evelyne Mercedes Status ED Status: Admitted Observation Patient
[2018-05-25 17:22] LABS: Baso # (Auto) 0.1 th/mm3 (0.0-0.2); Baso % (Auto) 0.7 % (0.0-2.0); Eos # (Auto) 0.2 th/mm3 (0.0-0.4); Hematocrit 42.1 % (35.0-46.0); Hemoglobin 14.4 gm/dL (11.6-15.3); Lymph % (Auto) 37.1 % (9.0-44.0); Mean Corpuscular HGB Conc 34.1 % (32.0-36.0); Mean Platelet Volume 7.6 fL (7.0-11.0); Mono # (Auto) 0.9 th/mm3 (0.0-0.9); Mono % (Auto) 8.5 % (0.0-8.0); Neut # (Auto) 5.6 th/mm3 (1.8-7.7); Neut % (Auto) 51.7 % (16.0-70.0); Platelet Count 291 th/mm3 (150-450); Red Blood Count 4.63 mil/mm3 (4.00-5.30); Red Cell Distribution Width 14.6 % (11.6-17.2); White Blood Count 10.8 th/mm3 (4.0-11.0)
--- NOTE | 2018-05-25 17:29 | XR ---
EXAM DATE: 05/25/2018 4:57 PM EDT AGE/SEX: 72 years / Female INDICATIONS: Shortness of breath. CLINICAL DATA: This is the patient's initial encounter. Patient reports that signs and symptoms have been present for 1 day and indicates a pain score of 0/10. MEDICAL/SURGICAL HISTORY: Osteoporosis. None. COMPARISON: No prior exams available for comparison. FINDINGS: A single AP view of the chest demonstrates the lungs to be symmetrically aerated without evidence of mass, infiltrate or effusion. The cardiomediastinal contours are unremarkable. Osseous structures a re intact. CONCLUSION: Negative examination. Electronically signed by: Raleigh Smith MD 05/25/2018 5:27 PM EDT
[2018-05-25 17:30] LABS: Activated Partial Thrombo Time 22.6 sec (24.3-30.1); Prothrombin Time 10.5 sec (9.8-11.6)
[2018-05-25 17:42] LABS: Albumin 3.6 g/dL (3.4-5.0); Anion Gap 6 meq/L (5-15); Aspartate Aminotransferase 29 U/L (15-37); Blood Urea Nitrogen 22 mg/dL (7-18); Calcium 9.3 mg/dL (8.5-10.1); Carbon Dioxide 24.9 meq/L (21.0-32.0); Chloride 111 meq/L (98-107); Glomerular Filtration Rate 83 mL/min (>89); Glucose,Random 95 mg/dL (74-106); Magnesium 2.3 mg/dL (1.5-2.5); Potassium 3.7 meq/L (3.5-5.1); Sodium 142 meq/L (136-145)
[2018-05-25 17:43] LABS: Alanine Aminotransferase 48 U/L (10-53)
[2018-05-25 17:46] LABS: Alkaline Phosphatase 84 U/L (45-117); Total Protein 7.8 g/dL (6.4-8.2)
[2018-05-25] MEDS ORDERED: oxyCODONE/Acetaminophen 10/325 Tablet PO ONE (18:23)
[2018-05-25] MEDS ORDERED: levoFLOXacin 750 MG Tablet PO ONE (18:23)
[2018-05-25] MEDS ORDERED: Bisacodyl 10 MG Supp RECTAL PRN (18:33)
[2018-05-25] MEDS ORDERED: guaiFENesin 600 MG ER Tablet PO PRN (18:36)
[2018-05-25] MEDS ORDERED: Benzonatate 100 MG Capsule PO PRN (18:36)
[2018-05-25] MEDS ORDERED: predniSONE 20 MG Tablet PO SCH (18:45)
--- NOTE | 2018-05-25 18:58 | P.HPIM ---
History of Present Illness Primary Care Physician: Padmaja Garcia MD History of Present Illness: This is a 72-year-old female with a PMH of HTN and COPD who presents to ER with complaints of SOB, wheezing and productive cough w/ green-colored sputum x10 days. Was seen by PCP and given Rx for Z-pack which she completed 2 days ago, notes minimal improvement in symptoms. Denies fever, chills, chest pain or sick contacts. Notes she had her Flu and Pneumonia vaccine on 04/29/18. On arrival, BP 171/94, HR 101, O2 sat 97% on 2L NC, Afebrile. CBC unremarkable. INR 1.0. Chemistry essentially unremarkable except for BUN 22, GFR 83. Lactic Acid normal. Exar with no acute findings. CT Chest w/ peribronchial thickening and mild distal airway disease, no consolidation. S/p Decadron, DuoNeb and Levaquin w/ some improvement, however persistent SOB/wheezing. Not on Home O2. - Diagnosis (1) COPD (chronic obstructive pulmonary disease) (2) HTN (hypertension) (3) Dehydration Review of Systems PAST FAMILY HISTORY: Reviewed. No h/o DM or CAD All other systems reviewed negative except as stated in HPI PMFSH - History History Provided By: Patient - Medical History Medical History: Medical History (Last Updated 05/25/18 @ 16:58 by Lyndsay Martinez) History of hysterectomy Osteoporosis Pneumonia - Surgical History Surgical History: Surgical History (Last Updated 05/25/18 @ 16:58 by Lyndsay Martinez) History of eye surgery - Tobacco History Second Hand Smoke Exposure: Yes Tobacco Use In Past 30 Days: Yes Smoking Status: Current every day smoker Tobacco Type: Cigarettes - Alcohol History How Often Do You Have a Drink Containing Alcohol: Never - Substance Use History Substance History: No History of Abuse - Travel History Recent Travel in the [place] Within the Last 8 Weeks: No Recent Travel Out of the Country Within the Last 8 Weeks: No - Immunization History Tetanus Immunization: <5 Years Medications and Allergies Active Medications: Active Medications Acetaminophen (Tylenol) 650 mg PO Q4H PRN PRN Reason: Temp > 100.4 Al Hydroxide/Mg Hydroxide (Milk Of Magnesia Liq) 30 ml PO Q12H PRN PRN Reason: Mild Constipation Albuterol (Duoneb Neb (Christopher)) 1 ampul NEB Q6HR WHILE AWAKE NEB CHRISTOPHER Albuterol (Albuterol Neb (Prn)) 2.5 mg NEB Q4HR NEB PRN PRN Reason: SHORTNESS OF BREATH Benzonatate (Tessalon Perles) 100 mg PO Q8H PRN PRN Reason: COUGH Bisacodyl (Dulcolax Supp) 10 mg RECTAL DAILY PRN PRN Reason: SEVERE CONSITIPATION Guaifenesin (Mucinex Er) 600 mg PO BID PRN PRN Reason: COUGH Sodium Chloride (Ns Inj) 1,000 mls @ 100 mls/hr IV.CONT .Q10H CHRISTOPHER Lactulose (Lactulose Liq) 30 ml PO DAILY PRN PRN Reason: SEVERE CONSITIPATION Levofloxacin (Levaquin) 500 mg PO DAILY CHRISTOPHER Methylprednisolone Sodium Succinate (Solumedrol Inj) 40 mg IV.PUSH Q6H CHRISTOPHER Ondansetron HCl (Zofran Inj) 4 mg IV.PUSH Q6H PRN PRN Reason: NAUSEA OR VOMITING Senna/Docusate Sodium (Shena-Colace) 1 tab PO BID [facility] Sennosides (Senokot) 17.2 mg PO Q12H PRN PRN Reason: Moderate Constipation Allergies Allergy/AdvReac Type Severity Reaction Status Date / Time codeine Allergy Severe HIVES Verified 05/25/18 16:43 Home Medications Medication Instructions Recorded Confirmed Type oxycodone-acetaminophen [Percocet] 1 tab PO Q4H PRN 05/25/18 05/25/18 History Exam Vital signs: Vital Signs 05/25/18 16:40 05/25/18 16:43 05/25/18 17:44 Temperature 98.4 F Pulse Rate 101 H 100 H 90 Respiratory Rate 20 32 H 22 Blood Pressure 171/94 H 190/105 H Pulse Oximetry 97 97 Intake & Output 05/24/18 05/25/18 05/25/18 18:59 06:59 18:59 Weight 56.245 kg Narrative: PE: GENERAL: Pleasant middle-aged white female in no acute distress. SKIN: Focused skin assessment warm and dry. HEENT: PERRLA, EOMI. No scleral icterus or conjunctival pallor. No lid lag or facial droop. CARDIOVASCULAR: Regular rate and rhythm. No obvious murmurs to auscultation. No chest tenderness to palpation. RESPIRATORY: Coarse breath sounds bilaterally, occasional wheezing. Clear to auscultation. Breath sounds equal bilaterally. GASTROINTESTINAL: Abdomen soft, non-tender, nondistended. BS normal. MUSCULOSKELETAL: Extremities without clubbing, cyanosis, or edema. No obvious deformities. NEUROLOGICAL: Awake, alert and oriented x4. No focal neurologic deficits. Moving both upper and lower extremities spontaneously. PSYCHIATRIC: Appropriate mood and affect. Insight and judgment normal. Results - Labs CBC & Chem 7: 05/25/18 17:00 05/25/18 17:00 Labs: Short CBC 05/25/18 Range/Units 17:00 WBC 10.8 (4.0-11.0) th/mm3 Hgb 14.4 (11.6-15.3) gm/dL Hct 42.1 (35.0-46.0) % Plt Count 291 (150-450) th/mm3 BMP 05/25/18 17:00 Sodium 142 Potassium 3.7 Chloride 111 H Carbon Dioxide 24.9 BUN 22 H Creatinine 0.70 Calcium 9.3 Liver Function 05/25/18 Range/Units 17:00 Total Bilirubin 0.3 (0.2-1.0) mg/dL AST 29 (15-37) U/L ALT 48 (10-53) U/L Alkaline Phosphatase 84 (45-117) U/L Albumin 3.6 (3.4-5.0) g/dL - Imaging Impressions Chest X-Ray 05/25/18 16:57 CONCLUSION: Negative examination. Caprini VTE Risk Assessment Caprini VTE Risk Assessment: No/Low Risk (score <= 1) Caprini Risk Assessment Model: Point Value = 1 Point Value = 2 Point Value = 3 Point Value = 5 Age 41-60 Minor surgery BMI > 25 kg/m2 Swollen legs Varicose veins or History of unexplained or recurrent spontaneous Oral contraceptives or hormone replacement Sepsis (< 1 month) Serious lung disease, including pneumonia (< 1 month) Abnormal pulmonary function Acute myocardial infarction Congestive heart failure (< 1 month) History of inflammatory bowel disease Medical patient at bed rest Age 61-74 Arthroscopic surgery Major open surgery (> 45 min) Laparoscopic surgery (> 45 min) Malignancy Confined to bed (> 72 hours) Immobilizing plaster cast Central venous access Age >= 75 History of VTE Family history of VTE Factor V Leiden Prothrombin [id number] Lupus anticoagulant Anticardiolipin antibodies Elevated serum homocysteine Heparin-induced thrombocytopenia Other congenital or acquired thrombophilia Stroke (< 1 month) Elective arthroplasty Hip, pelvis, or leg fracture Acute spinal cord injury (< 1 month) Prophylaxis Regimen: Total Risk Factor Score Risk Level Prophylaxis Regimen 0-1 Low Early ambulation 2 Moderate Order ONE of the following: *Sequential Compression Device (SCD) *Heparin 5000 units SQ BID 3-4 Higher Order ONE of the following medications: *Heparin 5000 units SQ TID *Enoxaparin/Lovenox 40 mg SQ daily (WT < 150 kg, CrCl > 30 mL/min) *Enoxaparin/Lovenox 30 mg SQ daily (WT < 150 kg, CrCl > 10-29 mL/min) *Enoxaparin/Lovenox 30 mg SQ BID (WT < 150 kg, CrCl > 30 mL/min) AND/OR *Sequential Compression Device (SCD) 5 or more Highest Order ONE of the following medications: *Heparin 5000 units SQ TID (Preferred with Epidurals) *Enoxaparin/Lovenox 40 mg SQ daily (WT < 150 kg, CrCl > 30 mL/min) *Enoxaparin/Lovenox 30 mg SQ daily (WT < 150 kg, CrCl > 10-29 mL/min) *Enoxaparin/Lovenox 30 mg SQ BID (WT < 150 kg, CrCl > 30 mL/min) AND *Sequential Compression Device (SCD) Assessment and Plan - Assessment (1) COPD (chronic obstructive pulmonary disease) Code(s): J44.9 - Chronic obstructive pulmonary disease, unspecified Status: Acute (2) HTN (hypertension) Code(s): I10 - Essential (primary) hypertension Status: Acute (3) Dehydration Code(s): E86.0 - Dehydration Status: Acute - Plan A/P: 1. COPD: Chronic Respiratory Failure w/ Acute Exacerbation. Severe. s/p Decadron and DuoNeb w/ minimal improvement. O2 sat within normal range, monitor O2. CXR w/ no acute findings, CT Chest w/ peribronchial thickening, no consolidation, images reviewed. Solu-Medrol q6h, DuoNeb, Symbicort, Mucinex. 2. HTN: Uncontrolled. Likely compounded by acute COPD/SOB. Monitor BP, antihypertensives as needed. 3. Dehydration: BUN 22, GFR 83, likely from respiratory losses from chronic coughing/SOB. IVF for hydration, repeat labs in am, monitor I/O. 4. DVT Prophylaxis: SCD/Teds 5. Social work for d/c planning as needed 6. Case discussed w/ day physician at length, labs/records/imaging reviewed by me.
--- NOTE | 2018-05-25 19:14 | CT ---
EXAM DATE: 05/25/2018 6:47 PM EDT AGE/SEX: 72 years / Female INDICATIONS: Shortness of breath and cough. Patient was subscribed antibiotics with no improvement. CLINICAL DATA: This is the patient's initial encounter. Patient reports that signs and symptoms have been present for 1 week and indicates a pain score of 6/10. MEDICAL/SURGICAL HISTORY: Osteoporosis. Hysterectomy. RADIATION DOSE: 5.3 CTDI (mGy) COMPARISON: [facility] [place], CT PULMONARY ANGIOGRAM, 10/30/2017. . TECHNIQUE: Multiple contiguous axial images were obtained through the chest without contrast. Image s were obtained in suspended respiration using multiple row detector helical technique. Using automa corey exposure control and adjustment of the mA and/or kV according to patient size, radiation dose was kept as low as reasonably achievable to obtain optimal diagnostic quality images. DICOM format imag e data is available electronically for review and comparison. FINDINGS: No focal lung consolidation. There is some mild peribronchial thickening. Mild distal airway disease predominantly at the lung bases. Mild coronary calcifications. Mild scoliosis. CONCLUSION: 1. Peribronchial thickening with mild distal airway disease. No consolidation, effusion or adenopath y. 2. Mild coronary calcifications. No acute findings in the upper abdomen. Electronically signed by: Tu Doyle MD 05/25/2018 7:13 PM EDT
[2018-05-25] MEDS: Sod Chloride 0.9% Inj 1,000 ML IV.CONT SCH (19:58)
[2018-05-25] MEDS: MethylPREDNISolone Sod Succinate Inj 40 MG/ML Vial IV.PUSH SCH (21:39)
[2018-05-25] MEDS: Senna/Docusate Sodium 8.6/50 MG Tablet PO SCH (21:40)
[2018-05-25] MEDS: Acetaminophen 325 MG Tablet PO PRN (21:46)
[2018-05-26] MEDS ORDERED: Sodium Chloride 0.9% 2 ML Flush PRN IV.FLUSH (00:45)
[2018-05-26] MEDS: MethylPREDNISolone Sod Succinate Inj 40 MG/ML Vial IV.PUSH SCH ×4 (02:47→21:12)
[2018-05-26] MEDS: Sod Chloride 0.9% Inj 1,000 ML IV.CONT SCH (04:39)
[2018-05-26] MEDS: Acetaminophen 325 MG Tablet PO PRN ×3 (09:02→21:21)
[2018-05-26] MEDS: levoFLOXacin 500 MG Tablet PO SCH (09:04)
[2018-05-26] MEDS: Senna/Docusate Sodium 8.6/50 MG Tablet PO SCH ×2 (09:04→21:11)
[2018-05-26] MEDS: Sodium Chloride 0.9% 2 ML Flush BID IV.FLUSH SCH ×2 (09:07→21:11)
[2018-05-26 09:19] LABS: Baso % (Auto) 0.3 % (0.0-2.0); Hematocrit 37.7 % (35.0-46.0); Hemoglobin 12.8 gm/dL (11.6-15.3); Lymph # (Auto) 1.8 th/mm3 (1.0-4.8); Lymph % (Auto) 15.4 % (9.0-44.0); Mean Corpuscular HGB Conc 33.9 % (32.0-36.0); Mean Corpuscular Hemoglobin 30.7 pg (27.0-34.0); Mean Corpuscular Volume 90.5 fL (80.0-100.0); Mean Platelet Volume 7.9 fL (7.0-11.0); Mono # (Auto) 0.3 th/mm3 (0.0-0.9); Mono % (Auto) 2.7 % (0.0-8.0); Neut # (Auto) 9.6 th/mm3 (1.8-7.7); Neut % (Auto) 81.6 % (16.0-70.0); Platelet Count 248 th/mm3 (150-450); Red Blood Count 4.17 mil/mm3 (4.00-5.30); Red Cell Distribution Width 14.8 % (11.6-17.2); White Blood Count 11.8 th/mm3 (4.0-11.0)
[2018-05-26 09:35] LABS: Alanine Aminotransferase 37 U/L (10-53); Alkaline Phosphatase 74 U/L (45-117); Anion Gap 9 meq/L (5-15); Aspartate Aminotransferase 16 U/L (15-37); Blood Urea Nitrogen 13 mg/dL (7-18); Calcium 8.7 mg/dL (8.5-10.1); Carbon Dioxide 19.1 meq/L (21.0-32.0); Chloride 112 meq/L (98-107); Glomerular Filtration Rate Greater Than 89 mL/min (>89); Glucose,Random 129 mg/dL (74-106); Potassium 3.8 meq/L (3.5-5.1); Sodium 140 meq/L (136-145); Total Protein 6.7 g/dL (6.4-8.2)
[2018-05-26] MEDS: amLODIPine 5 MG Tablet PO SCH (14:19)
--- NOTE | 2018-05-26 14:34 | P.PNIM ---
Subjective Interval history: Patient complaining of a cough. No other complaints. Physical Exam Vital signs: Vital Signs 05/25/18 16:40 05/25/18 16:43 05/25/18 17:44 Temperature 98.4 F Pulse Rate 101 H 100 H 90 Respiratory Rate 20 32 H 22 Blood Pressure 171/94 H 190/105 H Pulse Oximetry 97 97 05/25/18 19:25 05/25/18 19:57 05/25/18 19:58 Temperature Pulse Rate 107 H 111 H Respiratory Rate 18 22 22 Blood Pressure 131/83 Pulse Oximetry 98 97 05/25/18 20:41 05/25/18 21:14 05/26/18 00:00 Temperature 98.6 F 98.6 F Pulse Rate 109 H 110 H 107 H Respiratory Rate 16 20 20 Blood Pressure 128/73 116/94 H 136/79 Pulse Oximetry 97 95 95 05/26/18 04:00 05/26/18 08:00 05/26/18 08:19 Temperature 98.2 F 98.2 F Pulse Rate 101 H 98 H 116 H Respiratory Rate 16 18 16 Blood Pressure 141/73 H 153/80 H Pulse Oximetry 96 96 98 05/26/18 12:00 05/26/18 12:39 Temperature 98.3 F Pulse Rate 94 H 110 H Respiratory Rate 18 15 Blood Pressure 140/66 Pulse Oximetry 93 L Intake & Output 05/25/18 05/26/18 05/26/18 18:59 06:59 18:59 Intake Total 1000 / 1000 Balance 1000 / 1000 Weight 56.245 kg Intake: IV 1000 / 1000 NS Inj 1,000 ML @ 100 mls/hr IV 1000 / 1000 .CONT .Q10H [facility] Rx#:[id number] Narrative: General patient complaining of a cough HEENT extraocular movements are intact, discoloration at the tip of the nose status post melanoma resection Cardiovascular S1-S2 audible, RRR, no murmurs rubs or gallops Respiratory minimal wheezing bilaterally Abdomen soft, nontender, nondistended, normal bowel sounds Extremities no edema 2+ distal pulses in bilateral upper and lower extremities Neuro cranial nerves II through XII intact Results - Labs CBC & Chem 7: 05/26/18 09:00 05/26/18 09:00 Laboratory Results - last 24 hr 10/19/18 10/19/18 10/19/18 17:00 17:00 17:00 WBC 10.8 RBC 4.63 Hgb 14.4 Hct 42.1 MCV 91.0 MCH 31.0 MCHC 34.1 RDW 14.6 Plt Count 291 MPV 7.6 Neut % (Auto) 51.7 Lymph % (Auto) 37.1 [place]ne % (Auto) 8.5 H Eos % (Auto) 2.0 Baso % (Auto) 0.7 Neut # (Auto) 5.6 Lymph # (Auto) 4.0 [place] # (Auto) 0.9 Eos # (Auto) 0.2 Baso # (Auto) 0.1 WBC Differential . Differential Comment Auto diff final PT 10.5 INR 1.0 APTT 22.6 L Sodium 142 Potassium 3.7 Chloride 111 H Carbon Dioxide 24.9 Anion Gap 6 BUN 22 H Creatinine 0.70 Estimated GFR 83 L Random Glucose 95 Lactic Acid Calcium 9.3 Magnesium 2.3 Total Bilirubin 0.3 AST 29 ALT 48 Alkaline Phosphatase 84 C-Reactive Protein B-Natriuretic Peptide Total Protein 7.8 Albumin 3.6 Procalcitonin 05/25/18 05/25/18 05/25/18 17:00 17:00 17:05 WBC RBC Hgb Hct MCV MCH MCHC RDW Plt Count MPV Neut % (Auto) Lymph % (Auto) [place] % (Auto) Eos % (Auto) Baso % (Auto) Neut # (Auto) Lymph # (Auto) [place] # (Auto) Eos # (Auto) Baso # (Auto) WBC Differential Differential Comment PT INR APTT Sodium Potassium Chloride Carbon Dioxide Anion Gap BUN Creatinine Estimated GFR Random Glucose Lactic Acid 1.2 Calcium Magnesium Total Bilirubin AST ALT Alkaline Phosphatase C-Reactive Protein Less than 0.29 B-Natriuretic Peptide Total Protein Albumin Procalcitonin 0.03 05/25/18 05/26/18 05/26/18 18:47 09:00 09:00 WBC 11.8 H RBC 4.17 Hgb 12.8 Hct 37.7 MCV 90.5 MCH 30.7 MCHC 33.9 RDW 14.8 Plt Count 248 MPV 7.9 Neut % (Auto) 81.6 H Lymph % (Auto) 15.4 [place]ne % (Auto) 2.7 Eos % (Auto) 0.0 Baso % (Auto) 0.3 Neut # (Auto) 9.6 H Lymph # (Auto) 1.8 [place]ne # (Auto) 0.3 Eos # (Auto) 0.0 Baso # (Auto) 0.0 WBC Differential . Differential Comment Auto diff final PT INR APTT Sodium 140 Potassium 3.8 Chloride 112 H Carbon Dioxide 19.1 L Anion Gap 9 BUN 13 Creatinine 0.57 Estimated GFR Greater than 89 Random Glucose 129 H Lactic Acid Calcium 8.7 Magnesium Total Bilirubin 0.4 AST 16 ALT 37 Alkaline Phosphatase 74 C-Reactive Protein B-Natriuretic Peptide 13 Total Protein 6.7 D Albumin 3.0 L D Procalcitonin Microbiology 05/25/18 17:00 Blood - Peripheral Aerobic Blood Culture - Preliminary No growth in 1 day 05/25/18 17:00 Blood - Peripheral Anaerobic Blood Culture - Preliminary No growth in 1 day 05/25/18 17:05 Blood - Peripheral Aerobic Blood Culture - Preliminary No growth in 1 day 05/25/18 17:05 Blood - Peripheral Anaerobic Blood Culture - Preliminary No growth in 1 day - Imaging Impressions Chest CT 05/25/18 00:00 CONCLUSION: 1. Peribronchial thickening with mild distal airway disease. No consolidation, effusion or adenopathy. 2. Mild coronary calcifications. No acute findings in the upper abdomen. Chest X-Ray 05/25/18 16:57 CONCLUSION: Negative examination. Assessment and Plan - Assessment (1) COPD (chronic obstructive pulmonary disease) Code(s): J44.9 - Chronic obstructive pulmonary disease, unspecified Status: Acute (2) HTN (hypertension) Code(s): I10 - Essential (primary) hypertension Status: Acute (3) Dehydration Code(s): E86.0 - Dehydration Status: Acute - Plan This patient is a 72-year-old female with hypertension and COPD who came to our emergency department with complaint of shortness of breath that was worse with exertion. She also has been having a cough for nearly 10 days productive of greenish sputum. She was seen by her primary care doctor and received azithromycin however did not have any movement of her symptoms. 1. COPD exacerbation The patient presented with the symptoms mentioned above. Initially she was requiring supplemental oxygen. She is currently on room air her symptoms have improved somewhat. Chest imaging did not show any infiltrates however did show distal airway disease. She continues to have a cough. Sputum culture is pending Continue breathing treatments as needed Continue IV Solu-Medrol Continue antibiotics Cultures will be followed up 2. Hypertension Patient will be started on amlodipine today. Her blood pressure medications will be adjusted as needed Patient is ambulatory, no pharmacotherapy for DVT prophylaxis
[2018-05-27] MEDS: MethylPREDNISolone Sod Succinate Inj 40 MG/ML Vial IV.PUSH SCH ×2 (02:31→08:21)
[2018-05-27 07:58] VITALS: RESP 18
[2018-05-27] MEDS: Senna/Docusate Sodium 8.6/50 MG Tablet PO SCH (08:21)
[2018-05-27] MEDS: levoFLOXacin 500 MG Tablet PO SCH (08:22)
[2018-05-27] MEDS: amLODIPine 5 MG Tablet PO SCH (08:22)
[2018-05-27] MEDS: Sodium Chloride 0.9% 2 ML Flush BID IV.FLUSH SCH (08:23)
[2018-05-27] MEDS: Acetaminophen 325 MG Tablet PO PRN (08:25)
[2018-05-27 12:46] VITALS: TEMP 98.2
--- NOTE | 2018-05-27 15:20 | P.DS ---
Date of admission: 05/25/18 18:33 Primary care physician: Padmaja Garcia MD Brief History from admission: This is a 72-year-old female with a PMH of HTN and COPD who presents to ER with complaints of SOB, wheezing and productive cough w/ green-colored sputum x10 days. Was seen by PCP and given Rx for Z-pack which she completed 2 days ago, notes minimal improvement in symptoms. DS: Diagnosis - Discharge Diagnosis (1) COPD (chronic obstructive pulmonary disease) Status: Acute (2) HTN (hypertension) Status: Acute (3) Dehydration Status: Acute DS: Medications - Discharge Medications Prescriptions: albuterol sulfate [ProAir HFA] 2 puff INHALATION Q4-6H PRN #1 inhaler PRN Reason: Shortness Of Breath Or Wheezing amlodipine [Norvasc] 5 mg PO DAILY #30 tab budesonide-formoterol [Symbicort] 2 puff INHALATION BID #1 inhaler levofloxacin 500 mg PO DAILY #4 tab prednisone 10 mg PO DAILY #14 tab DS: Summary Hospital Course: This patient is a 72-year-old female with a diagnosis of hypertension and COPD who came into our emergency department with complaints of shortness of breath that were worse with exertion. She also has been having a cough for 10 days productive of greenish sputum. According to the patient was seen by her primary care physician and given azithromycin however she did not have any improvement of her symptoms. The symptoms continue to get worse and she came into our emergency department for evaluation and care. 1. Acute hypoxic restaurant failure secondary to COPD exacerbation 2. Tobacco abuse Initially when the patient presented she was found to be hypoxic and was requiring supplemental oxygen. A chest x-ray was done which did not show any evidence of infiltrates. On physical examination she was wheezing, complaining of shortness of breath, and had a productive cough. She was afebrile and WBC count was normal. She was started on IV antibiotics and IV steroids. Breathing treatments were given [id number] initially. She was titrated off of supplemental oxygen and transitioned to p.o. steroids. Her symptoms have improved significantly and she is now able to ambulate without any complaints of shortness of breath. She will be discharged on p.o. Levaquin for 4 more days and a tapering dose of prednisone. She will also be given Symbicort and albuterol inhalers. Patient was advised to avoid smoking. 3. Hypertension Throughout the hospitalization the patient's blood pressure was elevated. She was started on amlodipine 5 mg p.o. daily. Her blood pressure is now under control. She should follow-up with her primary care physician Dr. Garcia within 1 week. Her blood pressure medications can be adjusted if needed then. - Time Spent with Patient Total time spent providing and/or coordinating discharge services: Greater than 30 minutes Exam Vital signs: Vital Signs 05/26/18 16:00 05/26/18 19:47 05/26/18 20:00 Temperature 98.9 F 98.7 F Pulse Rate 101 H 100 H 110 H Respiratory Rate 18 17 20 Blood Pressure 147/79 H 136/74 Pulse Oximetry 96 98 95 05/27/18 00:00 05/27/18 03:51 05/27/18 07:27 Temperature 98.6 F 98.4 F 98.4 F Pulse Rate 100 H 89 78 Respiratory Rate 18 18 16 Blood Pressure 139/77 125/75 135/71 Pulse Oximetry 96 90 L 98 05/27/18 07:56 05/27/18 12:44 05/27/18 14:25 Temperature 98.2 F Pulse Rate 89 94 H 90 Respiratory Rate 18 18 18 Blood Pressure 132/70 Pulse Oximetry 97 96 Intake & Output 05/26/18 05/27/18 05/27/18 18:59 06:59 18:59 Intake Total 1500 / 1500 Balance 1500 / 1500 Weight 56.245 kg Intake: IV 1000 / 1000 NS Inj 1,000 ML @ 100 mls/hr IV 1000 / 1000 .CONT .Q10H [facility] Rx#:[id number] Oral 500 / 500 Other: # Voids 3 Weight On Admission 56.245 kg Narrative: General patient in no acute distress HEENT extraocular movements are intact, clear oropharyngeal mucosa, no JVD, discoloration at the tip of the nose status post melanoma resection Cardiovascular S1-S2 audible, RRR, no murmurs rubs or gallops Respiratory clear to auscultation bilaterally Abdomen soft, nontender, nondistended, normal bowel sounds Extremities no edema 2+ distal pulses in bilateral upper and lower extremities Neuro cranial nerves II through XII intact Results Procedures completed during hospitalization: None Labs on day of discharge: Preliminary micro results at discharge 05/25/18 17:00 Aerobic Blood Culture - Preliminary Blood - Peripheral No growth in 2 days Anaerobic Blood Culture - Preliminary No growth in 2 days 05/25/18 17:05 Aerobic Blood Culture - Preliminary Blood - Peripheral No growth in 2 days Anaerobic Blood Culture - Preliminary No growth in 2 days - Impressions ITS Impressions Chest CT 05/25/18 00:00 CONCLUSION: 1. Peribronchial thickening with mild distal airway disease. No consolidation, effusion or adenopathy. 2. Mild coronary calcifications. No acute findings in the upper abdomen. Chest X-Ray 05/25/18 16:57 CONCLUSION: Negative examination. Discharge Plan - Discharge Disposition Patient Disposition: 01 Discharge Home - Discharge Condition Condition: Good - Discharge Order Discharge Orders: Discharge Order (Routine); Ordered 05/27/18 Ordered By: Maliha Christine - Physicians Team Primary Care Provider: Padmaja Garcia Attending Provider: Maliha Christine
[2018-05-27 16:02] VITALS: BP 141/77; PULSE 100; O2SAT 95
== END 2018-05-27 17:09 | disposition home or self-care (01) ==
LOC: NEDA 16:19 → NEPC 16:19 → NEPGCP 21:14
PROVIDERS: ADMIT Hospitalist; ATTEND Hospitalist
DX: I10 Essential (primary) hypertension; J96.21 Acute and chronic respiratory failure with hypoxia; Z90.710 Acquired absence of both cervix and uterus; R00.0 Tachycardia, unspecified; J18.9 Pneumonia, unspecified organism; J44.0 Chronic obstructive pulmonary disease with (acute) lower respiratory infection; F17.210 Nicotine dependence, cigarettes, uncomplicated; J44.1 Chronic obstructive pulmonary disease with (acute) exacerbation; R19.7 Diarrhea, unspecified; M81.0 Age-related osteoporosis without current pathological fracture; E86.0 Dehydration; R68.83 Chills (without fever)